=== PATIENT | female | born 1980 ===

== ENCOUNTER 2021-01-19 12:17 | Outpatient (REF) | payer OTHER, SELFPAY ==
[2021-01-19 13:55] LABS: MANUAL DIFF FLAG NO
[2021-01-19 14:02] LABS: Basophils Percent Auto 0.5 % (0-2); Eosinophils Absolute Auto 0.1 X10*3/uL (0.0-0.4); Eosinophils Percent Auto 0.9 % (0-4); Hematocrit 36.1 % (37-47); Hemoglobin 11.4 g/dl (12.0-16.0); Imm Gran Abs Auto 0.01 X10*3/uL (0.00-0.03); Imm Gran Pct Auto 0.2 % (0.0-0.4); Lymphocytes Absolute Auto 1.6 X10*3/uL (1.2-4.9); Lymphocytes Percent Auto 26.8 % (20-40); Mean Corpuscular HGB Conc 31.6 g/dl (31.0-35.0); Mean Corpuscular Hemoglobin 29.8 pg (27.0-33.0); Mean Corpuscular Volume 94.5 fL (80-98); Mean Platelet Volume 11.7 fL (9.4-12.3); Monocytes Absolute Auto 0.4 X10*3/uL (0.1-1.2); Monocytes Percent Auto 7.3 % (2-11); Neutrophils Absolute Auto 3.7 X10*3/uL (2.0-8.3); Neutrophils Percent Auto 64.3 % (45-73); Platelet Count 259 X10*3/uL (160-400); Red Blood Count 3.82 X10*6/uL (4.20-5.50); Red Cell Distribution Width 13.2 % (11.0-16.0); White Blood Count 5.8 X10*3/uL (4.8-10.8)
[2021-01-19 14:28] LABS: Alanine Aminotransferase 17 U/L (0-31); Albumin Level 4.2 g/dL (3.5-5.0); Alkaline Phosphatase 65 U/L (39-117); Anion Gap 12 (12-20); Aspartate Amino Transferase 14 U/L (5-31); Bilirubin Total 0.4 mg/dL (0.0-1.0); Blood Urea Nitrogen 11 mg/dL (9-16); Calcium 9.4 mg/dL (8.4-10.2); Carbon Dioxide 27 mmol/L (22-29); Chloride 104 mmol/L (96-108); Cholesterol 186 mg/dL; Estimated Glomerular Filt Rate > 60; Glucose Fasting 90 mg/dL (60-99); HDL Cholesterol 59 mg/dL; Iron 65 mcg/dL (30-160); LDL Cholesterol Calculated 96 mg/dl; Percent Iron Saturation 15 % (15-50); Potassium 4.7 mmol/L (3.3-5.1); Sodium 138 mmol/L (135-145); Total Iron Binding Capacity 422 mcg/dL (228-428); Total Protein 7.5 g/dL (6.5-8.0); Triglycerides 157 mg/dL; Unsaturated Iron Binding 357 ug/dL
[2021-01-19 14:45] LABS: Creatinine Urine 185.36 mg/dL
[2021-01-19 14:50] LABS: TSH reflex Free T4 1.98 uIU/mL (0.32-4.0); Vitamin D 25-OH Total 30.8 ng/mL (>30)
[2021-01-19 15:00] LABS: Folate > 20.0 ng/mL (> or = 4.0); Vitamin B12 615 pg/mL (200-900)
== END 2021-01-19 12:18 | disposition home or self-care (01) ==
LOC: HO.WFDLDS 12:17
PROVIDERS: Visit Provider Family Medicine
DX: Z00.00 Encounter for general adult medical examination without abnormal findings (principal); Z13.9 Encounter for screening, unspecified
CPT/HCPCS: 36415; 80053; 80061; 82043; 82306; 82607; 82746; 83540; 84443; 85025

== ENCOUNTER 2021-02-06 10:04 | Outpatient (REF) | payer OTHER, SELFPAY ==
[2021-02-08 18:11] LABS: HPV mRNA E6/E7 rflx Not Detected (Not Detected)
== END 2021-02-06 10:05 | disposition home or self-care (01) ==
LOC: HO.LAB 10:04
PROVIDERS: Visit Provider Obstetrics & Gynecology
DX: Z12.4 Encounter for screening for malignant neoplasm of cervix (principal)
CPT/HCPCS: 36415; 87624; 88142

== ENCOUNTER 2021-02-16 14:49 | Outpatient (REF) | payer OTHER, SELFPAY ==
--- NOTE | ~2021-02-16 | US_ITS ---
EXAMINATION: US PELVIS ULTRASOUND CLINICAL INFORMATION: Enlarged uterus. Age 40. LMP 01/21/2021. COMPARISON: None TECHNIQUE: Ultrasound of the pelvis is performed using both transabdominal and transvaginal transducers along with Doppler. Transvaginal imaging is performed due to inadequate visualization transabdominally. FINDINGS: Uterus: The uterus is anteverted and enlarged, measuring 20.0 x 8.0 x 14.4 cm. Volume 1,198 mL. The uterine surface is smooth. The myometrium is heterogeneous and the endometrial stripe is not clearly visualized. There is no visible fluid in the uterine cavity. There are several fibroids suggested, largest is central body fundus measuring 9.0 x 7.3 x 8.8 cm. There are 4 other fibroids are measured although the margins are ill-defined. They range in size from 5.1 cm to 2.3 cm. Possibility of superimposed adenomyosis cannot be excluded. Adnexa: The right ovary measures 3.7 x 2.2 x 2.5 cm. Volume 10.6 mL. There is no right adnexal mass. The left ovary is not visualized. There is no visible left adnexal mass and no pelvic ascites. US/US pelvic complete IMPRESSION: 1. Uterus: Enlarged uterus with probable multiple fibroids, largest visualized 9.0 cm. Possibility of superimposed adenomyosis cannot be excluded. If clinically indicated, further evaluation of the uterus could be performed with MRI without and with gadolinium contrast. 2. Adnexa: Unremarkable right ovary. Left ovary not visualized. No adnexal mass or pelvic ascites.
--- NOTE | ~2021-02-16 | US_ITS ---
EXAMINATION: US PELVIS ULTRASOUND CLINICAL INFORMATION: Enlarged uterus. Age 40. LMP 01/21/2021. COMPARISON: None TECHNIQUE: Ultrasound of the pelvis is performed using both transabdominal and transvaginal transducers along with Doppler. Transvaginal imaging is performed due to inadequate visualization transabdominally. FINDINGS: Uterus: The uterus is anteverted and enlarged, measuring 20.0 x 8.0 x 14.4 cm. Volume 1,198 mL. The uterine surface is smooth. The myometrium is heterogeneous and the endometrial stripe is not clearly visualized. There is no visible fluid in the uterine cavity. There are several fibroids suggested, largest is central body fundus measuring 9.0 x 7.3 x 8.8 cm. There are 4 other fibroids are measured although the margins are ill-defined. They range in size from 5.1 cm to 2.3 cm. Possibility of superimposed adenomyosis cannot be excluded. Adnexa: The right ovary measures 3.7 x 2.2 x 2.5 cm. Volume 10.6 mL. There is no right adnexal mass. The left ovary is not visualized. There is no visible left adnexal mass and no pelvic ascites. US/US transvaginal IMPRESSION: 1. Uterus: Enlarged uterus with probable multiple fibroids, largest visualized 9.0 cm. Possibility of superimposed adenomyosis cannot be excluded. If clinically indicated, further evaluation of the uterus could be performed with MRI without and with gadolinium contrast. 2. Adnexa: Unremarkable right ovary. Left ovary not visualized. No adnexal mass or pelvic ascites.
== END 2021-02-16 14:50 | disposition home or self-care (01) ==
LOC: HO.US 14:49
PROVIDERS: Visit Provider Obstetrics & Gynecology
DX: N85.2 Hypertrophy of uterus (principal)
CPT/HCPCS: 76830; 76856

== ENCOUNTER → 2021-02-22 11:41 | Outpatient (BNVA) | payer OTHER, SELFPAY | PROVIDERS: PCP Family Medicine; Visit Provider Obstetrics & Gynecology ==

== ENCOUNTER 2021-03-30 12:17 | Outpatient (REF) | payer OTHER, SELFPAY ==
--- NOTE | ~2021-03-30 | MM_ITS ---
EXAMINATION: MM SCREENING DIGITAL BREAST TOMOSYNTHESIS, BILATERAL CLINICAL INFORMATION: Screening. Asymptomatic. No prior breast imaging. Age 40. Family history breast cancer, maternal aunt. The lifetime risk of breast cancer based on the Tyrer-Cuzick Model is 11%. COMPARISON: None (current study represents initial baseline exam). TECHNIQUE: Digital breast tomosynthesis is performed in both the craniocaudal and mediolateral oblique views along with computer-aided detection (CAD). Synthesized 2D images are generated from the tomosynthesis. FINDINGS: There are scattered areas of fibroglandular density (ACR BI-RADS breast composition Category b). There is some minor scarring present consistent with prior history reduction mammoplasty. The left breast shows no mass or architectural abnormality. Neither breast shows abnormal calcifications. The axilla are unremarkable. Right breast has subtle parenchymal asymmetry mid 5:00 right breast on tomography, likely combination of reduction mammoplasty scarring and incompletely compressed glandular tissue. Patient will be recalled to fully characterize baseline appearance. MM/MM tomosynthesis screening BI IMPRESSION: 1. Right: Subtle parenchymal asymmetry mid 5:00 position on tomography, likely combination of scarring and incompletely compressed glandular tissue. 2. Left: No mammographic evidence of malignancy. ASSESSMENT: BI-RADS 0: Incomplete - Need Additional Imaging Evaluation RECOMMENDATION: 1. Additional views of the right breast (3-D spot CC, 3-D spot ML). 2. Targeted ultrasound if warranted after review of the additional views. 3. Radiology department staff will contact the patient for additional imaging. This patient's information was entered into a reminder system with a target due date for their next mammogram.
== END 2021-03-30 12:18 | disposition home or self-care (01) ==
LOC: HO.MAMMO 12:17
PROVIDERS: Visit Provider Family Medicine
DX: Z12.31 Encounter for screening mammogram for malignant neoplasm of breast (principal)
CPT/HCPCS: 77063; 77067

== ENCOUNTER 2021-04-13 14:37 | Outpatient (REF) | payer OTHER, SELFPAY ==
--- NOTE | ~2021-04-13 | MM_ITS ---
EXAMINATION: MM DIAGNOSTIC DIGITAL BREAST TOMOSYNTHESIS, RIGHT CLINICAL INFORMATION: Recall from baseline screening for parenchymal asymmetry mid lower right breast. Prior history reduction mammoplasty 2007. Family history breast cancer, maternal aunt. TC score 11%. COMPARISON: Mammography: 03/30/2021 (baseline). TECHNIQUE: Digital breast tomosynthesis is performed. 2D images are generated from the tomosynthesis. The following views are obtained: Spot CC x3, spot ML. FINDINGS: There are scattered areas of fibroglandular density (ACR BI-RADS breast composition Category b). The additional views show parenchymal asymmetry mid 6:00 right breast with admixture of fibroglandular and fatty tissue composition. There is no mass or three-dimensional architectural abnormality. Finding is likely benign. Management plan is for short interval follow-up right mammography in 6 months to confirm stability. Results are discussed with the patient at time of visit. MM/MM tomosynthesis added views R IMPRESSION: Additional views show probable benign parenchymal asymmetry mid 6:00 right breast. ASSESSMENT: BI-RADS 3: Probably Benign RECOMMENDATION: Diagnostic right mammography in 6 months. This patient's information was entered into a reminder system with a target due date for their next mammogram.
== END 2021-04-13 14:38 | disposition home or self-care (01) ==
LOC: HO.MAMMO 14:37
PROVIDERS: Visit Provider Family Medicine
DX: N64.89 Other specified disorders of breast (principal)
CPT/HCPCS: 77061; 77065

== ENCOUNTER 2021-08-04 10:03 | Outpatient (REF) | payer OTHER, SELFPAY ==
[2021-08-04 14:01] LABS: Basophils Percent Auto 0.6 % (0-2); Hematocrit 34.3 % (37-47); Hemoglobin 10.7 g/dl (12.0-16.0); Lymphocytes Absolute Auto 1.3 X10*3/uL (1.2-4.9); Lymphocytes Percent Auto 41.6 % (20-40); Mean Corpuscular HGB Conc 31.2 g/dl (31.0-35.0); Mean Corpuscular Hemoglobin 28.3 pg (27.0-33.0); Mean Corpuscular Volume 90.7 fL (80-98); Mean Platelet Volume 11.8 fL (9.4-12.3); Monocytes Absolute Auto 0.2 X10*3/uL (0.1-1.2); Monocytes Percent Auto 7.1 % (2-11); Neutrophils Absolute Auto 1.5 X10*3/uL (2.0-8.3); Neutrophils Percent Auto 49.7 % (45-73); Platelet Count 281 X10*3/uL (160-400); Red Blood Count 3.78 X10*6/uL (4.20-5.50); Red Cell Distribution Width 13.9 % (11.0-16.0); White Blood Count 3.1 X10*3/uL (4.8-10.8)
[2021-08-04 14:02] LABS: MANUAL DIFF FLAG NO
[2021-08-04 14:23] LABS: Alanine Aminotransferase 10 U/L (0-31); Albumin Level 4.3 g/dL (3.5-5.0); Alkaline Phosphatase 66 U/L (39-117); Anion Gap 10 (12-20); Aspartate Amino Transferase 13 U/L (5-31); Bilirubin Total 0.3 mg/dL (0.0-1.0); Blood Urea Nitrogen 11 mg/dL (9-16); Carbon Dioxide 28 mmol/L (22-29); Chloride 107 mmol/L (96-108); Estimated Glomerular Filt Rate > 60; Glucose Fasting 90 mg/dL (60-99); Iron 40 mcg/dL (30-160); Percent Iron Saturation 9 % (15-50); Potassium 4.7 mmol/L (3.3-5.1); Sodium 140 mmol/L (135-145); Total Iron Binding Capacity 439 mcg/dL (228-428); Total Protein 7.6 g/dL (6.5-8.0); Unsaturated Iron Binding 399 ug/dL
== END 2021-08-04 10:04 | disposition home or self-care (01) ==
LOC: HO.WFDLDS 10:03
PROVIDERS: Visit Provider Family Medicine
DX: Z00.00 Encounter for general adult medical examination without abnormal findings (principal); D64.9 Anemia, unspecified; R73.01 Impaired fasting glucose
CPT/HCPCS: 36415; 80053; 83540; 85025

== ENCOUNTER → 2021-08-23 14:10 | Outpatient (BNVA) | payer OTHER, SELFPAY | PROVIDERS: PCP Family Medicine; Visit Provider Obstetrics & Gynecology ==

== ENCOUNTER 2021-10-19 13:57 | Outpatient (REF) | payer OTHER, SELFPAY ==
--- NOTE | ~2021-10-19 | MM_ITS ---
EXAMINATION: MM DIAGNOSTIC DIGITAL BREAST TOMOSYNTHESIS, RIGHT CLINICAL INFORMATION: Short interval follow-up probable benign parenchymal asymmetry mid 6:00 right breast. Prior history reduction mammoplasty, 2007. The lifetime risk of breast cancer based on the Tyrer-Cuzick Model is 13%. COMPARISON: Mammography: 04/13/2021, 03/30/2021 (baseline). TECHNIQUE: Digital breast tomosynthesis is performed in both the craniocaudal and mediolateral oblique views along with computer-aided detection (CAD). Synthesized 2D images are generated from the tomosynthesis. FINDINGS: There are scattered areas of fibroglandular density (ACR BI-RADS breast composition Category b). Parenchymal pattern is unremarkable. There is no mass or developing density or architectural abnormality. Parenchymal asymmetry lower right breast on MLO view noted at screening is less conspicuous. Unremarkable parenchymal pattern. Return to screening. Results are provided to the patient at time of visit by the technologist. MM/MM tomosynthesis diagnostic RT IMPRESSION: No mammographic evidence of malignancy. ASSESSMENT: BI-RADS 2: Benign RECOMMENDATION: Routine annual mammography screening. This patient's information was entered into a reminder system with a target due date for their next mammogram.
== END 2021-10-19 13:58 | disposition home or self-care (01) ==
LOC: HO.MAMMO 13:57
PROVIDERS: Visit Provider Family Medicine
DX: N64.89 Other specified disorders of breast (principal)
CPT/HCPCS: 77061; 77065

== ENCOUNTER 2021-11-03 09:53 | Outpatient (REF) | payer OTHER, SELFPAY ==
[2021-11-03 11:54] LABS: MANUAL DIFF FLAG NO
[2021-11-03 12:04] LABS: Basophils Percent Auto 0.3 % (0-2); Eosinophils Absolute Auto 0.1 X10*3/uL (0.0-0.4); Eosinophils Percent Auto 1.8 % (0-4); Hematocrit 32.3 % (37.0-47.0); Hemoglobin 9.8 g/dl (12.0-16.0); Imm Gran Abs Auto 0.01 X10*3/uL (0.00-0.03); Imm Gran Pct Auto 0.3 % (0.0-0.4); Lymphocytes Absolute Auto 1.1 X10*3/uL (1.2-4.9); Lymphocytes Percent Auto 34.6 % (20-40); Mean Corpuscular HGB Conc 30.3 g/dl (31.0-35.0); Mean Corpuscular Hemoglobin 27.3 pg (27.0-33.0); Mean Platelet Volume 11.7 fL (9.4-12.3); Monocytes Absolute Auto 0.3 X10*3/uL (0.1-1.2); Neutrophils Absolute Auto 1.8 x10*3/uL (2.0-8.3); Platelet Count 293 X10*3/uL (160-400); Red Blood Count 3.59 X10*6/uL (4.20-5.50); Red Cell Distribution Width 14.5 % (11.0-16.0); White Blood Count 3.3 X10*3/uL (4.8-10.8)
[2021-11-03 12:05] LABS: Estimated Average Glucose 114 mg/dL; Hemoglobin A1c % 5.6 %
[2021-11-03 12:27] LABS: Iron 35 mcg/dL (30-160); Percent Iron Saturation 8 % (15-50); Total Iron Binding Capacity 431 mcg/dL (228-428); Unsaturated Iron Binding 396 ug/dL
== END 2021-11-03 09:54 | disposition home or self-care (01) ==
LOC: HO.WFDLDS 09:53
PROVIDERS: Visit Provider Family Medicine
DX: Z00.00 Encounter for general adult medical examination without abnormal findings (principal); D50.9 Iron deficiency anemia, unspecified; R73.01 Impaired fasting glucose
CPT/HCPCS: 36415; 83036; 83540; 85025

== ENCOUNTER 2021-12-18 15:04 | Outpatient (REF) | payer OTHER, SELFPAY ==
--- NOTE | ~2021-12-18 | US_ITS ---
EXAMINATION: US PELVIS CLINICAL INFORMATION: Excessive menstrual bleeding. COMPARISON: None TECHNIQUE: Ultrasound of the pelvis is performed using both transabdominal and transvaginal transducers along with Doppler. Transvaginal imaging is performed due to inadequate visualization transabdominally. Comparison with January 2021 exam is difficult. FINDINGS: The uterus is enlarged and measures 17.8 x 10.6 x 12.8 cm in dimension. There are multiple uterine lesions probably representing fibroids. There is a 6.2 x 5 x 6.2 cm fibroid in the anterior lower uterine segment that may be increased from 3.6 x 3.3 x 4.3 cm. There is a 7.2 x 6.1 x 5.8 cm central upper uterine body fibroid adjacent to the endometrium slightly decreased in size from 8.8 x 7.3 x 9 cm. There is a 3.5 x 3.9 x 3.6 cm posterior uterine body fibroid that is not appreciably changed. There is a 3.9 x 4.6 x 4.4 cm upper posterior uterine body fibroid that is not appreciably changed. The previously identified subserosal left fundal 2 cm uterine fibroid on January 2021 exam not appreciated on the current exam. The endometrium is not seen. The right ovary is seen transabdominally only and normal-appearing and measures 2 x 2.7 x 5.8 cm. The left ovary is not seen. There is no fluid in the pelvis. US/US pelvic and transvaginal IMPRESSION: Enlarged fibroid uterus. Comparison of fibroids with January 2021 exam is difficult. There may be interval increase in the anterior lower uterine body fibroid now measuring 6.2 x 5 x 6.2 cm. Endometrium and left ovary not seen.
== END 2021-12-18 15:05 | disposition home or self-care (01) ==
LOC: HO.US 15:04
PROVIDERS: PCP Family Medicine; Visit Provider Advanced Practice Midwife
DX: N92.0 Excessive and frequent menstruation with regular cycle (principal)
CPT/HCPCS: 76830; 76856

== ENCOUNTER 2021-12-28 09:43 | Outpatient (REF) | payer OTHER, SELFPAY ==
--- NOTE | ~2021-12-28 | MR_ITS ---
EXAMINATION: MR PELVIS WITHOUT AND WITH CONTRAST CLINICAL INFORMATION: Fibroids. COMPARISON: Previous pelvic ultrasounds December 2021 and January 2021. TECHNIQUE: Sagittal axial and coronal sequences through the pelvis with and without contrast. The patient received 10 mL Gadavist contrast. FINDINGS: The uterus is enlarged and measures 18.5 x 15.0 x 11.0 cm in sagittal, transverse and AP dimension. By MRI, there is a suggestion of a large central left uterine mass displacing the endometrium posteriorly and to the right. This measures 13.0 x 7.8 x 11.3 cm in sagittal, AP, and transverse dimensions. This is low signal on T1-weighted sequences, heterogeneous on T2-weighted sequences and demonstrates homogeneous enhancement. There is a left adnexal mass that measures 7.0 x 4.0 x 6.0 cm in sagittal, AP, and transverse dimensions. This is low signal on T1-weighted sequences, heterogeneous signal on T2 weighted sequences and demonstrates enhancement. This is continuous with the uterus and likely represents a pedunculated fibroid. The left ovary is not identified. There is an adjacent more anterior 5.0 x 3.0 x 3.5 cm simple-appearing cyst. The right ovary is normal-appearing and measures 3.6 x 2.0 x 2.0 cm in sagittal, AP, and transverse dimensions. This contains small simple cysts or follicles. The endometrium appears displaced posteriorly and to the right. The endometrium does not appear thickened measuring 3 mm. The junctional zone does not appear thickened. The cervix is normal-appearing. The bladder is displaced by the enlarged uterus. There is a small amount of fluid in the pelvis. There are no enlarged lymph nodes. Bony structures are unremarkable. MR/MR pelvis wo/w con IMPRESSION: Enlarged uterus. Large left central uterine mass probably representing a fibroid measuring 13.0 x 8.0 x 11.0 cm and 7.0 x 4.0 x 6.0 cm left adnexal mass suggestive of a pedunculated fibroid. The endometrium is displaced posteriorly and to the right by the fibroid. The endometrium does not appear thickened. The left ovary is not seen. 5.0 x 3.5 x 3.0 cm simple left adnexal cyst. Normal-appearing right ovary. Small amount of fluid in the pelvis.
== END 2021-12-28 09:44 | disposition home or self-care (01) ==
LOC: HO.MRI 09:43
PROVIDERS: Visit Provider Radiology Vascular & Interventional Radiology
DX: D25.9 Leiomyoma of uterus, unspecified (principal)
CPT/HCPCS: 72197; A9585

== ENCOUNTER 2022-01-05 08:16 | Outpatient (REF) | payer OTHER, SELFPAY ==
[2022-01-05 10:38] LABS: MANUAL DIFF FLAG NO
[2022-01-05 10:39] LABS: Basophils Percent Auto 0.6 % (0-2); Eosinophils Absolute Auto 0.1 X10*3/uL (0.0-0.4); Eosinophils Percent Auto 1.4 % (0-4); Hemoglobin 9.5 g/dl (12.0-16.0); Imm Gran Abs Auto 0.01 X10*3/uL (0.00-0.03); Imm Gran Pct Auto 0.2 % (0.0-0.4); Lymphocytes Absolute Auto 1.3 X10*3/uL (1.2-4.9); Lymphocytes Percent Auto 27.1 % (20-40); Mean Corpuscular HGB Conc 29.7 g/dl (31.0-35.0); Mean Corpuscular Hemoglobin 25.6 pg (27.0-33.0); Mean Corpuscular Volume 86.3 fL (80.0-98.0); Mean Platelet Volume 12.3 fL (9.4-12.3); Monocytes Absolute Auto 0.4 X10*3/uL (0.1-1.2); Monocytes Percent Auto 7.9 % (2-11); Neutrophils Percent Auto 62.8 % (45-73); Platelet Count 311 X10*3/uL (160-400); Red Blood Count 3.71 X10*6/uL (4.20-5.50); Red Cell Distribution Width 15.2 % (11.0-16.0); White Blood Count 4.8 X10*3/uL (4.8-10.8)
[2022-01-05 11:18] LABS: Blood Urea Nitrogen 11 mg/dL (9-16); Estimated Glomerular Filt Rate > 60
[2022-01-06 08:47] LABS: Follicle Stimulating Hormone 9.8 mIU/mL; Lutenizing Hormone 8.5 mIU/mL
[2022-01-10 23:36] LABS: Estradiol Ultra Sensitive 63 pg/mL
== END 2022-01-05 08:17 | disposition home or self-care (01) ==
LOC: HO.WFDLDS 08:16
PROVIDERS: Absent Provider Radiology Vascular & Interventional Radiology; PCP Family Medicine; Visit Provider Obstetrics & Gynecology
DX: D25.9 Leiomyoma of uterus, unspecified (principal); R94.4 Abnormal results of kidney function studies; R79.89 Other specified abnormal findings of blood chemistry; Z31.49 Encounter for other procreative investigation and testing
CPT/HCPCS: 36415; 82397; 82565; 82670; 83001; 83002; 84520; 85025

== ENCOUNTER 2022-01-19 11:21 | Outpatient (REF) | payer OTHER, SELFPAY ==
[2022-01-19 13:43] LABS: Iron 34 mcg/dL (30-160); Percent Iron Saturation 7 % (15-50); Total Iron Binding Capacity 484 mcg/dL (228-428); Unsaturated Iron Binding 450 ug/dL
[2022-01-19 14:22] LABS: Folate 13.3 ng/mL (> or = 4.0); Vitamin B12 461 pg/mL (200-900)
== END 2022-01-19 11:22 | disposition home or self-care (01) ==
LOC: HO.WFDLDS 11:21
PROVIDERS: Visit Provider Hospitalist
DX: D50.9 Iron deficiency anemia, unspecified (principal)
CPT/HCPCS: 36415; 82607; 82746; 83540

== ENCOUNTER → 2022-01-24 08:13 | Outpatient (BNV) | payer OTHER, SELFPAY | PROVIDERS: PCP Family Medicine; Referring Provider Hospitalist; Visit Provider Internal Medicine | DX: D50.9 Iron deficiency anemia, unspecified (principal); Z98.84 Bariatric surgery status; Z90.710 Acquired absence of both cervix and uterus | CPT/HCPCS: 99203; 99213; 99214 ==

== ENCOUNTER 2022-02-08 07:58 | Outpatient (REF) | payer OTHER, SELFPAY | END 2022-02-08 07:59 | disposition home or self-care (01) | LOC: HO.MDS 07:58 | PROVIDERS: Visit Provider Internal Medicine | DX: D50.9 Iron deficiency anemia, unspecified (principal) | CPT/HCPCS: 96365; J1200; J1750; Q0163 ==

== ENCOUNTER 2022-02-09 08:07 | Outpatient (REF) | payer OTHER, SELFPAY ==
[2022-02-09 11:35] LABS: Hematocrit 29.8 % (37.0-47.0); Hemoglobin 8.7 g/dl (12.0-16.0); Mean Corpuscular HGB Conc 29.2 g/dl (31.0-35.0); Mean Corpuscular Hemoglobin 24.6 pg (27.0-33.0); Mean Corpuscular Volume 84.4 fL (80.0-98.0); Mean Platelet Volume 12.1 fL (9.4-12.3); Platelet Count 210 X10*3/uL (160-400); Red Blood Count 3.53 X10*6/uL (4.20-5.50); White Blood Count 4.4 X10*3/uL (4.8-10.8)
[2022-02-09 12:33] LABS: Ferritin 9 ng/mL (10-250)
[2022-02-09 12:58] LABS: Vitamin D 25-OH Total 25.1 ng/mL (>30)
[2022-02-10 13:06] LABS: BV Int Neg Control Negative (Negative); BV Int Pos Control Positive (Positive)
[2022-02-14 01:06] LABS: Zinc 70 mcg/dL (60-130)
[2022-02-15 12:31] LABS: Vitamin A 40 mcg/dL (38-98)
[2022-02-15 14:05] LABS: Vitamin B1 9 nmol/L (8-30)
== END 2022-02-09 08:08 | disposition home or self-care (01) ==
LOC: HO.LAB 08:07
PROVIDERS: Advanced Practice Midwife; Internal Medicine; PCP Family Medicine; Visit Provider Physician Assistant Surgical
DX: Z01.411 Encounter for gynecological examination (general) (routine) with abnormal findings (principal); D25.9 Leiomyoma of uterus, unspecified; N89.8 Other specified noninflammatory disorders of vagina; E66.9 Obesity, unspecified; D50.9 Iron deficiency anemia, unspecified; Z68.39 Body mass index [BMI] 39.0-39.9, adult
CPT/HCPCS: 36415; 82306; 82728; 84425; 84443; 84590; 84630; 85027; 87480; 87510; 87660

== ENCOUNTER → 2022-02-22 12:08 | Outpatient (BNVA) | payer OTHER, SELFPAY | PROVIDERS: Visit Provider Obstetrics & Gynecology | DX: D21.9 Benign neoplasm of connective and other soft tissue, unspecified (principal) | CPT/HCPCS: Q3014 ==

== ENCOUNTER 2022-03-05 20:11 | Emergency (ER) | payer OTHER, SELFPAY ==
[2022-03-05 23:30] VITALS: BP 155/94; PULSE 91; RESP 16; TEMP 37.1; O2SAT 100; BMI 40.7
[2022-03-06 04:15] VITALS: BP 151/83; PULSE 83; RESP 12; TEMP 37.3; O2SAT 97
[2022-03-06 05:24] LABS: Appearance Urine HAZY; Color Urine YELLOW; Glucose Urine UA NEG (NEG); Leukocyte Esterase Urine NEG (NEG); Nitrite Urine NEG (NEG); Specific Gravity - Urine >= 1.030 (1.005-1.025); Urine Blood NEG (NEG); Urine Ketones NEG (NEG); Urine Protein NEG (NEG-TRACE)
[2022-03-06 05:30] LABS: Bacteria Urine 1+ /LPF; Hyaline Casts Urine 0-2 /LPF; Mucus Urine 2+ /LPF; RBC Urine 0 /HPF (0); Squamous Epithelial Cell Urine 2+ /LPF; WBC Urine 0-2 /HPF (0-4)
--- NOTE | 2022-03-06 05:44 | PC.NURSE ---
pt a&o, no sob or chest pain. pt awaiting provider.
[2022-03-06 05:59] VITALS: BP 123/51; PULSE 74; RESP 16; TEMP 37.2; O2SAT 99
[2022-03-06 06:57] LABS: UPreg QC Valid YES; Urine Pregnancy NEGATIVE (NEGATIVE)
--- NOTE | 2022-03-06 07:13 | ED_ITS ---
HPI - General Adult General Chief complaint: General Medical Stated complaint: swollen ear, chest & throat pain Time Seen by Provider: 03/06/22 00:44 Source: patient Mode of arrival: ambulatory Limitations: no limitations History of Present Illness HPI narrative: 41 years old female came in with complaint of right ear problem evaluation. Patient denied having right ear ringing and pain for about 2 years now been evaluated by PCP and ENT doctor with a negative workup as reported by the patient, came in complaining of pain behind the right ear with some swelling, no fever chills. Patient also noticed that she is sometimes choking on her saliva causing her to cough. Patient due a this [employer] work been complaining of bilateral hand numbness and tingling for many months. Related Data Home Medications Medication Instructions Recorded Confirmed ciclopirox 1 % shampoo 1 ea TOPICAL DAILY 02/09/22 02/22/22 norethindrone acetate 5 mg tablet 5 mg PO DAILY 02/09/22 02/22/22 tretinoin 0.025 % topical gel 1 appl TOPICAL DAILY 02/09/22 02/22/22 Previous Rx's Medication Instructions Recorded fluticasone propionate 50 1 spray INTRANASAL Q12H 30 Days 11/16/21 mcg/actuation nasal #16 g spray,suspension (Flonase Allergy Relief) ferrous sulfate 325 mg (65 mg 325 mg PO BID #60 tab 02/09/22 iron) tablet cholecalciferol (vitamin D3) 125 125 mcg PO DAILY #30 cap 02/11/22 mcg (5,000 unit) capsule Allergies Allergy/AdvReac Type Severity Reaction Status Date / Time Penicillins [PENICILLINS] Allergy Unknown THROAT Verified 02/22/22 11:44 SWELLING, urticaria, angiodema, difficult breathing pramipexole [From MIRAPEX] Allergy Unknown NAUSEA & Verified 02/22/22 11:44 VOMITING, DIARRHEA ropinirole [ROPINIROLE] Allergy Unknown NAUSEA & Verified 02/22/22 11:44 VOMITING, dizziness, weakness, anxiety Dust Mite Mixed Allergen Ext Allergy Unknown Unknown Uncoded 02/09/22 10:04 Pineapple Concentrate Allergy Unknown Unknown Uncoded 02/09/22 10:04 Review of Systems Review of Systems: All other systems are reviewed and are negative Constitutional: Reports as per HPI and Reports no additional constitutional complaints Eyes: Reports as per HPI and Reports no additional eye complaints Reports system reviewed and no additional complaints, except as documented Cardiovascular: Reports as per HPI and Reports no additional cardiovascular complaints Respiratory: Reports as per HPI and Reports no additional respiratory complaints Gastrointestinal: Reports as per HPI and Reports no additional gastrointestinal complaints Genitourinary: Reports no additional female genitourinary complaints Musculoskeletal: Reports no additional musculoskeletal complaints Skin/Breast: Reports system reviewed and no additional complaints, except as docu Psychiatric: Reports no additional psychiatric complaints Endocrine: Reports no additional endocrine complaints Hematologic/Lymphatic: Reports no additional hematologic/lymphatic complaints Allergic/Immunologic: Reports no additional allergic/immunologic complaints Reports system reviewed and no additional complaints, except as documented and Reports Abnormal speech present [facility] Past Medical History Medical History Acanthosis nigricans Anemia Asthma Hepatic steatosis Hepatomegaly Low back pain Routine adult health maintenance Seborrheic dermatitis Uterine fibroid Vitamin D deficiency Surgical History H/O bilateral breast reduction surgery History of myomectomy History of sleeve gastrectomy History of tonsillectomy Family History Family History Father HTN (hypertension) Diabetes DIVYA (obstructive sleep apnea) Mother HTN (hypertension) Hypoglycemia Cataract Osteoporosis Maternal Aunt Breast cancer Maternal Grandmother Stroke Social History Social History Household Members: None Housing: Apartment Are you a primary child day care teacher to a significant other at home: No Do you presently have visiting nurse or other home services: No Alcohol intake: never Patient Tobacco Use Status: Never used Tobacco Use of substances other than those prescribed or required for medical reasons: No Advance Directives: No Advance Directives Information Provided: Yes service: No Current occupational status: employed 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 Blood pressure normal. Heart rate normal. Respiration rate normal. Temperature normal. Oxygen saturation normal. Appearance: Alert. Oriented X3. No acute distress. Head: Normal external exam. Normocephalic. Atraumatic. No Sung signs noted. No raccoon eyes noted Eyes: PERRLA. EOMI. Conjunctiva and sclera normal. Eyelids normal. ENT: TM's Normal. Pharynx normal. Uvula midline. Moist mucous membranes. No trismus noted. No drooling noted. No muffled voice noted. Neck: Normal inspection. Neck supple. FROM. No adenopathy. Thyroid Normal. No meningeal signs. No neck mass noted. CVS: Normal heart rate and rhythm. Heart sound normal. No murmurs noted. Pulses normal throughout. Respiratory: No respiratory distress. Painless inspiration. Breath sounds normal. No wheezes/rales/rhonchi noted. Chest nontender. No accessory muscle usage noted or decreased air movement noted. Abdomen: Soft and nontender. Bowel sounds normal in all 4 quadrants. No distention noted. No organomegaly noted. No visible injury noted. Back: No CVA tenderness. Full range of motion noted. Skin: Skin warm and dry. Normal skin color. Normal skin turgor. No rashes/lesions/lacerations noted. Extremities: No lower extremity edema. Extremities exhibit normal range of motion. Extremities nontender. Neuro: Oriented X 3. Cranial nerve exam: II-XII are grossly intact No motor deficit. No sensory deficit. Reflexes normal. Course Course Course Narrative: Assessment and plan. 41 years old female came in for evaluation of her right ear external pain with swelling behind the right ear, physical exam reflected normal ENT exam with no concern of infection, no swelling redness or hotness were appreciated behind the right ear. Patient was instructed to follow up with PCP/ENT doctor for further evaluation. Medical Decision Making Lab Data Lab results reviewed: Yes I reviewed the patient's lab results. Labs: Lab Results 03/06/22 03/06/22 Range/Units 05:18 05:18 Urine Color YELLOW Urine Appearance HAZY Urine pH 5.0 (5.0-8.0) Ur Specific [place] >= 1.030 H (1.005-1.025) Urine Protein NEG (NEG-TRACE) MG/DL Urine Glucose (UA) NEG (NEG) MG/DL Urine Ketones NEG (NEG) MG/DL Urine Blood NEG (NEG) Urine Nitrite NEG (NEG) Ur Leukocyte Esterase NEG (NEG) Urine RBC 0 (0) /HPF Urine WBC 0-2 (0-4) /HPF Ur Squamous Epith Cells 2+ /LPF Urine Bacteria 1+ /LPF Hyaline Casts 0-2 /LPF Urine Mucus 2+ /LPF Urine Test NEGATIVE (NEGATIVE) Discharge Plan Discharge Clinical Impression: Ear pain, right Patient Disposition: Home, Self-Care Instructions: Earache (ED) Prescriptions: No Action cholecalciferol (vitamin D3) 125 mcg (5,000 unit) capsule 125 mcg PO DAILY Qty: 30 3RF ferrous sulfate 325 mg (65 mg iron) Tablet 325 mg PO BID Qty: 60 0RF fluticasone propionate [Flonase Allergy Relief] 50 mcg/actuation spray,suspension 1 spray intranasal Q12H 30 Days Qty: 16 3RF Rx Instructions: administer into each nostril ciclopirox 1 % shampoo 1 ea topical DAILY 0RF norethindrone acetate 5 mg tablet 5 mg PO DAILY 0RF tretinoin 0.025 % gel 1 appl topical DAILY 0RF Referrals: Chuck Ocampo [Physician] - 2 days Stand Alone Forms: Work/School Release
--- NOTE | 2022-03-06 07:30 | PC.NURSE ---
pt medically cleared for discharge. discharge instructions reviewed with pt. pt refused vs to be done
== END 2022-03-06 07:30 | disposition home or self-care (01) ==
PROVIDERS: Emergency Provider Emergency Medicine
DX: H92.01 Otalgia, right ear (principal)
CPT/HCPCS: 81001; 81025; 99282; 99284

== ENCOUNTER 2022-03-16 08:13 | Outpatient (REF) | payer OTHER, SELFPAY ==
[2022-03-16 10:30] LABS: MANUAL DIFF FLAG NO
[2022-03-16 10:35] LABS: Basophils Percent Auto 0.5 % (0-2); Eosinophils Absolute Auto 0.1 X10*3/uL (0.0-0.4); Eosinophils Percent Auto 2.4 % (0-4); Hematocrit 34.9 % (37.0-47.0); Hemoglobin 10.2 g/dl (12.0-16.0); Lymphocytes Absolute Auto 1.6 X10*3/uL (1.2-4.9); Lymphocytes Percent Auto 42.2 % (20-40); Mean Corpuscular HGB Conc 29.2 g/dl (31.0-35.0); Mean Corpuscular Hemoglobin 25.8 pg (27.0-33.0); Mean Corpuscular Volume 88.4 fL (80.0-98.0); Monocytes Absolute Auto 0.3 X10*3/uL (0.1-1.2); Monocytes Percent Auto 6.6 % (2-11); Neutrophils Absolute Auto 1.8 x10*3/uL (2.0-8.3); Neutrophils Percent Auto 48.3 % (45-73); Platelet Count 268 X10*3/uL (160-400); Red Blood Count 3.95 X10*6/uL (4.20-5.50); Red Cell Distribution Width 19.5 % (11.0-16.0); White Blood Count 3.8 X10*3/uL (4.8-10.8)
[2022-03-16 10:42] LABS: Appearance Urine CLOUDY; Color Urine YELLOW; Glucose Urine UA NEG (NEG); Leukocyte Esterase Urine NEG (NEG); Nitrite Urine NEG (NEG); PH 5.5 (5.0-8.0); Specific Gravity - Urine >= 1.030 (1.005-1.025); Urine Blood NEG (NEG); Urine Ketones NEG (NEG); Urine Protein NEG (NEG-TRACE)
[2022-03-16 10:52] LABS: Alanine Aminotransferase 22 U/L (0-31); Albumin Level 4.2 g/dL (3.5-5.0); Alkaline Phosphatase 51 U/L (39-117); Anion Gap 11 (12-20); Aspartate Amino Transferase 20 U/L (5-31); Bilirubin Total 0.4 mg/dL (0.0-1.0); Blood Urea Nitrogen 9 mg/dL (9-16); Calcium 9.5 mg/dL (8.4-10.2); Carbon Dioxide 22 mmol/L (22-29); Chloride 109 mmol/L (96-108); Cholesterol 164 mg/dL; Estimated Glomerular Filt Rate > 60; Glucose Fasting 84 mg/dL (60-99); HDL Cholesterol 36 mg/dL; LDL Cholesterol Calculated 106 mg/dl; Potassium 4.3 mmol/L (3.3-5.1); Sodium 138 mmol/L (135-145); Total Protein 7.3 g/dL (6.5-8.0); Triglycerides 112 mg/dL
[2022-03-16 11:07] LABS: TSH reflex Free T4 1.59 uIU/mL (0.32-4.0)
[2022-03-16 11:15] LABS: Microalbum/Creatinine Ratio Ur 6.5 ug/mg cr
== END 2022-03-16 08:14 | disposition home or self-care (01) ==
LOC: HO.WFDLDS 08:13
PROVIDERS: Visit Provider Family Medicine
DX: Z00.00 Encounter for general adult medical examination without abnormal findings (principal); I10 Essential (primary) hypertension
CPT/HCPCS: 36415; 80053; 80061; 81003; 82043; 84443; 85025

== ENCOUNTER 2022-03-30 08:10 | Outpatient (REF) | payer OTHER, SELFPAY ==
[2022-03-30 11:34] LABS: MANUAL DIFF FLAG NO
[2022-03-30 11:40] LABS: Basophils Percent Auto 0.6 % (0-2); Eosinophils Absolute Auto 0.1 X10*3/uL (0.0-0.4); Hematocrit 34.2 % (37.0-47.0); Hemoglobin 10.4 g/dl (12.0-16.0); Imm Gran Abs Auto 0.01 X10*3/uL (0.00-0.03); Imm Gran Pct Auto 0.2 % (0.0-0.4); Lymphocytes Absolute Auto 1.9 X10*3/uL (1.2-4.9); Mean Corpuscular HGB Conc 30.4 g/dl (31.0-35.0); Mean Corpuscular Hemoglobin 25.9 pg (27.0-33.0); Mean Corpuscular Volume 85.3 fL (80.0-98.0); Monocytes Absolute Auto 0.3 X10*3/uL (0.1-1.2); Neutrophils Absolute Auto 2.7 x10*3/uL (2.0-8.3); Neutrophils Percent Auto 54.2 % (45-73); Platelet Count 285 X10*3/uL (160-400); Red Blood Count 4.01 X10*6/uL (4.20-5.50); Red Cell Distribution Width 18.8 % (11.0-16.0)
[2022-03-30 12:06] LABS: Alanine Aminotransferase 13 U/L (0-31); Albumin Level 4.1 g/dL (3.5-5.0); Alkaline Phosphatase 50 U/L (39-117); Anion Gap 9 (12-20); Aspartate Amino Transferase 12 U/L (5-31); Bilirubin Total 0.3 mg/dL (0.0-1.0); Blood Urea Nitrogen 10 mg/dL (9-16); Calcium 9.6 mg/dL (8.4-10.2); Carbon Dioxide 24 mmol/L (22-29); Chloride 109 mmol/L (96-108); Estimated Glomerular Filt Rate > 60; Glucose Fasting 88 mg/dL (60-99); Potassium 4.3 mmol/L (3.3-5.1); Sodium 138 mmol/L (135-145); Total Protein 7.2 g/dL (6.5-8.0)
[2022-03-30 13:10] LABS: Erythrocyte Sedimentation Rate 20 MM/HR (0-20)
[2022-04-02 19:46] LABS: CRP High Sensitivity 9.4 mg/L
== END 2022-03-30 08:11 | disposition home or self-care (01) ==
LOC: HO.WFDLDS 08:10
PROVIDERS: Visit Provider Family Medicine
DX: Z00.00 Encounter for general adult medical examination without abnormal findings (principal); D50.9 Iron deficiency anemia, unspecified; R53.83 Other fatigue
CPT/HCPCS: 36415; 80053; 85025; 85652; 86141

== ENCOUNTER 2022-04-12 11:58 | Outpatient (REF) | payer OTHER, SELFPAY ==
--- NOTE | ~2022-04-12 | MM_ITS ---
EXAMINATION: MM SCREENING DIGITAL BREAST TOMOSYNTHESIS, BILATERAL CLINICAL INFORMATION: Screening. Asymptomatic. Status post breast reduction surgery. The lifetime risk of breast cancer based on the Tyrer-Cuzick Model is 12.6%. COMPARISON: Mammography: October 19, 2021 and studies dating back to March 30, 2021 TECHNIQUE: Digital breast tomosynthesis is performed in both the craniocaudal and mediolateral oblique views along with computer-aided detection (CAD). Synthesized 2D images are generated from the tomosynthesis. Left exaggerated craniocaudal view also performed. FINDINGS: There are scattered areas of fibroglandular density (ACR BI-RADS breast composition Category b). There are no significant masses, abnormal calcifications, or other abnormalities. MM/MM tomosynthesis screening BI IMPRESSION: There are no significant changes from prior study. ASSESSMENT: BI-RADS 1: Negative RECOMMENDATION: Routine annual mammography screening. This patient's information was entered into a reminder system with a target due date for their next mammogram.
== END 2022-04-12 11:59 | disposition home or self-care (01) ==
LOC: HO.MAMMO 11:58
PROVIDERS: Visit Provider Family Medicine
DX: Z12.31 Encounter for screening mammogram for malignant neoplasm of breast (principal)
CPT/HCPCS: 77063; 77067

== ENCOUNTER 2022-04-26 14:34 | Outpatient (REF) | payer OTHER, SELFPAY ==
[2022-04-26 15:49] LABS: Erythrocyte Sedimentation Rate 25 MM/HR (0-20)
[2022-04-28 14:22] LABS: CRP High Sensitivity >10.0 mg/L
== END 2022-04-26 14:35 | disposition home or self-care (01) ==
LOC: HO.LAB 14:34
PROVIDERS: Absent Provider Otolaryngology; PCP Family Medicine; Visit Provider Hospitalist
DX: J30.89 Other allergic rhinitis (principal); M25.50 Pain in unspecified joint
CPT/HCPCS: 36415; 82785; 85652; 86003; 86141

== ENCOUNTER 2022-07-05 10:09 | Outpatient (REF) | payer OTHER, SELFPAY ==
[2022-07-05 12:05] LABS: Iron 62 mcg/dL (30-160); Percent Iron Saturation 13 % (15-50); Total Iron Binding Capacity 496 mcg/dL (228-428); Unsaturated Iron Binding 434 ug/dL
[2022-07-05 12:33] LABS: Folate 14.2 ng/mL (> or = 4.0); Vitamin B12 307 pg/mL (200-900)
== END 2022-07-05 10:10 | disposition home or self-care (01) ==
LOC: HO.WFDLDS 10:09
PROVIDERS: Visit Provider Hospitalist
DX: D64.9 Anemia, unspecified (principal)
CPT/HCPCS: 36415; 82607; 82746; 83540

== ENCOUNTER 2022-08-16 09:29 | Outpatient (REF) | payer OTHER, SELFPAY ==
[2022-08-16 11:30] LABS: Erythrocyte Sedimentation Rate 30 MM/HR (0-20)
[2022-08-16 13:46] LABS: C Reactive Protein 1.62 mg/dL (< or = 0.50); Rheumatoid Factor < 15.0 IU/mL (<15.0)
[2022-08-21 15:21] LABS: Anti Nuclear Antibody Screen NEGATIVE (NEGATIVE)
== END 2022-08-16 09:30 | disposition home or self-care (01) ==
LOC: HO.LAB 09:29
PROVIDERS: PCP Family Medicine; Visit Provider Internal Medicine Rheumatology
DX: M79.641 Pain in right hand (principal); M79.642 Pain in left hand; M79.7 Fibromyalgia; M25.50 Pain in unspecified joint
CPT/HCPCS: 36415; 85652; 86038; 86039; 86140; 86431

== ENCOUNTER 2022-09-13 08:02 | Outpatient (REF) | payer OTHER, SELFPAY ==
--- NOTE | ~2022-09-13 | CT_ITS ---
EXAMINATION: CT ABDOMEN AND PELVIS WITH CONTRAST CLINICAL INFORMATION: Leiomyoma of uterus. COMPARISON: None TECHNIQUE: Multidetector volumetric images were obtained from the superior aspect of the liver through the pubic symphysis following administration 85 mL of Omnipaque 350 intravenous contrast. Sagittal and coronal reformatted images were obtained on the technologist's workstation. Oral contrast: No This CT examination was performed using dose optimization techniques as appropriate, variously including the following: *Automated exposure control *Adjustment of mA and/or kV according to patient size (this includes techniques or standardized protocols for targeted exams where dose is matched to indication/reason for exam; i.e. extremities or head) *Use of iterative reconstruction technique DLP: 594 mGy-cm FINDINGS: LUNG BASES: The lung bases are clear. The heart size is normal. LIVER, GALLBLADDER, AND BILIARY TREE: The liver is normal in size, shape, and attenuation. No focal hepatic lesion or biliary ductal dilatation is present. The gallbladder is unremarkable with no evidence of radiopaque gallstones, gallbladder wall thickening, or obvious pericholecystic inflammatory changes. PANCREAS: Unremarkable. SPLEEN: Unremarkable. ADRENAL GLANDS: Unremarkable. KIDNEYS AND URETERS: The kidneys are normal in size, shape, and attenuation. No hydronephrosis, hydroureter, or calculi seen. No perinephric stranding. BLADDER: The bladder is compressed by pelvic mass. GASTROINTESTINAL TRACT: There is oral contrast opacifying the entire colon and small bowel loops which are normal caliber. Appendix is normal caliber. There is gastric sleeve surgery from previous intervention. ABDOMINAL WALL: No significant hernia is appreciated. LYMPH NODES: Normal. VASCULAR: Unremarkable. PELVIC VISCERA: The uterus is enlarged with a large heterogeneous mass extending to the level of umbilicus. It measures 15.11 x 9.2 cm x 15.0 cm wide. There is an additional smaller mass extending into the left adnexa. No free fluid seen. OSSEOUS STRUCTURES: No aggressive lytic or sclerotic process seen. There is moderate posterior spondylosis at T12/L1 disc level resulting in mild AP canal stenosis. CT/CT abdomen pelvis w IV con IMPRESSION: Enlarged uterus from a heterogeneous mass extending to the level of umbilicus. There is an additional smaller mass in the left adnexa, extension of left uterus. Mild constipation without obstruction. Evidence of previous gastric sleeve surgery. Fleischner guidelines were followed.
[2022-09-13] MEDS: iohexoL 350 MG/ML 100 ML INFUS..BTL IV (11:15)
[2022-09-13] MEDS: Barium Sulfate Oral (Vanilla) 450 ML ORAL.SUSP 900 ML PO (11:16)
[2022-09-14 08:40] LABS: Creatinine POC 0.4 mg/dL (0.5-1.4); GFR POC > 60
== END 2022-09-13 08:03 | disposition home or self-care (01) ==
LOC: HO.CT 08:02
PROVIDERS: PCP Family Medicine; Visit Provider Obstetrics & Gynecology
DX: D25.9 Leiomyoma of uterus, unspecified (principal)
CPT/HCPCS: 74177; 82565; Q9967

== ENCOUNTER → 2022-09-19 10:13 | Outpatient (BNVA) | payer OTHER, SELFPAY | PROVIDERS: PCP Family Medicine; Referring Provider Obstetrics & Gynecology; Visit Provider Internal Medicine | DX: Z01.810 Encounter for preprocedural cardiovascular examination (principal); R03.0 Elevated blood-pressure reading, without diagnosis of hypertension; E66.9 Obesity, unspecified; Z68.41 Body mass index [BMI] 40.0-44.9, adult | CPT/HCPCS: 93005 ==

== ENCOUNTER → 2022-10-05 08:20 | Outpatient (REF) | payer OTHER, SELFPAY ==
--- NOTE | 2022-10-05 08:22 | CA_ITS ---
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 The calculated ejection fraction is 59% by biplane method. - No obvious valvular pathology seen on this study. Findings Left Ventricle Normal left ventricular cavity size. The left ventricular systolic function is normal. The calculated ejection fraction is 59% by biplane method. There is no evidence of regional wall motion abnormalities. Diastolic function is normal for age. There is mild septal asymmetric hypertrophy. Right Ventricle Normal right ventricular cavity size and systolic function. Atria Both atria are normal in size. Aortic Valve There is a normal trileaflet aortic valve. There is no aortic valve stenosis. There is no aortic valve regurgitation. Mitral Valve The mitral valve appears normal. There is no mitral valve regurgitation. There is no mitral valve stenosis. Pulmonic Valve The pulmonic valve is likely normal. Tricuspid Valve Normal tricuspid valve structure. There is trace tricuspid valve regurgitation. There is no evidence of pulmonary hypertension. Great Vessels The asc aorta is normal in size. Venous The inferior vena cava is normal in size and collapses greater than 50% with inspiration. Pericardium/Pleural There is a trivial pericardial effusion. Prior Study Comparison No significant change compared to prior study dated: 04/30/2018. Recommendations, Care & Conclusions No obvious valvular pathology seen on this study. Measurements 2D Linear Measurements IVSd: 1.09 0.6-0.9/0.6-1.0 cm LVIDd: 4.10 3.9-5.3/4.2-5.9 cm LVIDd Index: 2.04 2.4-3.2/2.2-3.1 cm/m2 LVIDs: 2.49 2.0-3.6 cm LVPWd: 0.86 0.7-1.1 cm LA Diam: 3.40 2.7-3.8/3.0-4.0 cm LAIDs Index: 1.69 1.5-2.3 cm/m2 LV Mass: 158.85 67-162/88-224 g LV Mass Index: 79.03 43-95/49-115 g/m2 LVOT Diam: 2.00 3.0+(-)1.3 cm 2D Systolic Function EF 4C: 64.90 >55% EF 2C: 55.80 >55% EF BiP: 59.40 >55% Mitral Valve MV Pk E: 0.73 MV PK A: 0.36 MV Decel Time: 146.00 E/A: 2.00 E'Lateral: 15.30 E'Medial: 9.57 E/E' Med: 7.70 E/E' Lat: 4.80 PHT: 43.00 MVA PHT: 5.12 Decel Bucks: 5.02 Aortic Valve AoV Pk Tian: 1.64 AoV Mn Tian: 1.11 AoV VTI: 0.33 AoV Pk Grad: 11.00 Aov Mn Grad: 5.00 EVELIN Cont.VTI: 1.86 LVOT LVOT Pk Tian: 1.02 LVOT Mn Tian: 0.60 LVOT VTI: 0.19 LVOT Pk Grad: 4.00 LVOT Mn Grad: 2.00 LVOT Diam: 2.00 LVOT Area: 3.14 Diastolic Function MV Pk E: 0.73 MV Pk A: 0.36 E/A: 2.00 E'Medial: 9.57 E/E' Med: 7.70 E' Laterial: 15.30 E/E' Lat: 4.80 Right Ventricle TAPSE (mm): 21.70 TVS' Tian: 10.80 Tricuspid Valve TR Pk Tian: 2.25 TR Pk Grad: 20.00 RA Press: 3.00 RVSP: 23.00 Great Vessels Aorta Sinus of Valsalva: 3.08 2.0-3.5 cm Ao Asc: 2.80 2.1-3.4 cm Updated in Other Vendor System with Status of Final Roberto Jules MD electronically signed on 10/06/2022 1:19:42 PM with status of Final
== END ==
LOC: HO.CARD 08:20
PROVIDERS: Visit Provider Internal Medicine
DX: Z01.810 Encounter for preprocedural cardiovascular examination (principal)
CPT/HCPCS: 93306; Q9957

== ENCOUNTER → 2023-02-14 09:08 | Outpatient (BNVA) | payer OTHER, SELFPAY | PROVIDERS: PCP Family Medicine; Visit Provider Internal Medicine Rheumatology | DX: Z13.89 Encounter for screening for other disorder (principal) ==

== ENCOUNTER 2023-02-15 09:58 | Outpatient (REF) | payer OTHER, SELFPAY ==
--- NOTE | ~2023-02-15 | XR_ITS ---
EXAMINATION: XR SHOULDER, RIGHT CLINICAL INFORMATION: Reason for Exam M75.81 - Other shoulder lesions, right shoulder COMPARISON: None TECHNIQUE: Three views of the shoulder. FINDINGS: No acute fracture or dislocation. Moderate degenerative changes of the shoulder with loss of the acromioclavicular joint space and degenerative spurring. Soft tissues are unremarkable. XR/XR shoulder RT min 2V IMPRESSION: Moderate degenerative changes of the shoulder.
== END 2023-02-15 09:59 | disposition home or self-care (01) ==
LOC: HO.XRAY 09:58
PROVIDERS: PCP Family Medicine; Visit Provider Internal Medicine Rheumatology
DX: M75.81 Other shoulder lesions, right shoulder (principal)
CPT/HCPCS: 73030

== ENCOUNTER 2023-03-21 07:00 | Outpatient (RCR) | payer OTHER, SELFPAY ==
[2023-02-28 07:02] VITALS: BP 120/80; PULSE 74; O2SAT 100
== END 2023-12-31 12:10 | disposition home or self-care (01) ==
LOC: HO.PTWFD 07:00
PROVIDERS: PCP Family Medicine; Visit Provider Internal Medicine Rheumatology
DX: M75.81 Other shoulder lesions, right shoulder (principal)
CPT/HCPCS: 97110; 97140; 97162; 97535

== ENCOUNTER 2023-07-05 08:19 | Outpatient (REF) | payer OTHER, SELFPAY ==
--- NOTE | ~2023-07-05 | MM_ITS ---
EXAMINATION: MM SCREENING DIGITAL BREAST TOMOSYNTHESIS, BILATERAL CLINICAL INFORMATION: Screening. Asymptomatic. The patient has had a prior, bilateral breast reduction. The lifetime risk of breast cancer based on the Tyrer-Cuzick Model is 12.8%. COMPARISON: Mammography: This study is compared with prior exams dating back to 2020. TECHNIQUE: Digital breast tomosynthesis is performed in both the craniocaudal and mediolateral oblique views along with computer-aided detection (CAD). Synthesized 2D images are generated from the tomosynthesis. FINDINGS: The breasts are almost entirely fatty (ACR BI-RADS breast composition Category a). There are no significant masses, abnormal calcifications, or other abnormalities. MM/MM tomosynthesis screening BI IMPRESSION: No mammographic evidence of malignancy. ASSESSMENT: BI-RADS BI-RADS 2 - Benign Findings RECOMMENDATION: Routine annual mammography screening. 1 year F/U This examination should not preclude the clinical evaluation of a suspicious palpable abnormality. This patient's information was entered into a reminder system with a target due date for their next mammogram.
== END 2023-07-05 08:20 | disposition home or self-care (01) ==
LOC: HO.MAMMO 08:19
PROVIDERS: PCP Family Medicine; Visit Provider Family Medicine
DX: Z12.31 Encounter for screening mammogram for malignant neoplasm of breast (principal)
CPT/HCPCS: 77063; 77067

== ENCOUNTER → 2023-07-05 08:45 | Outpatient (BNV) | payer OTHER, SELFPAY | PROVIDERS: PCP Family Medicine; Visit Provider Radiology Diagnostic Radiology | DX: Z12.31 Encounter for screening mammogram for malignant neoplasm of breast (principal) | CPT/HCPCS: 77063; 77067 ==

== ENCOUNTER 2023-08-15 08:40 | Outpatient (AMB) | payer OTHER, SELFPAY ==
--- NOTE | 2023-08-15 08:52 | A.OFFVIS_ITS ---
Intake Vital Signs 08/15/23 09:02 Height 5 ft 3 in Weight 226 lb 6.636 oz BMI 40.1 BP 140/90 H Blood Pressure Location Lt brachial Position Sitting Pulse 88 Pulse Source Pulse Oximeter Temp 98.1 F Temp Source Skin Pulse Oximetry (%) 98 Oxygen Delivery Method Room Air Intake Visit Reasons: fm Intake Note: Patient here to follow up on fibromyalgia. c/o worsening morning stiffness, left knee weakness, marilin hand numbness R>L. Shank Boner Required: No Accompanied by: Self / Same As Patient Allergies Penicillins [PENICILLINS] Allergy (Unknown, Verified 08/15/23 08:52) THROAT SWELLING, urticaria, angiodema, difficult breathing pramipexole [From MIRAPEX] Allergy (Unknown, Verified 08/15/23 08:52) NAUSEA & VOMITING, DIARRHEA ropinirole [ROPINIROLE] Allergy (Unknown, Verified 08/15/23 08:52) NAUSEA & VOMITING, dizziness, weakness, anxiety Dust Mite Mixed Allergen Ext Allergy (Unknown, Uncoded 08/15/23 08:52) Unknown Pineapple Concentrate Allergy (Unknown, Uncoded 08/15/23 08:52) Unknown HPI HPI Comments History of Present Illness Details The patient returns for evaluation of her fibromyalgia. She remains on gabapentin taking 300 mg at night. She this does seem to help with her sleep. At her last visit she had some painful motion in the right shoulder that looked like rotator cuff tendinitis. She was sent for some physical therapy. She says that was helpful. She continues to do the exercises at home. Over the past month or two she has noted some right hand paresthesias. These occur almost exclusively at night and rarely during the day. 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 There has been no injury to the area. She has not seen any redness or swelling. [facility] Medical History Acanthosis nigricans Anemia Asthma Hepatic steatosis Hepatomegaly Low back pain Routine adult health maintenance Seborrheic dermatitis Uterine fibroid Vitamin D deficiency Surgical History History of hysterectomy (~10/2022) History of sleeve gastrectomy History of myomectomy History of tonsillectomy H/O bilateral breast reduction surgery Family History Father DIVYA (obstructive sleep apnea) Diabetes HTN (hypertension) Mother Osteoporosis Hypoglycemia Cataract HTN (hypertension) Thyroid disease Maternal Aunt Breast cancer Maternal Grandmother Stroke Family/Other Lupus Social History Household Members: None Housing: Apartment Are you a primary multi care technician to a significant other at home: No Do you presently have visiting nurse or other home services: No Alcohol intake: never Patient Tobacco Use Status: Never used Tobacco e-Cigarette/Vaping Use: Never Used Second Hand Smoke Exposure: No service: No Current occupational status: employed Current occupation: [employer] Current occupational exposures/hazards: No Gender identity: Female Cognitive needs: No Hearing needs: No Vision needs: No Female Reproductive History Menstrual Age of Menarche: 12 Review of Systems Const Details: Negative for appetite change, weight change, fever, chills, malaise and fatigue GI Details: Negative indigestion/heartburn, nausea, abdominal pain, bowel changes, diarrhea, constipation and bloody stool. Neuro Details: Almost nightly right hand numbness. Negative for epilepsy, palsy, stroke, changes in speech and weakness Michael/Lymph Details: Negative for excessive bruising or bleeding. Physical Exam Vital Signs: Last Vital Signs Temp 98.1 F 08/15/23 09:02 Pulse 88 08/15/23 09:02 BP 140/90 H 08/15/23 09:02 Pulse Ox 98 08/15/23 09:02 Oxygen Delivery Method Room Air 08/15/23 09:02 BMI result Body Mass Index 40.1 APPEARANCE: Patient in no acute distress EYES no redness, pupils equal and reactive to light, eyelids normal NEURO: Oriented and alert x3. No focal weakness. Reflexes symmetric. Gait normal. SKIN: No inflammatory or neoplastic lesions. Normal color and turgor JOINT EXAM: .Cervical Spine:? Mild discomfort with extremes of normal range of motion without pain; no tenderness. Thoracic Spine:? No scoliosis.? No tenderness on palpation. Lumbar Spine:.? Alignment normal.? Mild lumbar pain with flexion at 60 degrees.? Mild paraspinal muscle tenderness. Chest Wall:.? No tenderness, swelling, increased warmth or erythema. Hands:.? Right:? Slight tenderness at the 3rd and 4th PIP joints but no swelling is appreciated.? There is some slight tenderness along the 2nd flexor tendon.? No thenar atrophy or sensory loss.? Left:? Mild tenderness along the 2nd and 5th flexor tendons but no triggering.? Slight tenderness in the 2nd and 3rd PIP joints without swelling.? No thenar atrophy or sensory loss. Wrists:.? Right: Normal pain-free range of motion with some slight volar tenderness but no swelling. Negative Tinel's and Phalen signs. Left: Normal pain-free range of motion with possible slight dorsal tenderness but no swelling, increased warmth or erythema. Elbows:. Normal pain-free range of motion without tenderness, swelling, increased warmth or erythema. Shoulders:.? Right: Mild discomfort with extremes of normal range of motion. There is some minimal anterior tenderness without abductor weakness, swelling or adenopathy. There is tenderness over the shoulder area anteriorly, posteriorly and over the trapezius muscle. Left:? Full range of motion with no pain. There is no tenderness, adenopathy, weakness, swelling, increased warmth or erythema. Hips:.? Full range of motion without pain. Hip bursa:.? No tenderness. Knees:.??Right:? Slight pain with extremes of flexion extension and some minimal medial tenderness without redness or effusion.? Left:? Normal pain-free range of motion without tenderness, swelling, increased warmth or erythema.? There is no effusion or crepitation Ankles:.? Left:? Slight discomfort with extremes of motion of some mild medial and lateral tenderness but no swelling.? Right:? Normal pain-free range of motion without tenderness, swelling, increased warmth or erythema. Feet:? Normal pain-free range of motion with mild hallux valgus deformity bilaterally but no areas of tenderness, swelling, increased warmth or erythema.? Questionable sensory loss in the soles of the feet. Tender points:? Mild tenderness to digital palpation at the occiput, trapezius, second rib, lateral epicondyle, knees, greater trochanter and gluteal area bilaterally. ? ? Results Reviewed Results Reviewed: [address] [address] XRay Report Signed Patient: Marichuy Don MR#: [id number] : 1980 Acct:[id number] Age/Sex: 42 / F ADM Date: 02/15/[address]: Vikram Agosto MD Ordering Physician: Vikram Agosto MD Date of Service: 02/15/23 Procedure(s): XR shoulder RT min 2V Accession Number(s): [id number] cc: Vikram Agosto MD~ EXAMINATION: XR SHOULDER, RIGHT CLINICAL INFORMATION: Reason for Exam M75.81 - Other shoulder lesions, right shoulder COMPARISON: None TECHNIQUE: Three views of the shoulder. FINDINGS: No acute fracture or dislocation. Moderate degenerative changes of the shoulder with loss of the acromioclavicular joint space and degenerative spurring. Soft tissues are unremarkable. XR/XR shoulder RT min 2V IMPRESSION: Moderate degenerative changes of the shoulder. Dictated By: Shira Ray MD Assessment & Plan Assessment & Plan (1) Tendinitis of right rotator cuff: Code(s): M75.81 - Other shoulder lesions, right shoulder (2) Fibromyalgia: Code(s): M79.7 - Fibromyalgia (3) Numbness and tingling in right hand: Code(s): R20.0 - Anesthesia of skin; R20.2 - Paresthesia of skin Plan She has a few areas still of widespread pain and tender points consistent with fibromyalgia. There is still no sign of an active inflammatory process. The right shoulder symptoms have improved with some physical therapy. The radiograph of the shoulder was read as moderate OA but I think that is an over statement. I think she may have some rotator cuff impingement. She will continue with the home exercises. She seems to be tolerating the gabapentin at night and that helps her so it can be continued. The nocturnal paresthesias suggest carpal tunnel syndrome. Symptoms have only been there a month or two so I do not think nerve testing right now would be fruitful. I did issue her a prescription for a right wrist splint to wear nightly. If that does not improve symptoms in 6-8 weeks of regular use she could call back and we would arrange for nerve conduction studies. Otherwise a return at 6 months seems reasonable. Medications: New arm brace (Wrist Brace) use every night 1 ea 0RF R20.0 - Anesthesia of skin, R20.2 - Paresthesia of skin Refilled gabapentin (Neurontin) 300 - 600 mg (1 - 2 x 300 mg) PO BEDTIME 60 caps 5RF M79.7 - Fibromyalgia Coding Level of Care Code Est Pt Level 3 (91872) Diagnoses Tendinitis of right rotator cuff M75.81 Fibromyalgia M79.7 Numbness and tingling in right hand R20.0; R20.2
[2023-08-15 09:02] VITALS: BP 140/90; PULSE 88; TEMP 36.7; O2SAT 98; BMI 40.1
== END 2023-08-15 09:35 | disposition home or self-care (01) ==
PROVIDERS: PCP Family Medicine; Visit Provider Internal Medicine Rheumatology
DX: M75.81 Other shoulder lesions, right shoulder (principal); M79.7 Fibromyalgia; R20.0 Anesthesia of skin; R20.2 Paresthesia of skin
CPT/HCPCS: 99213

== ENCOUNTER → 2023-08-15 08:40 | Outpatient (BNVA) | payer OTHER, SELFPAY | PROVIDERS: PCP Family Medicine; Visit Provider Internal Medicine Rheumatology ==

== ENCOUNTER 2023-09-12 15:33 | Outpatient (AMB) | payer OTHER, SELFPAY ==
--- NOTE | 2023-09-12 15:46 | A.OFFPC_ITS ---
Vital Signs 09/12/23 15:47 Height 5 ft 3 in Weight 229 lb BMI 40.6 BP 122/74 Blood Pressure Location Lt brachial Position Sitting Pulse 95 Pulse Source Pulse Oximeter Pulse Oximetry (%) 96 Oxygen Delivery Method Room Air Intake Visit Reasons: Annual PE Intake Note: Patient is here for her physical today. Patient would like to talk about getting titers done. Patient would like refills on Omeprazole, HCTZ, and Flonase. Allergies Penicillins [PENICILLINS] Allergy (Unknown, Verified 09/12/23 15:52) THROAT SWELLING, urticaria, angiodema, difficult breathing pramipexole [From MIRAPEX] Allergy (Unknown, Verified 09/12/23 15:52) NAUSEA & VOMITING, DIARRHEA ropinirole [ROPINIROLE] Allergy (Unknown, Verified 09/12/23 15:52) NAUSEA & VOMITING, dizziness, weakness, anxiety Dust Mite Mixed Allergen Ext Allergy (Unknown, Uncoded 09/12/23 15:52) Unknown Pineapple Concentrate Allergy (Unknown, Uncoded 09/12/23 15:52) Unknown Medication List - Last Reconciled 09/12/23 by Delfin Fuchs MD albuterol sulfate 90 mcg/actuation 1 inh inhalation NEEDED PRN arm brace (Wrist Brace) use every night betamethasone, augmented 0.05 % 1 appl topical BID cholecalciferol (vitamin D3) (D3-5000) 125 mcg PO DAILY ciclopirox 1% 1 ea topical DAILY ferrous gluconate 324 mg PO TID fluticasone propionate 50 mcg/actuation 1 spray intranasal Q12H gabapentin (Neurontin) 300 - 600 mg (1 - 2 x 300 mg) PO BEDTIME hydrochlorothiazide 12.5 mg PO QAM 30 days omeprazole 20 mg PO DAILY tretinoin 0.025% (Retin-A) 1 appl topical DAILY Tobacco use date assessed: 09/12/23 HPI Annual PE HPI Details 43 y/o female presents for a CPE with f/ u labs and health maintenance. No recent labs to review. PFS Medical History Acanthosis nigricans Anemia Asthma Hepatic steatosis Hepatomegaly Low back pain Routine adult health maintenance Seborrheic dermatitis Uterine fibroid Vitamin D deficiency Surgical History History of hysterectomy (~10/2022) History of sleeve gastrectomy History of myomectomy History of tonsillectomy H/O bilateral breast reduction surgery Family History Father DIVYA (obstructive sleep apnea) Diabetes HTN (hypertension) Mother Osteoporosis Hypoglycemia Cataract HTN (hypertension) Thyroid disease Maternal Aunt Breast cancer Maternal Grandmother Stroke Family/Other Lupus Social History Household Members: None Housing: Apartment Are you a primary home health aide caregiver to a significant other at home: No Do you presently have visiting nurse or other home services: No Alcohol intake: never Patient Tobacco Use Status: Never used Tobacco e-Cigarette/Vaping Use: Never Used Second Hand Smoke Exposure: No service: No Current occupational status: employed 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 1. Little interest or pleasure in doing things: not at all 2. Feeling down, depressed, or hopeless: not at all 3. Trouble falling or staying asleep, or sleeping too much: not at all 4. Feeling tired or having little energy: several days 5. Poor appetite or overeating: not at all 6. Feeling bad about yourself - or that you are a failure or have let yourself or your family down: not at all 7. Trouble concentrating on things, such as reading the newspaper or watching television: not at all 8. Moving or speaking so slowly that other people could have noticed. Or the opposite - being so fidgety or restless that you have been moving around a lot more than usual: not at all 9. Thoughts that you would be better off or of hurting yourself in some way: not at all Total score: 1 Source: Developed by Drs. Dhaval Ely, Melanie Mckeon, Donny Macedo and colleagues, with an educational jose l from [employer]. Thrive Questionnaire Date Thrive assessed: 06/07/22 BEL-7 AMB Questionnaire BEL-7 Date BEL - 7 assessed: 09/12/23 Feeling nervous, anxious, or on edge: 0 = Not at all Not being able to stop or control worryin = Not at all Worrying too much about different things: 0 = Not at all Trouble relaxin = Not at all Being so restless that it is hard to sit still: 0 = Not at all Becoming easily annoyed or irritable: 0 = Not at all Feeling afraid as if something awful might happen: 0 = Not at all Total BEL-7 score (0-4 normal; 5-9 mild; 10-14 moderate; 15-21 severe): 0 Source: Developed by Drs. Dhaval Ely, Melanie Mckeon, Donny Macedo and colleagues, with an educational jose l from [employer]. Review of Systems Const Denies chills, Denies fatigue, Denies fever(s), Denies headache(s) and Denies weakness Eyes Denies change in vision ENT Denies dizziness, Denies headache(s), Denies hearing loss, Denies nasal congestion, Denies sinus pain, Denies sinus pressure and Denies sore throat Card Denies chest pain, Denies lightheadedness, Denies dyspnea and Denies other (palpitations) Resp Denies cough, Denies dyspnea and Denies wheezing GI Denies abdominal pain, Denies melena, Denies hematochezia, Denies change in bowel habits, Denies dyspepsia and Denies nausea Denies hematuria and Denies dysuria Musc Denies abnormal gait, Denies myalgias, Denies arthralgias, Denies numbness and Denies tingling Skin/Breast Denies rash, Denies unusual bruising and Denies wounds Neuro Denies abnormal gait, Denies dizziness, Denies headache(s), Denies memory loss, Denies numbness, Denies Sensory deficit (Neuro), Denies tingling and Denies weakness Psych Denies anxiety, Denies depression and Denies memory loss Endo Denies cold intolerance, Denies fatigue, Denies heat intolerance, Denies polydipsia and Denies polyuria Michael/Lymph Denies easy bleeding and Denies easy bruising Aller/Immun Denies wheezing Physical exam (Primary Care) Vital Signs: Last Vital Signs Pulse 95 09/12/23 15:47 BP 122/74 09/12/23 15:47 Pulse Ox 96 09/12/23 15:47 Oxygen Delivery Method Room Air 09/12/23 15:47 BMI result Body Mass Index 40.6 Tobacco/Smoking Status: Tobacco use Status Tobacco use date assessed 09/12/23 09/12/23 16:03 Patient Tobacco Use Status Never used Tobacco 09/12/23 15:52 e-Cigarette/Vaping Use Never Used 09/12/23 15:52 PHQ-9: PHQ-9 Score PHQ-9: Total score 1 09/12/23 16:20 Thrive Assessment: Date of Thrive Assessment Date Thrive assessed 06/07/22 09/12/23 15:52 Const General: no acute distress, well developed, alert and awake Nutritional Appearance: well nourished Orientation/consciousness: patient oriented x3 HENMT Head: Yes normocephalic and Yes atraumatic Ears: hearing grossly normal bilaterally and TM's normal bilaterally General nose exam: Normal external nose present and Normal nares present Mouth: Normal oral and palatal mucosa present and moist mucous membranes Teeth and gingiva: dentition normal Throat: Yes posterior oropharynx normal Eyes General: appearance normal, both eyes and all related structures Pupils: Equal, round and reactive pupils present and Pupil accommodation reflex normal EOM: EOMs intact bilaterally Neck Neck: Yes normal visual inspection, Yes no lymphadenopathy and Yes trachea midline Thyroid: Thyroid normal Carotids: no bruits Lymphatic: no lymphadenopathy noted Chest Chest palpation & inspection: normal inspection of the chest Resp Effort & Inspection: normal respiratory effort Auscultation: clear to auscultation bilaterally Cardio Rate: regular rate Rhythm: regular rhythm Heart sounds: S1 normal heart sound present, S2 normal heart sound present, no gallops, no murmurs and no rubs Bruits: no abdominal aortic bruits and no carotid bruits GI Palpation (GI): No Abdominal aortic bruit present, Soft to palpation, nontender, No hepatosplenomegaly present and No Rebound tenderness present Auscultation: normal bowel sounds General: Yes no CVA tenderness Back/Spine/Pelvis Back: no CVA tenderness Cervical Spine: cervical ROM normal and No Cervical spine tenderness Thoracic/Lumbar Spine: thoraco-lumbar ROM normal, No pain with thoraco-lumbar ROM, No thoracic spinal tenderness and No lumbar spinal tenderness Skin Lesions: no lesions Rashes: no rashes Trauma: no lacerations or abrasions Wounds: no wounds Nails: normal Neuro General: patient oriented x3 Cranial nerves: Yes Equal, round and reactive pupils present Cognition (Neuro): normal cognition Gait exam (Neuro): Normal gait present Motor exam (neuro): 5/5 motor strength present throughout Sensory Exam: No Sensory deficit (Neuro) Deep tendon reflexes (DTR's): Right patellar reflex intensity grade: 2+ and Left patellar reflex intensity grade: 2+ Extrem General: Yes normal to inspection and No edema Psych Appearance: grossly normal Affect: normal affect Attitude: cooperative Thought process: Normal thought process present Assessment and Plan Assessment & Plan (1) Adult general medical exam: Code(s): Z00.00 - Encounter for general adult medical examination without abnormal findings Plan: 43-year-old?female?presents?for?complete?physical?exam (2) Breast cancer screening by mammogram: Code(s): Z12.31 - Encounter for screening mammogram for malignant neoplasm of breast Plan: Mammogram?showed?no?evidence?of?malignancy?at?most?recent?tej ck?and?she?is?up-to-date Continue?annual?screening (3) Immunization counseling: Code(s): Z71.85 - Encounter for immunization safety counseling Plan: Patient?requests?titers?for?measles?mumps?rubella?and?varicella?as?well?as?tuber culosis?for?employment?testing (4) Numbness and tingling in right hand: Code(s): R20.0 - Anesthesia of skin; R20.2 - Paresthesia of skin Plan: Possible ?carpal?tunnel?and?script?was?given?to?her?by?Rheumatology?for?a?wrist?brace.??S he?has?not?picked?this?up?yet?but?plans?to?do?so. Can?wear?at?work?and?loosely?at?bedtime (5) GERD (gastroesophageal reflux disease): Code(s): K21.9 - Gastro-esophageal reflux disease without esophagitis Plan: Significant?infrequent?GERD. Refilled?her?omeprazole If?this?does?not?control?her?symptoms?she?will?let?me?know.??Would?temporarily?i ncrease?omeprazole?and?refer?her?to?GI Orders: Orders Comprehensive [place]. Panel Fast Today Z00.00 - Encounter for general adult medical examination without abnormal findings Microalbumin, Random (w Creat) Today I10 - Essential (primary) hypertension TSH reflex Free T4 Today Z00.00 - Encounter for general adult medical examination without abnormal findings UA and rflx microscopic Today Z00.00 - Encounter for general adult medical examination without abnormal findings T Spot TB Today Z71.85 - Encounter for immunization safety counseling Lipid Panel Today Z00.00 - Encounter for general adult medical examination without abnormal findings Varicella IgG Antibody Today Z71. - Encounter for immunization safety counseling MMR IgG Measles Mumps Rubella Today Z71. - Encounter for immunization safety counseling Medications: Refilled omeprazole 20 mg PO DAILY 30 caps 3RF fluticasone propionate 50 mcg/actuation 1 spray intranasal Q12H 16 grams 5RF hydrochlorothiazide 12.5 mg PO QAM 30 tabs 2RF 30 days Coding Level of Care Code Est Pt Level 3 (16867) Est Pt Prev Care 40-64y(95483) Diagnoses Adult general medical exam Z00.00 Breast cancer screening by mammogram Z12.31 Immunization counseling Z71. Numbness and tingling in right hand R20.0; R20.2 GERD (gastroesophageal reflux disease) K21.9
[2023-09-12 15:47] VITALS: BP 122/74; PULSE 95; O2SAT 96; BMI 40.6
== END 2023-09-12 16:39 | disposition home or self-care (01) ==
PROVIDERS: PCP Family Medicine; Visit Provider Family Medicine
DX: Z00.00 Encounter for general adult medical examination without abnormal findings (principal); Z12.31 Encounter for screening mammogram for malignant neoplasm of breast; Z71.85 Encounter for immunization safety counseling; R20.0 Anesthesia of skin; R20.2 Paresthesia of skin; K21.9 Gastro-esophageal reflux disease without esophagitis
CPT/HCPCS: 99396

== ENCOUNTER 2023-09-13 07:17 | Outpatient (REF) | payer OTHER, SELFPAY ==
[2023-09-13 11:38] LABS: MANUAL DIFF FLAG NO
[2023-09-13 11:50] LABS: Appearance Urine Turbid; Color Urine Yellow; Glucose Urine UA Negative (Negative); Leukocyte Esterase Urine Negative (Negative); Nitrite Urine Negative (Negative); PH 5.5 (5.0-9.0); Specific Gravity - Urine >= 1.030 (1.005-1.025); Urine Blood Negative (Negative); Urine Ketones Negative (Negative); Urine Protein Negative (Neg-Trace)
[2023-09-13 12:06] LABS: Basophils Absolute Auto 0.1 X10*3/uL (0.0-0.2); Eosinophils Absolute Auto 0.1 X10*3/uL (0.0-0.4); Eosinophils Percent Auto 1.4 % (0-4); Hematocrit 36.6 % (37.0-47.0); Hemoglobin 11.6 g/dl (12.0-16.0); Imm Gran Abs Auto 0.01 X10*3/uL (0.00-0.03); Imm Gran Pct Auto 0.2 % (0.0-0.4); Lymphocytes Absolute Auto 1.9 X10*3/uL (1.2-4.9); Lymphocytes Percent Auto 37.9 % (20-40); Mean Corpuscular HGB Conc 31.7 g/dl (31.0-35.0); Mean Corpuscular Hemoglobin 28.9 pg (27.0-33.0); Mean Platelet Volume 11.4 fL (9.4-12.3); Monocytes Absolute Auto 0.3 X10*3/uL (0.1-1.2); Neutrophils Absolute Auto 2.6 x10*3/uL (2.0-8.3); Neutrophils Percent Auto 52.5 % (45-73); Platelet Count 260 X10*3/uL (160-400); Red Blood Count 4.02 X10*6/uL (4.20-5.50); Red Cell Distribution Width 14.1 % (11.0-16.0); White Blood Count 4.9 X10*3/uL (4.8-10.8)
[2023-09-13 13:09] LABS: Alanine Aminotransferase 13 U/L (0-31); Albumin Level 4.2 g/dL (3.5-5.0); Alkaline Phosphatase 101 U/L (39-117); Anion Gap 15 (12-20); Aspartate Amino Transferase 14 U/L (5-31); Bilirubin Total 0.4 mg/dL (0.0-1.0); Blood Urea Nitrogen 12 mg/dL (9-16); Calcium 9.8 mg/dL (8.4-10.2); Carbon Dioxide 23 mmol/L (22-29); Chloride 106 mmol/L (96-108); Cholesterol 176 mg/dL (<200); Estimated Glomerular Filt Rate > 60; Glucose Fasting 90 mg/dL (60-99); HDL Cholesterol 56 mg/dL (>40); Iron 75 mcg/dL (30-160); LDL Cholesterol Calculated 97 mg/dL (<100); Percent Iron Saturation 21 % (15-50); Potassium 3.9 mmol/L (3.3-5.1); Sodium 140 mmol/L (135-145); TSH reflex Free T4 2.99 uIU/mL (0.32-4.0); Total Iron Binding Capacity 365 mcg/dL (228-428); Total Protein 7.6 g/dL (6.5-8.0); Triglycerides 118 mg/dL (<150); Unsaturated Iron Binding 290 ug/dL
[2023-09-13 13:13] LABS: Creatinine Urine 218.32 mg/dL; Microalbum/Creatinine Ratio Ur 6.4 ug/mg cr (<30)
[2023-09-16 01:14] LABS: TS Negative Control Passed; TS Panel A 0; TS Panel B 0; TS Positive Control Passed; TSpotTB Negative (Negative)
[2023-09-16 19:18] LABS: Mumps Virus IgG Antibody <9.00 AU/mL; Rubella IgG Antibody 5.47 Index
== END 2023-09-13 07:18 | disposition home or self-care (01) ==
LOC: HO.WFDLDS 07:17
PROVIDERS: Visit Provider Family Medicine
DX: Z00.00 Encounter for general adult medical examination without abnormal findings (principal); I10 Essential (primary) hypertension; Z71.85 Encounter for immunization safety counseling; D50.9 Iron deficiency anemia, unspecified
CPT/HCPCS: 36415; 80053; 80061; 81003; 82043; 82570; 83540; 84443; 85025; 86481; 86735; 86762; 86765; 86787

== ENCOUNTER 2023-10-10 13:45 | Outpatient (AMB) | payer OTHER, SELFPAY ==
--- NOTE | 2023-10-10 13:39 | MHC.PC.OV ---
Intake Visit Reasons: f/u CPE-labs Intake Note: Patient calling to follow up on labs. to follow up on her labs. Allergies Penicillins [PENICILLINS] Allergy (Unknown, Verified 09/12/23 15:52) THROAT SWELLING, urticaria, angiodema, difficult breathing pramipexole [From MIRAPEX] Allergy (Unknown, Verified 09/12/23 15:52) NAUSEA & VOMITING, DIARRHEA ropinirole [ROPINIROLE] Allergy (Unknown, Verified 09/12/23 15:52) NAUSEA & VOMITING, dizziness, weakness, anxiety Dust Mite Mixed Allergen Ext Allergy (Unknown, Uncoded 09/12/23 15:52) Unknown Pineapple Concentrate Allergy (Unknown, Uncoded 09/12/23 15:52) Unknown Medication List - Last Reconciled 10/10/23 by Delfin Fuchs MD albuterol sulfate 90 mcg/actuation 1 inh inhalation NEEDED PRN arm brace (Wrist Brace) use every night betamethasone, augmented 0.05 % 1 appl topical BID cholecalciferol (vitamin D3) (D3-5000) 125 mcg PO DAILY ciclopirox 1% 1 ea topical DAILY ferrous gluconate 324 mg PO TID fluticasone propionate 50 mcg/actuation 1 spray intranasal Q12H gabapentin (Neurontin) 300 - 600 mg (1 - 2 x 300 mg) PO BEDTIME hydrochlorothiazide 12.5 mg PO QAM 30 days omeprazole 20 mg PO DAILY tretinoin 0.025% (Retin-A) 1 appl topical DAILY [wrist splint wear nightly and as much as possible throughout the day NS] Tobacco use date assessed: 10/10/23 HPI f/u CPE-labs HPI Details 43 y/o female presents to f/u CPE-labs via telemedicine. Labs were drawn 09/13/23. Reviewed labs with pt. Mild anemia and has had anemia before. Triglycerides 118. TC 176. LDL 97. HDL 56. Hx of hysterectomy. PFS Medical History Acanthosis nigricans Hepatomegaly Hepatic steatosis Low back pain Vitamin D deficiency Seborrheic dermatitis Asthma Uterine fibroid Anemia Routine adult health maintenance Surgical History History of hysterectomy (~10/2022) History of sleeve gastrectomy History of myomectomy History of tonsillectomy H/O bilateral breast reduction surgery Family History Father DIVYA (obstructive sleep apnea) Diabetes HTN (hypertension) Mother Osteoporosis Hypoglycemia Cataract HTN (hypertension) Thyroid disease Maternal Aunt Breast cancer Maternal Grandmother Stroke Family/Other Lupus Social History Household Members: None Housing: Apartment Are you a primary childcare center administrator to a significant other at home: No Do you presently have visiting nurse or other home services: No Alcohol intake: never Patient Tobacco Use Status: Never used Tobacco e-Cigarette/Vaping Use: Never Used Second Hand Smoke Exposure: No service: No Current occupational status: employed 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 Dhaval Ely, Melanie Mckeon, Donny Macedo and colleagues, with an educational jose l from [employer]. Review of Systems Const Denies chills, Denies fatigue, Denies fever(s), Denies headache(s) and Denies weakness ENT Denies dizziness and Denies headache(s) Card Denies dyspnea Resp Denies cough, Denies dyspnea, Denies wheezing and Denies other (shortness of breath) Musc Denies numbness and Denies tingling Neuro Denies dizziness, Denies headache(s), Denies numbness, Denies tingling and Denies weakness Psych Denies anxiety and Denies depression Endo Denies fatigue Aller/Immun Denies wheezing Physical exam (Primary Care) Tobacco/Smoking Status: Tobacco use Status Tobacco use date assessed 10/10/23 10/10/23 13:44 Patient Tobacco Use Status Never used Tobacco 10/10/23 13:44 e-Cigarette/Vaping Use Never Used 10/10/23 13:44 Thrive Assessment: Date of Thrive Assessment Date Thrive assessed 06/07/22 10/10/23 13:44 Telehealth Telehealth Location of provider rendering services: practice address Location of patient: address on file Patient Identification confirmed using: Name, : Yes Telehealth method: voice only Patient verbally consented to treatment: Yes Patient verbally consented to billing insurance company: Yes Patient informed of any privacy concerns related to visit: Yes Minutes spent on Phone/Video with Pt.: 7 Assessment and Plan Assessment & Plan (1) Mild anemia: Code(s): D64.9 - Anemia, unspecified Plan: Mild?anemia.??She?is?followed?by?Hematology-Oncology Continue?iron Follow-up?with?Heme-Onc?as?recommended (2) Encounter for counseling regarding immunization: Code(s): Z71.85 - Encounter for immunization safety counseling Plan: Patient?shows?immunity?to?measles?and?rubella?but?not?mumps Advise?she?gets?vaccine?repeated?at?her?pharmacy?and?we?can?check?for?immunity?in?a?couple?of?months Coding Level of Care Code Tele Est Pt Level 2 (50349) Diagnoses Mild anemia D64.9 Encounter for counseling regarding immunization Z71.85
== END 2023-10-10 14:00 ==
LOC: HO.HMGFM 13:45
PROVIDERS: PCP Family Medicine; Visit Provider Family Medicine
DX: D64.9 Anemia, unspecified (principal); Z71.85 Encounter for immunization safety counseling
CPT/HCPCS: 99212

== ENCOUNTER 2024-02-13 09:26 | Outpatient (AMB) | payer OTHER, SELFPAY ==
--- NOTE | 2024-02-13 09:32 | MHC.PC.OV ---
Vital Signs 02/13/24 09:35 Height 5 ft 3 in Weight 233 lb 4 oz BMI 41.3 BP 140/98 H Blood Pressure Location Rt brachial Position Sitting Pulse 91 Pulse Source Pulse Oximeter Pulse Oximetry (%) 97 Oxygen Delivery Method Room Air Intake Visit Reasons: f/u hypertension Intake Note: Pt presents to the office today for a follow up for hypertension. Pt states she is feeling well but states she has been having issues with asthma and fatigue but she states she thinks her asthma was caused by a person on the first floor of her apartment smoking. Allergies Penicillins [PENICILLINS] Allergy (Unknown, Verified 02/13/24 09:37) THROAT SWELLING, urticaria, angiodema, difficult breathing pramipexole [From MIRAPEX] Allergy (Unknown, Verified 02/13/24 09:37) NAUSEA & VOMITING, DIARRHEA ropinirole [ROPINIROLE] Allergy (Unknown, Verified 02/13/24 09:37) NAUSEA & VOMITING, dizziness, weakness, anxiety Dust Mite Mixed Allergen Ext Allergy (Unknown, Uncoded 02/13/24 09:37) Unknown Pineapple Concentrate Allergy (Unknown, Uncoded 02/13/24 09:37) Unknown Tobacco use date assessed: 02/13/24 Dental Screening Dental Screen Date: 02/13/24 Did you have a dental visit in the last 12 months?: Yes Did you have a dental problem in the last 6 months where you did not have access to dental care?: No Was dental information given to patient?: Patient has dentist HPI f/u hypertension HPI Details 43 y/o female presents to f/u hypertension. Blood pressure today 140/98. She is on hydrochlorothiazide 12.5mg. Pt reports RLQ abd. pain that started about a month ago. PFSH Medical History Acanthosis nigricans Hepatomegaly Hepatic steatosis Low back pain Vitamin D deficiency Seborrheic dermatitis Asthma Uterine fibroid Anemia Routine adult health maintenance Surgical History History of hysterectomy (~10/2022) History of sleeve gastrectomy History of myomectomy History of tonsillectomy H/O bilateral breast reduction surgery Family History (Updated 02/13/24 @ 09:39 by Ninoska Dewitt MA) Father DIVYA (obstructive sleep apnea) Diabetes HTN (hypertension) Mother Osteoporosis Hypoglycemia Cataract HTN (hypertension) Thyroid disease Maternal Aunt Breast cancer Maternal Grandmother Stroke Family/Other Lupus Other Mental health disorder Social History Household Members: None Housing: Apartment Are you a primary managed care analyst to a significant other at home: No Do you presently have visiting nurse or other home services: No Alcohol intake: never Patient Tobacco Use Status: Never used Tobacco e-Cigarette/Vaping Use: Never Used Second Hand Smoke Exposure: No service: No Current occupational status: employed 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 1. Little interest or pleasure in doing things: not at all 2. Feeling down, depressed, or hopeless: not at all 3. Trouble falling or staying asleep, or sleeping too much: not at all 4. Feeling tired or having little energy: several days 5. Poor appetite or overeating: not at all 6. Feeling bad about yourself - or that you are a failure or have let yourself or your family down: not at all 7. Trouble concentrating on things, such as reading the newspaper or watching television: not at all 8. Moving or speaking so slowly that other people could have noticed. Or the opposite - being so fidgety or restless that you have been moving around a lot more than usual: not at all 9. Thoughts that you would be better off or of hurting yourself in some way: not at all Total score: 1 Depression Screening Interpretation: Negative Depression Screening Done: Yes Source: Developed by Drs. Dhaval Ely, Melanie Mckeon, Donny Macedo and colleagues, with an educational jose l from [employer] Thrive Questionnaire Date Thrive assessed: 02/13/24 I am a: Patient What is your living situation today?: I have a steady place to live Within the past 12 months, did the food you bought not last and you didn't have the money to get more?: Never true Within the past 12 months, did you worry whether your food would run out before you got money to buy more?: Never true Currently or been in a relationship where the following occur: no concerns reported THRIVE Score: 0 AUDIT C Alcohol Use Questionnaire (AUDIT-C) 1. How often do you have a drink containing alcohol?: Never 3. How often do you have six or more drinks on one occasion?: Never Total Score: 0 BEL-7 AMB Questionnaire BEL-7 Date BEL - 7 assessed: 09/12/23 Feeling nervous, anxious, or on edge: 0 = Not at all Not being able to stop or control worryin = Not at all Worrying too much about different things: 0 = Not at all Trouble relaxin = Not at all Being so restless that it is hard to sit still: 0 = Not at all Becoming easily annoyed or irritable: 0 = Not at all Feeling afraid as if something awful might happen: 0 = Not at all Total BEL-7 score (0-4 normal; 5-9 mild; 10-14 moderate; 15-21 severe): 0 Source: Developed by Drs. Dhaval Ely, Melanie Mckeon, Donny Macedo and colleagues, with an educational jose l from [employer] ACT Questionnaire In the past 4 weeks, how much of the time did your asthma keep you from getting as much done at work, school or at home?: Some of the time During the past 4 weeks, how often have you had shortness of breath?: More than once a day During the past 4 weeks, how often did your asthma symptoms wake you up at night or earlier than usual in the morning?: 4 or more nights a week During the past 4 weeks, how often have you had to use your rescue inhaler or nebulizer medication?: More than 3 times per day How would you rate your asthma control during the past 4 weeks?: Poorly controlled ACT Interpretation: Positive Score: 8 Review of Systems Const Denies chills, Denies fatigue, Denies fever(s), Denies headache(s) and Denies weakness ENT Denies dizziness and Denies headache(s) Card Denies dyspnea Resp Denies cough, Denies dyspnea, Denies wheezing and Denies other (shortness of breath) Musc Denies numbness and Denies tingling Neuro Denies dizziness, Denies headache(s), Denies numbness, Denies tingling and Denies weakness Psych Denies anxiety and Denies depression Endo Denies fatigue Aller/Immun Denies wheezing Physical exam (Primary Care) Vital Signs: Last Vital Signs Pulse 91 02/13/24 09:35 BP 140/98 H 02/13/24 09:35 Pulse Ox 97 02/13/24 09:35 Oxygen Delivery Method Room Air 02/13/24 09:35 BMI result Body Mass Index 41.3 Tobacco/Smoking Status: Tobacco use Status Tobacco use date assessed 02/13/24 02/13/24 09:43 Patient Tobacco Use Status Never used Tobacco 02/13/24 09:33 e-Cigarette/Vaping Use Never Used 02/13/24 09:33 PHQ-9: PHQ-9 Score PHQ-9: Total score 1 02/13/24 10:09 Depression Screening Interpretation: Negative Thrive Assessment: Date of Thrive Assessment Date Thrive assessed 02/13/24 02/13/24 09:43 Currently or been in a relationship where the following occur: no concerns reported Const General: well developed; No acute distress Nutritional Appearance: well nourished and obese morbidly obese Orientation/consciousness: patient oriented x3 [facility] Head: Yes normocephalic and Yes atraumatic Eyes General: appearance normal, both eyes and all related structures Pupils: Equal, round and reactive pupils present EOM: EOMs intact bilaterally Resp Effort & Inspection: normal respiratory effort Neuro General: patient oriented x3 and gait normal Cranial nerves: Yes Equal, round and reactive pupils present Psych Affect: normal affect Assessment and Plan Assessment & Plan (1) Hypertension: Code(s): I10 - Essential (primary) hypertension Plan: Blood?pressure?is?high?and?has?been?high?3?out?of?the?last?4?times?she?has?been?here.??Goal?is?less?than?140/90 Will?add?lisinopril?as?combo?with?her?hydrochlorothiazide (2) Abdominal pain: Code(s): R10.9 - Unspecified abdominal pain Plan: Abdominal?pain?and?right?lower?quadrant?pain?which?has?been?intermittent?x1?month. Timing?not?consistent?with?appendicitis.??No?significant?appetite?suppression Patient?is?only?drinking?30-40?oz?of?water?per?day. Check?ultrasound Increase?hydration?to?at?least?64?oz?per?day (3) Right lower quadrant pain: Code(s): R10.31 - Right lower quadrant pain Plan: As?above (4) Encounter for counseling regarding immunization: Code(s): Z71.85 - Encounter for immunization safety counseling Plan: Titers?showed?she?is?no?longer?immune?to?mumps.??She?should?receive?MMR?and?we?can?repeat?titers?at?next?visit?if?she?has?had this?done Orders: Orders US pelvic and transvaginal Today R10.31 - Right lower quadrant pain, R10.9 - Unspecified abdominal pain Medications: New lisinopril-hydrochlorothiazide 10-12.5 mg 1 tab PO DAILY 30 tabs 3RF 30 days Discontinued hydrochlorothiazide Discontinued Reason: Doctor's Order 12.5 mg PO QAM 30 tabs 2RF 30 days Coding Level of Care Code Est Pt Level 4 (66565) Diagnoses Hypertension I10 Abdominal pain R10.9 Right lower quadrant pain R10.31 Encounter for counseling regarding immunization Z71.85
[2024-02-13 09:35] VITALS: BP 140/98; PULSE 91; O2SAT 97; BMI 41.3
== END 2024-02-13 10:21 | disposition home or self-care (01) ==
PROVIDERS: PCP Family Medicine; Visit Provider Family Medicine
DX: I10 Essential (primary) hypertension (principal); R10.9 Unspecified abdominal pain; R10.31 Right lower quadrant pain; Z71.85 Encounter for immunization safety counseling
CPT/HCPCS: 99214

== ENCOUNTER 2024-02-21 14:12 | Outpatient (AMB) | payer OTHER, SELFPAY ==
--- NOTE | 2024-02-21 14:14 | AM.OFFVISNUR ---
Intake Intake Visit Reasons: MMR Vaccine Allergies Penicillins [PENICILLINS] Allergy (Unknown, Verified 02/21/24 11:13) THROAT SWELLING, urticaria, angiodema, difficult breathing pramipexole [From MIRAPEX] Allergy (Unknown, Verified 02/21/24 11:13) NAUSEA & VOMITING, DIARRHEA ropinirole [ROPINIROLE] Allergy (Unknown, Verified 02/21/24 11:13) NAUSEA & VOMITING, dizziness, weakness, anxiety Dust Mite Mixed Allergen Ext Allergy (Unknown, Uncoded 02/21/24 11:13) Unknown Pineapple Concentrate Allergy (Unknown, Uncoded 02/21/24 11:13) Unknown Immunizations M-M-R II (PF) 1,000-12,500 TCID50/0.5 mL subcutaneous solution Performing Provider: Delfin Fuchs MD [facility] Administered by: Sylvia Pimentel CMA on 02/21/24 14:18 Dose Route Admin Location Dispensed Lot Number Expiration Date NDC Mopper 0.5 mL subcut Left Arm 0.5 mL [id number] 02/12/25 3736-1113-40 [employer] & D VIS Given Date VIS Provided VIS Publication Date 02/21/24 Single Vaccine 21 Eligibility Eligibility Date Funding Source Not [facility] Eligible 02/21/24 Private Coding Assessment & Plan Assessment & Plan Orders: Orders MMR Immunization Today Z23 - Encounter for immunization
== END 2024-02-21 14:25 | disposition home or self-care (01) ==
PROVIDERS: PCP Family Medicine; Visit Provider Family Medicine
DX: Z23 Encounter for immunization (principal)
CPT/HCPCS: 90471; 90707

== ENCOUNTER 2024-02-27 11:47 | Outpatient (REF) | payer OTHER, SELFPAY ==
[2024-02-27 14:48] LABS: MANUAL DIFF FLAG NO
[2024-02-27 15:13] LABS: Basophils Percent Auto 0.5 % (0-2); Eosinophils Percent Auto 0.5 % (0-4); Hematocrit 38.7 % (37.0-47.0); Hemoglobin 12.4 g/dl (12.0-16.0); Imm Gran Abs Auto 0.01 X10*3/uL (0.00-0.03); Imm Gran Pct Auto 0.2 % (0.0-0.4); Lymphocytes Absolute Auto 1.9 X10*3/uL (1.2-4.9); Lymphocytes Percent Auto 32.4 % (20-40); Mean Corpuscular Hemoglobin 29.2 pg (27.0-33.0); Mean Corpuscular Volume 91.1 fL (80.0-98.0); Mean Platelet Volume 11.4 fL (9.4-12.3); Monocytes Absolute Auto 0.4 X10*3/uL (0.1-1.2); Monocytes Percent Auto 6.6 % (2-11); Neutrophils Absolute Auto 3.5 x10*3/uL (2.0-8.3); Neutrophils Percent Auto 59.8 % (45-73); Platelet Count 293 X10*3/uL (160-400); Red Blood Count 4.25 X10*6/uL (4.20-5.50); Red Cell Distribution Width 13.5 % (11.0-16.0); White Blood Count 5.8 X10*3/uL (4.8-10.8)
[2024-02-27 15:54] LABS: Erythrocyte Sedimentation Rate 25 MM/HR (0-20)
[2024-02-27 15:57] LABS: Alanine Aminotransferase 14 U/L (0-31); Albumin Level 4.4 g/dL (3.5-5.0); Alkaline Phosphatase 111 U/L (39-117); Anion Gap 11 (12-20); Aspartate Amino Transferase 12 U/L (5-31); Bilirubin Total 0.2 mg/dL (0.0-1.0); Blood Urea Nitrogen 16 mg/dL (9-16); C Reactive Protein 1.25 mg/dL (< or = 0.50); Calcium 10.4 mg/dL (8.4-10.2); Carbon Dioxide 29 mmol/L (22-29); Chloride 104 mmol/L (96-108); Estimated Glomerular Filt Rate > 60; Glucose Random 97 mg/dL (60-115); Potassium 4.1 mmol/L (3.3-5.1); Sodium 140 mmol/L (135-145); Total Protein 8.1 g/dL (6.5-8.0); Uric Acid 6.6 mg/dL (2.4-5.7)
[2024-02-28 15:38] LABS: Cyclic Citrullinated Peptide <16 UNITS
[2024-02-28 20:44] LABS: IgA 247 mg/dL (47-310); IgG 1385 mg/dL (600-1640); IgM 115 mg/dL (50-300)
[2024-02-28 22:23] LABS: Prot Elec - Albumin 4.4 g/dL (3.8-4.8); Prot Elec - Alpha1 0.3 g/dL (0.2-0.3); Prot Elec - Alpha2 0.8 g/dL (0.5-0.9); Prot Elec - Beta 1 0.6 g/dL (0.4-0.6); Prot Elec - Beta 2 0.5 g/dL (0.2-0.5); Prot Elec - Gamma 1.3 g/dL (0.8-1.7)
== END 2024-02-27 11:48 | disposition home or self-care (01) ==
LOC: HO.LAB 11:47
PROVIDERS: PCP Family Medicine; Visit Provider Nurse Practitioner Family
DX: M75.81 Other shoulder lesions, right shoulder (principal); M25.50 Pain in unspecified joint; M79.7 Fibromyalgia; R20.0 Anesthesia of skin; R20.2 Paresthesia of skin
CPT/HCPCS: 36415; 80053; 82550; 82784; 84165; 84550; 85025; 85652; 86140; 86200

== ENCOUNTER 2024-02-27 11:47 | Outpatient (AMB) | payer OTHER, SELFPAY ==
--- NOTE | 2024-02-27 13:41 | A.OFFVIS_ITS ---
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 Agosto, presents today for follow up. 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 Benedict 43-year-old female returns for follow-up of her fibromyalgia. She report she has been stable since last visit, nothing has changed and her total body pain continues. She remains on gabapentin taking 300 mg at night. The gabapentin does help her to sleep at night and she does not like to take it during the day. At her last visit she had some painful motion in the right shoulder that looked like rotator cuff tendinitis. She was sent for some physical therapy. She says that was helpful. She continues to do the exercises at home. Over the past month or two she has noted some right hand paresthesias. These occur almost exclusively at night and rarely during the day. 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 There has been no injury to the area. She has not seen any redness or swelling. [facility] Medical History (Updated 02/27/24 @ 14:13 by Vy Tristan, AIRAM-SCOTTY) Pain in joint involving multiple sites Acanthosis nigricans Hepatomegaly Hepatic steatosis Low back pain Vitamin D deficiency Seborrheic dermatitis Asthma Uterine fibroid Anemia Routine adult health maintenance Surgical History History of hysterectomy (~10/2022) History of sleeve gastrectomy History of myomectomy History of tonsillectomy H/O bilateral breast reduction surgery Family History Father DIVYA (obstructive sleep apnea) Diabetes HTN (hypertension) Mother Osteoporosis Hypoglycemia Cataract HTN (hypertension) Thyroid disease Maternal Aunt Breast cancer Maternal Grandmother Stroke Family/Other Lupus Other Mental health disorder Social History Household Members: None Housing: Apartment Are you a primary hearing healthcare practitioner to a significant other at home: No Do you presently have visiting nurse or other home services: No Alcohol intake: never Patient Tobacco Use Status: Never used Tobacco e-Cigarette/Vaping Use: Never Used Second Hand Smoke Exposure: No service: No Current occupational status: employed Current occupation: [employer] Current occupational exposures/hazards: No Gender identity: Female Cognitive needs: No Hearing needs: No Vision needs: No Female Reproductive History Menstrual Age of Menarche: 12 Review of Systems Const All systems reviewed & are unremarkable except as noted in HPI and below Physical Exam Vital Signs: Last Vital Signs Temp 97.9 F 02/27/24 13:42 Pulse 82 02/27/24 13:42 BP 116/80 02/27/24 13:42 Pulse Ox 98 02/27/24 13:42 Oxygen Delivery Method Room Air 02/27/24 13:42 BMI result Body Mass Index 41.5 APPEARANCE: Patient in no acute distress EYES no redness, pupils equal and reactive to light, eyelids normal HEART:? Regular rhythm, S1-S2 heard, no murmurs, rubs or gallops. LUNG:? Clear to percussion and auscultation NEURO: Oriented and alert x3. No focal weakness. Reflexes symmetric. Gait normal. SKIN: No inflammatory or neoplastic lesions. Normal color and turgor JOINT EXAM: .Cervical Spine:? Mild discomfort with extremes of normal range of motion without pain; no tenderness. Thoracic Spine:? No scoliosis.? No tenderness on palpation. Lumbar Spine:.? Alignment normal.? Mild lumbar pain with flexion at 60 degrees.? Mild paraspinal muscle tenderness. Chest Wall:.? No tenderness, swelling, increased warmth or erythema. Hands:.? Right:? Slight tenderness at the 3rd and 4th PIP joints but no swelling is appreciated.? There is some slight tenderness along the 2nd flexor tendon.? No thenar atrophy or sensory loss.? Left:? Mild tenderness along the 2nd and 5th flexor tendons but no triggering.? Slight tenderness in the 2nd and 3rd PIP joints without swelling.? No thenar atrophy or sensory loss. Wrists:.? Right: Normal pain-free range of motion with some slight volar tenderness but no swelling. Negative Tinel's and Phalen signs. Left: Normal pain-free range of motion with possible slight dorsal tenderness but no swelling, increased warmth or erythema. Elbows:. Normal pain-free range of motion without tenderness, swelling, increased warmth or erythema. Shoulders:.? Right: Mild discomfort with extremes of normal range of motion. There is some minimal anterior tenderness without abductor weakness, swelling or adenopathy. There is tenderness over the shoulder area anteriorly, posteriorly and over the trapezius muscle. Left:? Full range of motion with no pain. There is no tenderness, adenopathy, weakness, swelling, increased warmth or erythema. Hips:.? Full range of motion without pain. Hip bursa:.? No tenderness. Knees:.??Right:? Mild pain with extremes of flexion extension and some minimal medial tenderness without redness or effusion.? Left:? Normal pain-free range of motion without tenderness, swelling, increased warmth or erythema.? There is no effusion or crepitation Ankles:.? Left:? Mild discomfort with extremes of motion of some mild medial and lateral tenderness but no swelling.? Right:? Normal pain-free range of motion without tenderness, swelling, increased warmth or erythema. Feet:? Normal pain-free range of motion with mild hallux valgus deformity bilaterally but no areas of tenderness, swelling, increased warmth or erythema.? Some sensory loss in the soles of the feet. Tender points:? Mild tenderness to digital palpation at the occiput, trapezius, second rib, lateral epicondyle, knees, greater trochanter and gluteal area bilaterally. ? ? Results Reviewed Results Reviewed: [address] [address] XRay Report Signed Patient: Marichuy Don MR#: [id number] : 1980 Acct:[id number] Age/Sex: 42 / F ADM Date: 02/15/[address]: Vikram Agosto MD Ordering Physician: Vikram Agosto MD Date of Service: 02/15/23 Procedure(s): XR shoulder RT min 2V Accession Number(s): [id number] cc: Vikram Agosto MD~ EXAMINATION: XR SHOULDER, RIGHT CLINICAL INFORMATION: Reason for Exam M75.81 - Other shoulder lesions, right shoulder COMPARISON: None TECHNIQUE: Three views of the shoulder. FINDINGS: No acute fracture or dislocation. Moderate degenerative changes of the shoulder with loss of the acromioclavicular joint space and degenerative spurring. Soft tissues are unremarkable. XR/XR shoulder RT min 2V IMPRESSION: Moderate degenerative changes of the shoulder. Dictated By: Shira Ray MD Assessment & Plan Assessment & Plan (1) Tendinitis of right rotator cuff: Code(s): M75.81 - Other shoulder lesions, right shoulder (2) Fibromyalgia: Code(s): M79.7 - Fibromyalgia (3) Numbness and tingling in right hand: Code(s): R20.0 - Anesthesia of skin; R20.2 - Paresthesia of skin Plan #Fibromyalgia:Vivi has widespread pain and tender points consistent with fibromyalgia. Continue with gabapentin 300 mg at night. There is no sign of an active inflammatory process. #Right shoulder Pain:The right shoulder symptoms have improved with physical therapy. The radiograph of the shoulder was read as moderate OA. I think she may have some rotator cuff impingement. She will continue with the home exercises. #Hand Pain: The patient has some tenderness and mild swelling to hands. I will obtain some updated labs to further evaluate - such as ESR/CRP and Immunoglobulins. #Hand Paraesthesia: The nocturnal paresthesias suggest carpal tunnel syndrome. She continues to wear the right wrist splint nightly. I spent 35 minutes reviewing history, evaluating patient and documenting F/U 6 months Orders: Orders Erythrocyte Sedimentation Rate 02/27/24 M75.81 - Other shoulder lesions, right shoulder, M25.50 - Pain in unspecified joint Complete Blood Count Auto Diff 02/27/24.81 - Other shoulder lesions, right shoulder, M25.50 - Pain in unspecified joint C Reactive Protein 02/27/2475.81 - Other shoulder lesions, right shoulder, M25.50 - Pain in unspecified joint Creatine Kinase Total 02/27/24.81 - Other shoulder lesions, right shoulder, M25.50 - Pain in unspecified joint Uric Acid 02/27/24.81 - Other shoulder lesions, right shoulder, M25.50 - Pain in unspecified joint Immunoglobulins,IgG IgA IgM 02/27/24.81 - Other shoulder lesions, right shoulder, M25.50 - Pain in unspecified joint Cyclic Citrullinated Peptide 02/27/2475.81 - Other shoulder lesions, right shoulder, M25.50 - Pain in unspecified joint Comprehensive Met. Panel 02/27/24.81 - Other shoulder lesions, right shoulder, M25.50 - Pain in unspecified joint Protein Electrophoresis, Serum 02/27/24.81 - Other shoulder lesions, right shoulder, M25.50 - Pain in unspecified joint Coding Level of Care Code Est Pt Level 4 (61664) Diagnoses Tendinitis of right rotator cuff M75.81 Fibromyalgia M79.7 Numbness and tingling in right hand R20.0; R20.2
[2024-02-27 13:42] VITALS: BP 116/80; PULSE 82; TEMP 36.6; O2SAT 98; BMI 41.5
== END 2024-02-27 14:16 | disposition home or self-care (01) ==
PROVIDERS: PCP Family Medicine; Visit Provider Nurse Practitioner Family
DX: M75.81 Other shoulder lesions, right shoulder (principal); M79.7 Fibromyalgia; R20.0 Anesthesia of skin; R20.2 Paresthesia of skin
CPT/HCPCS: 99214

== ENCOUNTER 2024-02-28 12:30 | Outpatient (REF) | payer OTHER, SELFPAY ==
--- NOTE | ~2024-02-28 | US_ITS ---
EXAMINATION: US PELVIS CLINICAL INFORMATION: Right lower quadrant pain. Status post hysterectomy and left oophorectomy in 2021. COMPARISON: None available. TECHNIQUE: Transabdominal ultrasound images were obtained of the pelvis. Limited visualization due to bowel gas. FINDINGS: The uterus and left ovary are surgically absent. Limited visualization due to bowel gas. No significant free fluid. Right ovary measures 2.8 x 1.9 x 1.7 cm, volume 4.7 mL and is unremarkable. Limited visualization of the right ovary due to bowel gas. US/US pelvic and transvaginal IMPRESSION: 1. Uterus and left ovary are surgically absent. 2. Right ovary is unremarkable. Limited visualization due to bowel gas. 3. No significant free fluid.
== END 2024-02-28 12:31 | disposition home or self-care (01) ==
LOC: HO.US 12:30
PROVIDERS: PCP Family Medicine; Visit Provider Family Medicine
DX: R10.31 Right lower quadrant pain (principal)
CPT/HCPCS: 76830; 76856

== ENCOUNTER 2024-04-09 08:26 | Outpatient (AMB) | payer OTHER, SELFPAY ==
--- NOTE | 2024-04-09 08:31 | MHC.PC.OV ---
Vital Signs 04/09/24 08:38 Height 5 ft 3 in Weight 233 lb 6 oz BMI 41.3 BP 119/77 Blood Pressure Location Lt brachial Position Sitting Respiration 16 Pulse 80 Temp 98.5 F Temp Source Oral Pulse Oximetry (%) 99 Oxygen Delivery Method Room Air Intake Visit Reasons: f/u hypertension, immunization counseling Intake Note: Follow up HTN. Vomiting and diarrhea last Saturday and Saturday. Having ongoing pain today in lower right side. Had ultrasound 02/28/24, would like to discuss results. Requesting refill on betamethasone lotion and ciclopirox shampoo until she is seen by Dermatology appt end of May. Radiopharmacist Required: No Allergies Penicillins [PENICILLINS] Allergy (Unknown, Verified 04/09/24 08:34) THROAT SWELLING, urticaria, angiodema, difficult breathing pramipexole [From MIRAPEX] Allergy (Unknown, Verified 04/09/24 08:34) NAUSEA & VOMITING, DIARRHEA ropinirole [ROPINIROLE] Allergy (Unknown, Verified 04/09/24 08:34) NAUSEA & VOMITING, dizziness, weakness, anxiety Dust Mite Mixed Allergen Ext Allergy (Unknown, Uncoded 04/09/24 08:34) Unknown Pineapple Concentrate Allergy (Unknown, Uncoded 04/09/24 08:34) Unknown Medication List - Last Reconciled 04/09/24 by Delfin Fuchs MD albuterol sulfate 90 mcg/actuation 1 inh inhalation NEEDED PRN 30 days arm brace (Wrist Brace) use every night betamethasone, augmented 0.05 % 1 appl topical BID 15 days ciclopirox 1% 1 ea topical DAILY 30 days fluticasone propionate 50 mcg/actuation 1 spray intranasal Q12H gabapentin (Neurontin) 300 - 600 mg (1 - 2 x 300 mg) PO BEDTIME lisinopril-hydrochlorothiazide 10-12.5 mg 1 tab PO DAILY 30 days omeprazole 20 mg PO DAILY tretinoin 0.025% (Retin-A) 1 appl topical DAILY [wrist splint wear nightly and as much as possible throughout the day NS] Tobacco use date assessed: 02/13/24 Dental Screening Dental Screen Date: 02/13/24 HPI f/u hypertension, immunization counseling HPI Details Patient?presents?to?follow-up?hypertension.??Also?would?like?to?follow-up?on?ultrasound?for?abdominal?pain?and?constipation/diarrhea Ultrasound?of?abdomen?was?unremarkable Lab?work?did?not?show?any?evidence?of?infection. Blood?pressure?is?controlled. [facility] Medical History (Updated 04/09/24 @ 09:00 by Delfin Fuchs MD) Pain in joint involving multiple sites Acanthosis nigricans Hepatomegaly Hepatic steatosis Low back pain Vitamin D deficiency Seborrheic dermatitis Asthma Uterine fibroid Anemia Routine adult health maintenance Surgical History History of hysterectomy (~10/2022) History of sleeve gastrectomy History of myomectomy History of tonsillectomy H/O bilateral breast reduction surgery Family History Father DIVYA (obstructive sleep apnea) Diabetes HTN (hypertension) Mother Osteoporosis Hypoglycemia Cataract HTN (hypertension) Thyroid disease Maternal Aunt Breast cancer Maternal Grandmother Stroke Family/Other Lupus Other Mental health disorder Social History Household Members: None Housing: Apartment Are you a primary managed care provider to a significant other at home: No Do you presently have visiting nurse or other home services: No Alcohol intake: never Patient Tobacco Use Status: Never used Tobacco e-Cigarette/Vaping Use: Never Used Second Hand Smoke Exposure: No service: No Current occupational status: employed 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 Dhaval Ely, Melanie Mckeon, Donny Macedo and colleagues, with an educational jose l from [employer]. Review of Systems Const Details: CONSTITUTIONAL no fever. no fatigue. no chills. CARDIOVASCULAR no chest pain. no palpitations. RESPIRATORY no cough. no shortness of breath. no trouble breathing. no wheezing. GI: ?Still?has?abdominal?discomfort PSYCHIATRIC no anxiety. no depression. NEUROLOGIC no incoordination. no headache. no weakness. no dizziness. no gait abnormality. Physical exam (Primary Care) Tobacco/Smoking Status: Tobacco use Status Tobacco use date assessed 02/13/24 04/09/24 08:33 Patient Tobacco Use Status Never used Tobacco 04/09/24 08:33 e-Cigarette/Vaping Use Never Used 04/09/24 08:33 Thrive Assessment: Date of Thrive Assessment Date Thrive assessed 02/13/24 04/09/24 08:33 Const Other: General Appearance: no apparent distress, pleasant. Heart: RRR, no murmurs, clicks or rubs, no gallops. Lungs: clear to auscultation. Extremities: no edema. Neurologic Exam: alert and oriented x3, gait normal, Psych: Normal affect Assessment and Plan Assessment & Plan (1) Abdominal pain: Code(s): R10.9 - Unspecified abdominal pain Plan: Ongoing?abdominal?pain Ultrasound?was?unremarkable.??Labs?unremarkable?as?well She?is?also?having?constipation?and?diarrhea. Increase?liquids Will?give?her?some?MiraLax Check?plain?film?abdomen Stool?studies (2) Alternating constipation and diarrhea: Code(s): R19.8 - Other specified symptoms and signs involving the digestive system and abdomen Plan: As?above (3) Hypertension: Code(s): I10 - Essential (primary) hypertension Plan: Blood?pressure?is?well?controlled.??Goal?is?less?than?140/90 Continue?current?medication?regimen Orders: Orders GI Panel Today R19.7 - Diarrhea, unspecified XR KUB Today R10.9 - Unspecified abdominal pain Medications: New polyethylene glycol 3350 (Miralax) 17 grams PO DAILY 14 days 14 ea 0RF Changed From betamethasone, augmented 0.05 % 1 appl topical BID To betamethasone, augmented 0.05 % 1 appl topical BID 15 days 60 mL 0RF From ciclopirox 1% 1 ea topical DAILY To ciclopirox 1% 1 ea topical DAILY 30 days 120 mL 1RF Coding Level of Care Code Est Pt Level 4 (75844) Diagnoses Abdominal pain R10.9 Alternating constipation and diarrhea R19.8 Hypertension I10
[2024-04-09 08:38] VITALS: BP 119/77; PULSE 80; RESP 16; TEMP 36.9; O2SAT 99; BMI 41.3
== END 2024-04-09 09:08 | disposition home or self-care (01) ==
PROVIDERS: PCP Family Medicine; Visit Provider Family Medicine
DX: R10.9 Unspecified abdominal pain (principal); R19.8 Other specified symptoms and signs involving the digestive system and abdomen; I10 Essential (primary) hypertension
CPT/HCPCS: 99214

== ENCOUNTER 2024-04-30 11:50 | Outpatient (AMB) | payer OTHER, SELFPAY ==
[2024-04-30 11:56] VITALS: BP 120/70; PULSE 70; O2SAT 100; BMI 41.6
--- NOTE | 2024-04-30 11:56 | A.OFFPC_ITS ---
Vital Signs 04/30/24 11:56 Height 5 ft 3 in Weight 235 lb BMI 41.6 BP 120/70 Blood Pressure Location Lt brachial Position Sitting Pulse 70 Pulse Source Pulse Oximeter Pulse Oximetry (%) 100 Oxygen Delivery Method Room Air Intake Visit Reasons: F/U HTN Intake Note: Patient is here to follow up on hypertension, diarrhea, and pain in the lower abdomen. Allergies Penicillins [PENICILLINS] Allergy (Unknown, Verified 04/09/24 08:34) THROAT SWELLING, urticaria, angiodema, difficult breathing pramipexole [From MIRAPEX] Allergy (Unknown, Verified 04/09/24 08:34) NAUSEA & VOMITING, DIARRHEA ropinirole [ROPINIROLE] Allergy (Unknown, Verified 04/09/24 08:34) NAUSEA & VOMITING, dizziness, weakness, anxiety Dust Mite Mixed Allergen Ext Allergy (Unknown, Uncoded 04/09/24 08:34) Unknown Pineapple Concentrate Allergy (Unknown, Uncoded 04/09/24 08:34) Unknown Tobacco use date assessed: 04/30/24 Dental Screening Dental Screen Date: 02/13/24 HPI F/U HTN HPI Details 43 y/o female presents to f/u abd. pain with diarrhea/constipation. Had given her MiraLax. Checking plain film and also stool studies. Blood pressure today 120/70. She is on lisinopril-HCTZ 10-12.5mg daily. She reports diarrhea improved and states bowel movements have been fine but is still reporting ongoing RLQ abd. pain. HPI Comments History of Present Illness Details Documentation assistance for Delfin Fuchs MD, was provided by Gerson Kathleen,? Outpatient Surgery Rn on 04/30/2024 at 1:09 PM EST. I, Dr. Fuchs, have read, observed, and verified documentation. [facility] Medical History (Updated 04/09/24 @ 09:00 by Delfin Fuchs MD) Pain in joint involving multiple sites Acanthosis nigricans Hepatomegaly Hepatic steatosis Low back pain Vitamin D deficiency Seborrheic dermatitis Asthma Uterine fibroid Anemia Routine adult health maintenance Surgical History History of hysterectomy (~10/2022) History of sleeve gastrectomy History of myomectomy History of tonsillectomy H/O bilateral breast reduction surgery Family History Father DIVYA (obstructive sleep apnea) Diabetes HTN (hypertension) Mother Osteoporosis Hypoglycemia Cataract HTN (hypertension) Thyroid disease Maternal Aunt Breast cancer Maternal Grandmother Stroke Family/Other Lupus Other Mental health disorder Social History Household Members: None Housing: Apartment Are you a primary care trainer to a significant other at home: No Do you presently have visiting nurse or other home services: No Alcohol intake: never Patient Tobacco Use Status: Never used Tobacco e-Cigarette/Vaping Use: Never Used Second Hand Smoke Exposure: No service: No Current occupational status: employed Current occupation: [employer] Current occupational exposures/hazards: No Gender identity: Female Cognitive needs: No Hearing needs: No Vision needs: No Female Reproductive History Menstrual Age of Menarche: 12 Questionnaire Thrive Questionnaire Date Thrive assessed: 02/13/24 BEL-7 AMB Questionnaire BEL-7 Date BEL - 7 assessed: 09/12/23 Source: Developed by Drs. Dhaval Ely, Melanie Mckeon, Donny Mcaedo and colleagues, with an educational jose l from [employer]. Review of Systems Const Denies chills, Denies fatigue, Denies fever(s), Denies headache(s) and Denies weakness ENT Denies dizziness and Denies headache(s) Card Denies dyspnea Resp Denies cough, Denies dyspnea, Denies wheezing and Denies other (shortness of breath) GI Reports abdominal pain Musc Denies numbness and Denies tingling Neuro Denies dizziness, Denies headache(s), Denies numbness, Denies tingling and Denies weakness Psych Denies anxiety and Denies depression Endo Denies fatigue Aller/Immun Denies wheezing Physical exam (Primary Care) Vital Signs: Last Vital Signs Pulse 70 04/30/24 11:56 BP 120/70 04/30/24 11:56 Pulse Ox 100 04/30/24 11:56 Oxygen Delivery Method Room Air 04/30/24 11:56 BMI result Body Mass Index 41.6 Tobacco/Smoking Status: Tobacco use Status Tobacco use date assessed 04/30/24 04/30/24 12:03 Patient Tobacco Use Status Never used Tobacco 04/30/24 11:58 e-Cigarette/Vaping Use Never Used 04/30/24 11:58 Thrive Assessment: Date of Thrive Assessment Date Thrive assessed 02/13/24 04/30/24 11:58 Const General: well developed; No acute distress Nutritional Appearance: well nourished Orientation/consciousness: patient oriented x3 HENMT Head: Yes normocephalic and Yes atraumatic Eyes General: appearance normal, both eyes and all related structures Pupils: Equal, round and reactive pupils present EOM: EOMs intact bilaterally Resp Effort & Inspection: normal respiratory effort Neuro General: patient oriented x3 and gait normal Cranial nerves: Yes Equal, round and reactive pupils present Psych Affect: normal affect Assessment and Plan Assessment & Plan (1) Hypertension: Code(s): I10 - Essential (primary) hypertension Plan: Blood?pressure?appears?well?controlled.??Goal?is?less?than?140/90 Continue?current?medication?regimen (2) Abdominal pain: Code(s): R10.9 - Unspecified abdominal pain Plan: Pain?and?mild?tenderness?at?right?lower?quadrant?w hich?was?worse?when?she?had?constipation?and?diarrhea?and?still?changes?with?bow el?movements. Check?KUB Referred?to?GI (3) Alternating constipation and diarrhea: Code(s): R19.8 - Other specified symptoms and signs involving the digestive system and abdomen Plan: This?seems?improved?with?increase?in?hydration?and?use?of?MiraLax?as?needed Continue?good?hydration?and?continue?MiraLax?as?needed Referring?to?gastroenterology Call?or?return?to?office?if?worsening?or?not?improving?or?for?a ny?new,?concerning?symptoms. Orders: Referrals Gastroenterology Referral R10.9 - Unspecified abdominal pain Coding Level of Care Code Est Pt Level 4 (42745) Diagnoses Hypertension I10 Abdominal pain R10.9 Alternating constipation and diarrhea R19.8
== END 2024-04-30 13:11 | disposition home or self-care (01) ==
PROVIDERS: PCP Family Medicine; Visit Provider Family Medicine
DX: I10 Essential (primary) hypertension (principal); R10.9 Unspecified abdominal pain; R19.8 Other specified symptoms and signs involving the digestive system and abdomen
CPT/HCPCS: 99214

== ENCOUNTER 2024-05-01 12:03 | Outpatient (REF) | payer OTHER, SELFPAY ==
--- NOTE | ~2024-05-01 | XR_ITS ---
EXAMINATION: XR ABDOMEN KUB CLINICAL INDICATION: Unspecified abdominal pain. COMPARISON: None available. TECHNIQUE: AP view of the abdomen. FINDINGS: The bowel gas pattern is normal with no evidence of ileus or obstruction. No unusual soft tissue calcifications are noted. The bones are unremarkable. Surgical clips are seen in the left upper quadrant. XR/XR KUB IMPRESSION: No obstruction.
== END 2024-05-01 12:04 | disposition home or self-care (01) ==
LOC: HO.XRAY 12:03
PROVIDERS: PCP Family Medicine; Visit Provider Family Medicine
DX: R10.9 Unspecified abdominal pain (principal)
CPT/HCPCS: 74018

== ENCOUNTER 2024-07-10 08:29 | Outpatient (REF) | payer OTHER, SELFPAY ==
--- NOTE | ~2024-07-10 | MM_ITS ---
EXAMINATION: MM SCREENING DIGITAL BREAST TOMOSYNTHESIS, BILATERAL CLINICAL INFORMATION: Screening. Asymptomatic. COMPARISON: Mammography: This study is compared with prior exams dating back to 2020. TECHNIQUE: Digital breast tomosynthesis is performed in both the craniocaudal and mediolateral oblique views along with computer-aided detection (CAD). Direct 2-D images of each breast in the standard screening projections are also obtained. FINDINGS: The breasts are almost entirely fatty (ACR BI-RADS breast composition Category a). There are no significant masses, abnormal calcifications, or other abnormalities. MM/MM tomosynthesis screening BI IMPRESSION: No mammographic evidence of malignancy. ASSESSMENT: BI-RADS BI-RADS 1 - Negative RECOMMENDATION: Routine annual mammography screening. 1 year F/U This examination should not preclude the clinical evaluation of a suspicious palpable abnormality. This patient's information was entered into a reminder system with a target due date for their next mammogram. Electronically signed by: Josefina Celis MD 08/06/2024 12:14 PM EDT
== END 2024-07-10 08:30 | disposition home or self-care (01) ==
LOC: HO.MAMMO 08:29
PROVIDERS: PCP Family Medicine; Visit Provider Family Medicine
DX: Z12.31 Encounter for screening mammogram for malignant neoplasm of breast (principal)
CPT/HCPCS: 77063; 77067

== ENCOUNTER → 2024-07-10 08:30 | Outpatient (BNV) | payer OTHER, SELFPAY | PROVIDERS: PCP Family Medicine; Visit Provider Radiology Diagnostic Radiology | DX: Z12.31 Encounter for screening mammogram for malignant neoplasm of breast (principal) | CPT/HCPCS: 77063; 77067 ==

== ENCOUNTER 2024-08-06 08:34 | Outpatient (AMB) | payer OTHER, SELFPAY ==
--- NOTE | 2024-08-06 08:41 | A.OFFPC_ITS ---
Vital Signs 08/06/24 08:43 Height 5 ft 3 in Weight 241 lb 6 oz BMI 42.8 BP 127/76 Blood Pressure Location Rt radial Position Sitting Respiration 18 Pulse 73 Pulse Source Pulse Oximeter Temp 97.7 F Temp Source Temporal Artery Scan Pulse Oximetry (%) 100 Oxygen Delivery Method Room Air Intake Visit Reasons: f/u hypertension Intake Note: follow up HTN Allergies Penicillins [PENICILLINS] Allergy (Unknown, Verified 08/06/24 08:42) THROAT SWELLING, urticaria, angiodema, difficult breathing pramipexole [From MIRAPEX] Allergy (Unknown, Verified 08/06/24 08:42) NAUSEA & VOMITING, DIARRHEA ropinirole [ROPINIROLE] Allergy (Unknown, Verified 08/06/24 08:42) NAUSEA & VOMITING, dizziness, weakness, anxiety Dust Mite Mixed Allergen Ext Allergy (Unknown, Uncoded 04/09/24 08:34) Unknown Pineapple Concentrate Allergy (Unknown, Uncoded 04/09/24 08:34) Unknown Medication List - Last Reconciled 08/06/24 by Delfin Fuhcs MD albuterol sulfate 90 mcg/actuation 1 inh inhalation NEEDED PRN 30 days arm brace (Wrist Brace) use every night betamethasone, augmented 0.05 % 1 appl topical BID 15 days ciclopirox 1% 1 ea topical DAILY 30 days fluticasone propionate 50 mcg/actuation 1 spray intranasal Q12H gabapentin (Neurontin) 300 - 600 mg (1 - 2 x 300 mg) PO BEDTIME lisinopril-hydrochlorothiazide 10-12.5 mg 1 tab PO DAILY 30 days omeprazole 20 mg PO DAILY polyethylene glycol 3350 (Miralax) 17 grams PO DAILY 14 days tretinoin 0.025% (Retin-A) 1 appl topical DAILY [wrist splint wear nightly and as much as possible throughout the day NS] Tobacco use date assessed: 04/30/24 Dental Screening Dental Screen Date: 02/13/24 HPI f/u hypertension HPI Details 44 y/o female presents to f/u hypertensi on. Continues to watch salt/sodium in diet and has been getting some exercise. Blood pressure today 127/76. She is on lisinopril-hydrochlorothiazide 10-12.5mg daily. HPI Comments History of Present Illness Details Documentation assistance for Delfin Fuchs MD, was provided by Gerson Kathleen,? Butt Trimmer on 08/06/2024 at 8:55 AM EST. I, Dr. Fuchs, have read, observed, and verified documentation. [facility] Medical History (Updated 04/09/24 @ 09:00 by Delfin Fuchs MD) Pain in joint involving multiple sites Acanthosis nigricans Hepatomegaly Hepatic steatosis Low back pain Vitamin D deficiency Seborrheic dermatitis Asthma Uterine fibroid Anemia Routine adult health maintenance Surgical History History of hysterectomy (~10/2022) History of sleeve gastrectomy History of myomectomy History of tonsillectomy H/O bilateral breast reduction surgery Family History Father DIVYA (obstructive sleep apnea) Diabetes HTN (hypertension) Mother Osteoporosis Hypoglycemia Cataract HTN (hypertension) Thyroid disease Maternal Aunt Breast cancer Maternal Grandmother Stroke Family/Other Lupus Other Mental health disorder Social History Household Members: None Housing: Apartment Are you a primary critical care physician assistant to a significant other at home: No Do you presently have visiting nurse or other home services: No Alcohol intake: never Patient Tobacco Use Status: Never used Tobacco e-Cigarette/Vaping Use: Never Used Second Hand Smoke Exposure: No service: No Current occupational status: employed 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 Dhaval Ely, Melanie Mckeon, Donny Macedo and colleagues, with an educational jose l from [email or web address]. Review of Systems Const Denies chills, Denies fatigue, Denies fever(s), Denies headache(s) and Denies weakness ENT Denies dizziness and Denies headache(s) Card Denies chest pain, Denies lightheadedness, Denies dyspnea and Denies other (Palpitations) Resp Denies cough, Denies dyspnea, Denies wheezing and Denies other ( shortness of breath) Musc Denies numbness and Denies tingling Neuro Denies dizziness, Denies headache(s), Denies numbness, Denies tingling, Denies paresthesias and Denies weakness Psych Denies anxiety and Denies depression Endo Denies fatigue Aller/Immun Denies wheezing Physical exam (Primary Care) Vital Signs: Last Vital Signs Temp 97.7 F 08/06/24 08:43 Pulse 73 08/06/24 08:43 Resp 18 08/06/24 08:43 BP 127/76 08/06/24 08:43 Pulse Ox 100 08/06/24 08:43 Oxygen Delivery Method Room Air 08/06/24 08:43 BMI result Body Mass Index 42.8 Tobacco/Smoking Status: Tobacco use Status Tobacco use date assessed 04/30/24 08/06/24 08:45 Patient Tobacco Use Status Never used Tobacco 08/06/24 08:45 e-Cigarette/Vaping Use Never Used 08/06/24 08:45 Thrive Assessment: Date of Thrive Assessment Date Thrive assessed 02/13/24 08/06/24 08:45 Const General: no acute distress and well developed Nutritional Appearance: well nourished and obese morbidly obese Orientation/consciousness: patient oriented x3 HENMT Head: Yes normocephalic and Yes atraumatic Eyes General: appearance normal, both eyes and all related structures Pupils: Equal, round and reactive pupils present EOM: EOMs intact bilaterally Resp Effort & Inspection: normal respiratory effort Auscultation: clear to auscultation bilaterally Cardio Rate: regular rate Rhythm: regular rhythm Heart sounds: S1 normal heart sound present, S2 normal heart sound present, no gallops, no murmurs and no rubs Neuro General: patient oriented x3 and gait normal Cranial nerves: Yes Equal, round and reactive pupils present Psych Affect: normal affect Assessment and Plan Assessment & Plan (1) Hypertension: Code(s): I10 - Essential (primary) hypertension Plan: Blood?pressure?is?well?controlled.??Goal?is?less?than?140/90 Continue?current?medication Coding Level of Care Code Est Pt Level 3 (02381) Diagnoses Hypertension I10
[2024-08-06 08:43] VITALS: BP 127/76; PULSE 73; RESP 18; TEMP 36.5; O2SAT 100; BMI 42.8
== END 2024-08-06 08:59 | disposition home or self-care (01) ==
PROVIDERS: PCP Family Medicine; Visit Provider Family Medicine
DX: I10 Essential (primary) hypertension (principal)
CPT/HCPCS: 99213

== ENCOUNTER 2024-09-25 07:30 | Outpatient (AMB) | payer OTHER, SELFPAY ==
--- NOTE | 2024-09-25 07:33 | A.OFFVIS_ITS ---
Vital Signs 09/25/24 07:41 Height 5 ft 3 in Weight 247 lb 5.738 oz BMI 43.8 BP 112/72 Blood Pressure Location Lt brachial Position Sitting Pulse 90 Pulse Source Pulse Oximeter Pulse Oximetry (%) 98 Oxygen Delivery Method Room Air Intake Visit Reasons: FMS/cm Intake Note: Patient presents for FMS. Right shoulder, both hands and wrist pain. I feel pain on both hips and rt knee and both ankles. I been in pain for four years. I take Gabapentin for pain. Allergies Penicillins [PENICILLINS] Allergy (Unknown, Verified 09/25/24 07:39) THROAT SWELLING, urticaria, angiodema, difficult breathing pramipexole [From MIRAPEX] Allergy (Unknown, Verified 09/25/24 07:39) NAUSEA & VOMITING, DIARRHEA ropinirole [ROPINIROLE] Allergy (Unknown, Verified 09/25/24 07:39) NAUSEA & VOMITING, dizziness, weakness, anxiety Dust Mite Mixed Allergen Ext Allergy (Unknown, Uncoded 04/09/24 08:34) Unknown Pineapple Concentrate Allergy (Unknown, Uncoded 04/09/24 08:34) Unknown Medication List - Last Reconciled 09/25/24 by Anyi Castro MD albuterol sulfate 90 mcg/actuation 1 inh inhalation NEEDED PRN 30 days arm brace (Wrist Brace) use every night betamethasone, augmented 0.05 % 1 appl topical BID 15 days ciclopirox 1% 1 ea topical DAILY 30 days fluticasone propionate 50 mcg/actuation 1 spray intranasal Q12H gabapentin (Neurontin) 300 - 600 mg (1 - 2 x 300 mg) PO BEDTIME lisinopril-hydrochlorothiazide 10-12.5 mg 1 tab PO DAILY 30 days omeprazole 20 mg PO DAILY polyethylene glycol 3350 (Miralax) 17 grams PO DAILY 14 days tretinoin 0.025% (Retin-A) 1 appl topical DAILY [wrist splint wear nightly and as much as possible throughout the day NS] HPI Comments Details: Patient is a 44-year-old female morbidly obese with hypertension, asthma, restless legs syndrome, history of abnormal uterine bleeding status post hysterectomy and bilateral oophorectomy 2 years ago, and fibromyalgia who is here today for follow-up. Interval History: Patient last seen 02/27/2024 with Vy Tristan. At that time she continued to complain of her fibromyalgia type pains. She was recommended to go to physical therapy for shoulder pain. Today, She says that the shoulder pains have improved with physical therapy. Previously she was not able to lift her hand over her head but now she is able to do so bit. She continues to have pain involving her low back. Denies prolonged morning stiffness or isolated swelling to the joints. States that sometimes her sleep is poor because of her restless leg syndrome which she takes gabapentin for. Rheumatologic History: Patient established care 08/13/2022. At that time she was complain of multiple areas of pain involving her fingers, hands, wrists, knees, legs, toes and lateral hips. This pain has been going on for several years as well as fatigue. Exam at that time did not show any evidence of inflammatory arthritis and she was diagnosed with fibromyalgia. Serologies were checked including C-reactive protein, rheumatoid factor, ESR, JAKY as well as CCP which were all negative. Current Rheumatology Medication(s): Gabapentin 300 - 600mg at night [facility] Medical History (Updated 04/09/24 @ 09:00 by Delfin Fuchs MD) Pain in joint involving multiple sites Acanthosis nigricans Hepatomegaly Hepatic steatosis Low back pain Vitamin D deficiency Seborrheic dermatitis Asthma Uterine fibroid Anemia Routine adult health maintenance Surgical History History of hysterectomy (~10/2022) History of sleeve gastrectomy History of myomectomy History of tonsillectomy H/O bilateral breast reduction surgery Family History Father DIVYA (obstructive sleep apnea) Diabetes HTN (hypertension) Mother Osteoporosis Hypoglycemia Cataract HTN (hypertension) Thyroid disease Maternal Aunt Breast cancer Maternal Grandmother Stroke Family/Other Lupus Other Mental health disorder Social History Household Members: None Housing: Apartment Are you a primary medicare specialist to a significant other at home: No Do you presently have visiting nurse or other home services: No Alcohol intake: never Patient Tobacco Use Status: Never used Tobacco e-Cigarette/Vaping Use: Never Used Second Hand Smoke Exposure: No service: No Current occupational status: employed 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 Current occupational exposures/hazards: No Gender identity: Female Cognitive needs: No Hearing needs: No Vision needs: No Female Reproductive History Menstrual Age of Menarche: 12 Review of Systems Const Details: Review of Systems Constitutional: Denies fever, chills, weight loss ENT: Denies vision changes, eye pain or eye redness, dental caries, dry mouth GI: Denies nausea, vomiting, diarrhea, abdominal pain, change in BM Pulm: Denies SOB, ANTHONY, hemoptysis, wheezing Cards: Denies chest pain, palpitations Skin: Denies Raynaud's, rash, nail changes, photosensitivity, 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 ?Gait normal. Constitutional Mucous membranes pink and moist patient alert and cooperative HEENT Conjunctiva and sclera clear. ?Pupils equal round and reactive to light. ?No lymphadenopathy. ?Normal dentition. Respiratory System Normal respiratory effort and able to speak in complete sentences. ?Clear to auscultation bilaterally. ?No crackles, rales, rhonchi, wheezes heard. Cardiac System Regular rate and rhythm. ?S1 and S2 heard no murmurs. ?Radial pulses intact bilaterally MSK No deformity, swelling, abnormalities noted to bilateral hands. ?No evidence of synovitis. ?Able to move all joints with full range of motion, without limitation. Hands:.??Normal pain-free range of motion without tenderness, swelling, increased warmth or erythema. 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 Wrists: Normal pain-free range of motion without tenderness, swelling, increased warmth or erythema. Elbows: Full range of motion without pain. No tenderness, weakness, swelling, increased warmth or erythema. Shoulders: Full range of motion without pain. No tenderness, weakness, swelling, increased warmth or erythema. Though the range of motion of the right is a little bit limited there is full range of motion on active and passive movement. Hips: Full range of motion without pain. Hip bursa:.??No tenderness. Knees:.???Normal pain-free range of motion without tenderness, swelling, increased warmth or erythema.?No effusion or crepitations Ankles:.??Normal pain-free range of motion without tenderness, swelling, increased warmth or erythema. Feet:.??Normal pain-free range of motion without tenderness, swelling, increased warmth or erythema. Tender points:??Tenderness to digital palpation at the occiput, trapezius, second rib, lateral epicondyle, knees, greater trochanter bilaterally, and left gluteal. Results Reviewed Results Reviewed: Laboratory Tests 08/16/22 09/13/23 02/27/24 09:44 07:20 14:47 WBC 5.8 RBC 4.25 Hgb 12.4 Hct 38.7 Plt Count 293 ESR 30 H 25 H Sodium 140 Potassium 4.1 Chloride 104 Carbon Dioxide 29 BUN 16 Creatinine 0.86 Uric Acid 6.6 H Calcium 9.8 10.4 H D C-Reactive Protein 1.62 H 1.25 H Assessment & Plan Assessment & Plan (1) Fibromyalgia: Code(s): M79.7 - Fibromyalgia Category: Medical Plan: #Fibromyalgia History and exam confirm the diagnosis of fibromyalgia. Had a long discussion with patient about the treatment of this disease. That it is mainly lifestyle changes. Booklet printed and given to her. Continue with daily gabapentin and encouraged lifestyle modification. Plan I spent 20 minutes reviewing the record and labs, seeing the patient, discussing the treatment plan and documenting in the medical record ? Medications: Refilled gabapentin (Neurontin) 300 - 600 mg (1 - 2 x 300 mg) PO BEDTIME 60 caps 5RF M79.7 - Fibromyalgia Coding Level of Care Code Est Pt Level 3 (12926) Diagnoses Fibromyalgia M79.7
[2024-09-25 07:41] VITALS: BP 112/72; PULSE 90; O2SAT 98; BMI 43.8
== END 2024-09-25 08:05 | disposition home or self-care (01) ==
PROVIDERS: PCP Family Medicine; Visit Provider Student in an Organized Health Care Education/Training Program
DX: M79.7 Fibromyalgia (principal)
CPT/HCPCS: 99213

== ENCOUNTER → 2024-09-25 07:30 | Outpatient (BNVA) | payer OTHER, SELFPAY | PROVIDERS: PCP Family Medicine; Visit Provider Student in an Organized Health Care Education/Training Program ==

== ENCOUNTER 2024-10-01 11:22 | Outpatient (AMB) | payer OTHER, SELFPAY ==
--- NOTE | 2024-10-01 12:37 | AM.OFFVISNUR ---
Intake Visit Reasons: flu shot Allergies Penicillins [PENICILLINS] Allergy (Unknown, Verified 09/25/24 07:39) THROAT SWELLING, urticaria, angiodema, difficult breathing pramipexole [From MIRAPEX] Allergy (Unknown, Verified 09/25/24 07:39) NAUSEA & VOMITING, DIARRHEA ropinirole [ROPINIROLE] Allergy (Unknown, Verified 09/25/24 07:39) NAUSEA & VOMITING, dizziness, weakness, anxiety Dust Mite Mixed Allergen Ext Allergy (Unknown, Uncoded 04/09/24 08:34) Unknown Pineapple Concentrate Allergy (Unknown, Uncoded 04/09/24 08:34) Unknown Office Procedures Flu Questionnaire Does the patient have a severe egg allergy?: No Does the patient have severe life threatening allergies?: No Does the patient have a fever or illness today?: No Has the patient ever had Guillain-[place] Syndrome?: No Has the patient ever had any past reaction to a flu shot?: No Assessment & Plan Assessment & Plan Orders: Orders Influenza [id number] Immunization Today Z23 - Encounter for immunization Medications: New Fluarix Triv [id number] (PF) (flu vacc [id number] 6mos up(PF)) 0.5 mL IM ONCE 0.5 mL 0RF NS Z23 - Encounter for immunization
== END 2024-10-01 14:28 | disposition home or self-care (01) ==
LOC: HO.HMCFM 11:22
PROVIDERS: PCP Family Medicine; Visit Provider Family Medicine
DX: Z23 Encounter for immunization (principal)

== ENCOUNTER → 2024-10-01 11:22 | Outpatient (BNVA) | payer OTHER, SELFPAY | PROVIDERS: PCP Family Medicine; Visit Provider Family Medicine | DX: Z23 Encounter for immunization (principal) | CPT/HCPCS: 90471; 90656 ==

== ENCOUNTER 2025-01-15 08:44 | Outpatient (REF) | payer OTHER, SELFPAY ==
[2025-01-15 11:29] LABS: Lipase 8 U/L (8-78)
[2025-01-15 11:46] LABS: TSH reflex Free T4 2.85 uIU/mL (0.32-4.0)
[2025-01-15 11:58] LABS: Folate 9.4 ng/mL (> or = 4.0); Vitamin B12 547 pg/mL (200-900)
[2025-01-19 17:42] LABS: Transglutaminase IgA <1.0 U/mL
[2025-01-21 15:43] LABS: Vitamin D 25-OH, D2 <4 ng/mL; Vitamin D 25-OH, D3 24 ng/mL; Vitamin D 25-OH, Total 24 ng/mL (30-100)
== END 2025-01-15 08:45 | disposition home or self-care (01) ==
LOC: HO.LAB 08:44
PROVIDERS: PCP Family Medicine; Visit Provider Nurse Practitioner Family
DX: K59.00 Constipation, unspecified (principal); R19.7 Diarrhea, unspecified; E55.9 Vitamin D deficiency, unspecified; R10.9 Unspecified abdominal pain
CPT/HCPCS: 36415; 82306; 82607; 82746; 83690; 84443; 86364

== ENCOUNTER 2025-01-15 08:44 | Outpatient (AMB) | payer OTHER, SELFPAY ==
--- NOTE | 2025-01-15 08:50 | A.OFFVIS_ITS ---
Vital Signs 01/15/25 09:03 Height 5 ft 3 in Weight 234 lb 2.095 oz BMI 41.5 BP 126/88 Blood Pressure Location Rt brachial Position Sitting Pulse 70 Pulse Source Pulse Oximeter Pulse Oximetry (%) 98 Oxygen Delivery Method Room Air Intake Visit Reasons: Abdominal pain Intake Note: NEW PATIENT for initial assessment - abd pain. Prior hx of colo/egd? N Chief Complaint; C/O dysphagia and worsening reflux. Pt reports omeprazole has worked for her in the past but does not seem as effective anymore. Confirms that she is still taking PPI daily in the AM. Also reports bloating, and RLQ abd pain intermittently. Pt has attempted lifestyle and diet changes which has had a positive impact but has not resolved her issues. Primarily swapping out dairy products. One episode of melena in the past, none recently. Occasional painful BMs. Plaque Maker Required: No Accompanied by: Self / Same As Patient Allergies house dust mite Allergy (Mild, Verified 01/15/25 08:52) Runny Nose Penicillins [PENICILLINS] Allergy (Unknown, Verified 09/25/24 07:39) THROAT SWELLING, urticaria, angiodema, difficult breathing pineapple Allergy (Unknown, Verified 01/15/25 08:52) Unknown pramipexole [From MIRAPEX] Allergy (Unknown, Verified 09/25/24 07:39) NAUSEA & VOMITING, DIARRHEA ropinirole [ROPINIROLE] Allergy (Unknown, Verified 09/25/24 07:39) NAUSEA & VOMITING, dizziness, weakness, anxiety HPI HPI Abdominal pain: Details: 44-year-old female with past medical history of tendonitis of right rotator cuff, fibromyalgia, arthralgia GERD, anemia, status post hysterectomy, status post sleeve gastrectomy in 2018 is here today for initial consultation. Patient reports that she is not following up with bariatric services anymore. Patient does not follow any particular diet. Patient admits to be eating at bedtime. Currently is taking omeprazole 20 mg daily. Reports that her symptoms are postprandially reports epigastric pain and severe bloating. Patient reports depending on what she eats she might have diarrhea immediately after she eats and then she will be constipated for few days. Patient denies melena, hematochezia, unintentional weight loss or ribbon like stools. Couple episodes of blood when wiping after bowel movements. Patient reports occasional dyspepsia without dysphagia or odynophagia. [facility] Medical History (Updated 01/18/25 @ 20:02 by Veronica Jones [facility]) Hepatic steatosis Pain in joint involving multiple sites Acanthosis nigricans Hepatomegaly Low back pain Vitamin D deficiency Seborrheic dermatitis Asthma Uterine fibroid Anemia Routine adult health maintenance Surgical History History of hysterectomy (~10/2022) History of sleeve gastrectomy History of myomectomy History of tonsillectomy H/O bilateral breast reduction surgery Family History Father DIVYA (obstructive sleep apnea) Diabetes HTN (hypertension) Mother Osteoporosis Hypoglycemia Cataract HTN (hypertension) Thyroid disease Maternal Aunt Breast cancer Maternal Grandmother Stroke Family/Other Lupus Other Mental health disorder Social History Household Members: None Housing: Apartment Are you a primary caregivers homecare to a significant other at home: No Do you presently have visiting nurse or other home services: No Alcohol intake: never Patient Tobacco Use Status: Never used Tobacco e-Cigarette/Vaping Use: Never Used Second Hand Smoke Exposure: No service: No Current occupational status: employed Current occupation: [employer] Current occupational exposures/hazards: No Gender identity: Female Cognitive needs: No Hearing needs: No Vision needs: No Female Reproductive History Menstrual Age of Menarche: 12 Review of Systems Const Denies weight gain and Denies weight loss ENT Reports no additional complaints, Reports dysphagia and Denies odynophagia Card Reports no additional complaints Resp Reports no additional complaints GI Reports abdominal pain (Epigastric), Denies belching, Denies melena, Reports bloating (Postprandially), Denies change in bowel habits, Reports constipation, Reports dysphagia, Denies excessive flatus, Denies dyspepsia, Reports heartburn, Denies diarrhea, Reports loose stools, Denies nausea, Denies odynophagia and Denies vomiting Reports no additional complaints Musc Reports no additional complaints Neuro Reports no additional complaints Psych Reports no additional complaints Endo Reports no additional complaints Physical Exam Vital Signs: Last Vital Signs Pulse 70 01/15/25 09:03 BP 126/88 01/15/25 09:03 Pulse Ox 98 01/15/25 09:03 Oxygen Delivery Method Room Air 01/15/25 09:03 BMI result Body Mass Index 41.5 Const General: healthy appearing and no acute distress Nutritional Appearance: obese Orientation/consciousness: patient oriented x3 Resp Effort & Inspection: normal respiratory effort, able to speak in complete sentences, no tracheal deviation and symmetric chest movement Auscultation: clear to auscultation bilaterally Cardio Rate: regular rate GI Inspection: Yes normal to inspection, No distended and Yes obesity Palpation (GI): Soft to palpation, not firm, nontender and No hepatosplenomegaly present Auscultation: normal bowel sounds General: Yes no CVA tenderness Back/Spine/Pelvis Back: no CVA tenderness Skin General skin exam: elasticity normal, turgor normal and dry skin Neuro General: patient oriented x3 Psych Appearance: grossly normal Mental Status: mental status grossly normal Assessment & Plan Assessment & Plan (1) Alternating constipation and diarrhea: Code(s): R19.8 - Other specified symptoms and signs involving the digestive system and abdomen Category: Medical (2) Abdominal pain: Code(s): R10.9 - Unspecified abdominal pain Category: Medical Qualifiers: Abdominal location: epigastric Qualified Code(s): R10.13 - Epigastric pain (3) Right lower quadrant pain: Code(s): R10.31 - Right lower quadrant pain Category: Medical (4) Screening for colon cancer: Code(s): Z12.11 - Encounter for screening for malignant neoplasm of colon Category: Medical (5) GERD (gastroesophageal reflux disease): Code(s): K21.9 - Gastro-esophageal reflux disease without esophagitis Category: Medical Qualifiers: Esophagitis presence: esophagitis presence not specified Qualified Code(s): K21.9 - Gastro-esophageal reflux disease without esophagitis Plan Patient will continue omeprazole. She will purchased [id number] fiber supplements with pre and probiotics. Patient will start taking senna in the evening to help her evacuate her bowels better. Will send her for upper GI with barium swallow. Will check thyroid study, vitamin B12, folate, vitamin-D and check for celiac. Discussed with patient avoiding dietary triggers and late night snacking. Staying upright for minimum 3 hours after meals discussed with patient. We discussed also low FODMAP diet. List of food recommended as well as list of food to avoid given to patient. Patient is due to go for colonoscopy we will send her for that. She will also go for upper endoscopy. Patient will follow-up in our office in 2 months. She will call us if she will have worsening symptoms. Recommended to patient to go and follow-up with bariatric services regarding diet. We discussed that some of the shakes are containing lactose, she should stay away from lactose all together. She is agreeable to this plan and verbalizes understanding of instructions. She was given the opportunity to ask questions and all questions answered. Thank you for allowing me to participate in her care Orders: Orders TSH reflex Free T4 01/15/25 K59.00 - Constipation, unspecified Vitamin B12 and Folate 01/15/25 R19.7 - Diarrhea, unspecified Lipase 01/15/25 R10.9 - Unspecified abdominal pain Vitamin D 25-OH (D2 and D3) 01/15/25 E55.9 - Vitamin D deficiency, unspecified [place] upper GI w Ba Swallow 01/15/25 K21.9 - Gastro-esophageal reflux disease without esophagitis Transglutaminase IgA 01/15/25 R10.9 - Unspecified abdominal pain Medications: New sennosides (Natural Senna Laxative) 17.2 mg (2 x 8.6 mg) PO BEDTIME 60 tabs 3RF constipation K59.00 - Constipation, unspecified Coding Level of Care Code New Pt Level 4 (66223) Diagnoses Alternating constipation and diarrhea R19.8 Epigastric pain R10.13 Abdominal location: epigastric Right lower quadrant pain R10.31 Screening for colon cancer Z12.11 Gastroesophageal reflux disease, unspecified whether esophagitis present K21.9 Esophagitis presence: esophagitis presence not specified Time Spent (min) 45 Comment 30 minutes spent with patient and additional 15 minutes spent reviewing her records
[2025-01-15 09:03] VITALS: BP 126/88; PULSE 70; O2SAT 98; BMI 41.5
== END 2025-01-15 09:39 | disposition home or self-care (01) ==
PROVIDERS: PCP Family Medicine; Visit Provider Nurse Practitioner Family
DX: R19.7 Diarrhea, unspecified (principal); K59.00 Constipation, unspecified; K21.9 Gastro-esophageal reflux disease without esophagitis
CPT/HCPCS: 99204

== ENCOUNTER 2025-03-04 09:57 | Outpatient (REF) | payer OTHER, SELFPAY ==
[2025-03-04 11:28] LABS: Appearance Urine Clear; Color Urine Yellow; Glucose Urine UA Negative (Negative); Leukocyte Esterase Urine Negative (Negative); Nitrite Urine Negative (Negative); PH 5.5 (5.0-9.0); Specific Gravity - Urine 1.025 (1.005-1.025); Urine Blood Negative (Negative); Urine Ketones Negative (Negative); Urine Protein Negative (Neg-Trace)
[2025-03-04 11:49] LABS: MANUAL DIFF FLAG NO
[2025-03-04 11:57] LABS: Basophils Percent Auto 0.8 % (0-2); Eosinophils Absolute Auto 0.1 X10*3/uL (0.0-0.4); Eosinophils Percent Auto 1.6 % (0-4); Hematocrit 37.6 % (37.0-47.0); Hemoglobin 12.3 g/dl (12.0-16.0); Lymphocytes Absolute Auto 1.7 X10*3/uL (1.2-4.9); Lymphocytes Percent Auto 46.2 % (20-40); Mean Corpuscular HGB Conc 32.7 g/dl (31.0-35.0); Mean Corpuscular Hemoglobin 29.6 pg (27.0-33.0); Mean Corpuscular Volume 90.6 fL (80.0-98.0); Mean Platelet Volume 12.2 fL (9.4-12.3); Monocytes Absolute Auto 0.2 X10*3/uL (0.1-1.2); Monocytes Percent Auto 5.8 % (2-11); Neutrophils Absolute Auto 1.7 x10*3/uL (2.0-8.3); Neutrophils Percent Auto 45.6 % (45-73); Platelet Count 278 X10*3/uL (160-400); Red Blood Count 4.15 X10*6/uL (4.20-5.50); Red Cell Distribution Width 13.7 % (11.0-16.0); White Blood Count 3.6 X10*3/uL (4.8-10.8)
[2025-03-04 12:22] LABS: Creatinine Urine 199.27 mg/dL; Microalbum/Creatinine Ratio Ur 9.5 ug/mg cr (<30)
[2025-03-04 12:40] LABS: Alanine Aminotransferase 14 U/L (0-31); Albumin Level 4.1 g/dL (3.5-5.0); Alkaline Phosphatase 102 U/L (39-117); Anion Gap 10 (12-20); Aspartate Amino Transferase 21 U/L (5-31); Bilirubin Total 0.3 mg/dL (0.0-1.0); Blood Urea Nitrogen 9 mg/dL (9-16); Calcium 9.5 mg/dL (8.4-10.2); Carbon Dioxide 27 mmol/L (22-29); Chloride 110 mmol/L (96-108); Cholesterol 160 mg/dL (<200); Estimated Glomerular Filt Rate > 60; Glucose Fasting 91 mg/dL (60-99); HDL Cholesterol 53 mg/dL (>40); LDL Cholesterol Calculated 80 mg/dL (<100); Potassium 3.9 mmol/L (3.3-5.1); Sodium 143 mmol/L (135-145); TSH reflex Free T4 3.32 uIU/mL (0.32-4.0); Total Protein 7.3 g/dL (6.5-8.0); Triglycerides 138 mg/dL (<150)
== END 2025-03-04 09:58 | disposition home or self-care (01) ==
LOC: HO.WFDLDS 09:57
PROVIDERS: Visit Provider Family Medicine
DX: Z00.00 Encounter for general adult medical examination without abnormal findings (principal); I10 Essential (primary) hypertension
CPT/HCPCS: 36415; 80053; 80061; 81003; 82043; 82570; 84443; 85025

== ENCOUNTER 2025-03-11 09:09 | Outpatient (AMB) | payer OTHER, SELFPAY ==
--- NOTE | 2025-03-11 09:16 | A.OFFPC_ITS ---
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 Required: No Allergies house dust mite Allergy (Mild, Verified 03/11/25 09:25) Runny Nose Penicillins [PENICILLINS] Allergy (Unknown, Verified 03/11/25 09:25) THROAT SWELLING, urticaria, angiodema, difficult breathing pineapple Allergy (Unknown, Verified 03/11/25:25) Unknown pramipexole [From MIRAPEX] Allergy (Unknown, Verified 03/11/25 09:25) NAUSEA & VOMITING, DIARRHEA ropinirole [ROPINIROLE] Allergy (Unknown, Verified 03/11/25 09:25) NAUSEA & VOMITING, dizziness, weakness, anxiety Medication List - Last Reconciled 03/11/25 by Delfin Fuchs MD albuterol sulfate 90 mcg/actuation 1 inh inhalation NEEDED PRN 30 days arm brace (Wrist Brace) use every night betamethasone, augmented 0.05 % 1 appl topical BID 15 days ciclopirox 1% 1 ea topical DAILY 30 days fluticasone propionate 50 mcg/actuation 1 spray intranasal Q12H gabapentin (Neurontin) 300 - 600 mg (1 - 2 x 300 mg) PO BEDTIME lisinopril-hydrochlorothiazide 10-12.5 mg 1 tab PO DAILY 30 days omeprazole 20 mg PO DAILY polyethylene glycol 3350 (Miralax) 17 grams PO DAILY 14 days sennosides (Natural Senna Laxative) 17.2 mg (2 x 8.6 mg) PO BEDTIME tretinoin 0.025% (Retin-A) 1 appl topical DAILY [wrist splint wear nightly and as much as possible throughout the day NS] Tobacco use date assessed: 04/30/24 Dental Screening Dental Screen Date: 03/11/25 Did you have a dental visit in the last 12 months?: Yes Did you have a dental problem in the last 6 months where you did not have access to dental care?: No Was dental information given to patient?: Yes HPI CPE with f/u labs and health maint HPI Details 44 y/o female presents for a CPE with f/ u labs and health maintenance. Labs drawn 03/04/25. Reviewed labs with pt. WBC 3.6. RBC mildly low at 4.15. Liver enzymes are fine. Triglycerides 138. TC 160. LDL 80. HDL 53. TSH 3.32. Blood pressure today 145/73, 88p. She notes she has not taken her blood pressure meds yet today. She is on lisinopril-HCTZ 10-12.5mg daily. [facility] Medical History Hepatic steatosis Pain in joint involving multiple sites Acanthosis nigricans Hepatomegaly Low back pain Vitamin D deficiency Seborrheic dermatitis Asthma Uterine fibroid Anemia Routine adult health maintenance Surgical History History of hysterectomy (~10/2022) History of sleeve gastrectomy History of myomectomy History of tonsillectomy H/O bilateral breast reduction surgery Family History Father DIVYA (obstructive sleep apnea) Diabetes HTN (hypertension) Mother Osteoporosis Hypoglycemia Cataract HTN (hypertension) Thyroid disease Maternal Aunt Breast cancer Maternal Grandmother Stroke Family/Other Lupus Other Mental health disorder Social History Household Members: None Housing: Apartment Are you a primary pediatric acute care unit nurse to a significant other at home: No Do you presently have visiting nurse or other home services: No Alcohol intake: never Patient Tobacco Use Status: Never used Tobacco e-Cigarette/Vaping Use: Never Used Second Hand Smoke Exposure: No service: No Current occupational status: employed 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 1. Little interest or pleasure in doing things: several days 2. Feeling down, depressed, or hopeless: not at all 3. Trouble falling or staying asleep, or sleeping too much: not at all 4. Feeling tired or having little energy: several days 5. Poor appetite or overeating: not at all 6. Feeling bad about yourself - or that you are a failure or have let yourself or your family down: not at all 7. Trouble concentrating on things, such as reading the newspaper or watching television: several days 8. Moving or speaking so slowly that other people could have noticed. Or the opposite - being so fidgety or restless that you have been moving around a lot more than usual: not at all 9. Thoughts that you would be better off or of hurting yourself in some way: not at all Total score: 3 Depression Screening Interpretation: Negative Depression Screening Done: Yes 69779 - PHQ-9 Billing: Yes Source: Developed by Drs. Dhaval Ely, Melanie Mckeon, Donny Macedo and colleagues, with an educational jose l from [employer]. Thrive Questionnaire Date Thrive assessed: 03/11/25 I am a: Patient What is your living situation today?: I have a steady place to live Within the past 12 months, did the food you bought not last and you didn't have the money to get more?: Never true Within the past 12 months, did you worry whether your food would run out before you got money to buy more?: Never true Do you have trouble paying for medicines?: No Do you have trouble getting transportation to medical appointments?: No Do you have trouble paying your heating and electricity bill?: No Do you have trouble taking care of your child, family member or friend?: No Do you have trouble with day-to-day activities such as bathing, preparing meals, shopping, managing finances, etc.?: No Are you currently unemployed and looking for a job?: No Are you interested in more education?: No Please select the resources that you would like help with: None Currently or been in a relationship where the following occur: No concerns reported THRIVE Score: 0 AUDIT C Alcohol Use Questionnaire (AUDIT-C) 1. How often do you have a drink containing alcohol?: Never Total Score: 0 Score Reviewed/Action Taken: Yes BEL-7 AMB Questionnaire BEL-7 Date BEL - 7 assessed: 03/11/25 Feeling nervous, anxious, or on edge: 0 = Not at all Not being able to stop or control worryin = Not at all Worrying too much about different things: 0 = Not at all Trouble relaxin = Not at all Being so restless that it is hard to sit still: 0 = Not at all Becoming easily annoyed or irritable: 0 = Not at all Feeling afraid as if something awful might happen: 0 = Not at all Total BEL-7 score (0-4 normal; 5-9 mild; 10-14 moderate; 15-21 severe): 0 Source: Developed by Drs. Dhaval Ely, Melanie Mckeon, Donny Macedo and colleagues, with an educational jose l from [employer]. BEL-7 Assessment Billing BEL-7 Assessment Tool: BEL-7 Assessment 03000 ACT Questionnaire In the past 4 weeks, how much of the time did your asthma keep you from getting as much done at work, school or at home?: Some of the time During the past 4 weeks, how often have you had shortness of breath?: 1-2 times a week During the past 4 weeks, how often did your asthma symptoms wake you up at night or earlier than usual in the morning?: Once or twice per week During the past 4 weeks, how often have you had to use your rescue inhaler or nebulizer medication?: 1-2 times a week How would you rate your asthma control during the past 4 weeks?: Somewhat controlled ACT Interpretation: Positive Score: 16 Review of Systems Const Denies chills, Denies fatigue, Denies fever(s), Denies headache(s) and Denies weakness Eyes Denies change in vision ENT Denies dizziness, Denies headache(s), Denies hearing loss, Denies nasal congestion, Denies sinus pain, Denies sinus pressure and Denies sore throat Card Denies chest pain, Denies lightheadedness, Denies dyspnea and Denies other (palpitations) Resp Denies cough, Denies dyspnea and Denies wheezing GI Denies abdominal pain, Denies melena, Denies hematochezia, Denies change in bowel habits, Denies dyspepsia and Denies nausea Denies hematuria and Denies dysuria Musc Denies abnormal gait, Denies myalgias, Denies arthralgias, Denies numbness and Denies tingling Skin/Breast Denies rash, Denies unusual bruising and Denies wounds Neuro Denies abnormal gait, Denies dizziness, Denies headache(s), Denies memory loss, Denies numbness, Denies Sensory deficit (Neuro), Denies tingling and Denies weakness Psych Denies anxiety, Denies depression and Denies memory loss Endo Denies cold intolerance, Denies fatigue, Denies heat intolerance, Denies polydipsia and Denies polyuria Michael/Lymph Denies easy bleeding and Denies easy bruising Aller/Immun Denies wheezing Physical exam (Primary Care) Vital Signs: Last Vital Signs Temp 98.0 F 03/11/25 09:26 Pulse 88 03/11/25 09:26 Resp 16 03/11/25 09:26 BP 145/73 H 03/11/25 09:26 Pulse Ox 100 03/11/25 09:26 Oxygen Delivery Method Room Air 03/11/25 09:26 BMI result Body Mass Index 41.9 Tobacco/Smoking Status: Tobacco use Status Tobacco use date assessed 04/30/24 03/11/25 09:18 Patient Tobacco Use Status Never used Tobacco 03/11/25 09:18 e-Cigarette/Vaping Use Never Used 03/11/25 09:18 PHQ-9: PHQ-9 Score PHQ-9: Total score 3 03/11/25 09:26 Depression Screening Interpretation: Negative Thrive Assessment: Date of Thrive Assessment Date Thrive assessed 03/11/25 03/11/25 09:18 Currently or been in a relationship where the following occur: No concerns reported Const General: no acute distress, well developed, alert and awake Nutritional Appearance: well nourished Orientation/consciousness: patient oriented x3 HENMT Head: Yes normocephalic and Yes atraumatic Ears: hearing grossly normal bilaterally and TM's normal bilaterally General nose exam: Normal external nose present and Normal nares present Mouth: Normal oral and palatal mucosa present and moist mucous membranes Teeth and gingiva: dentition normal Throat: Yes posterior oropharynx normal Eyes General: appearance normal, both eyes and all related structures Pupils: Equal, round and reactive pupils present and Pupil accommodation reflex normal EOM: EOMs intact bilaterally Neck Neck: Yes normal visual inspection, Yes no lymphadenopathy and Yes trachea midline Thyroid: Thyroid normal Carotids: no bruits Lymphatic: no lymphadenopathy noted Chest Chest palpation & inspection: normal inspection of the chest Resp Effort & Inspection: normal respiratory effort Auscultation: clear to auscultation bilaterally Cardio Rate: regular rate Rhythm: regular rhythm Heart sounds: S1 normal heart sound present, S2 normal heart sound present, no gallops, no murmurs and no rubs Bruits: no abdominal aortic bruits and no carotid bruits GI Palpation (GI): No Abdominal aortic bruit present, Soft to palpation, nontender, No hepatosplenomegaly present and No Rebound tenderness present Auscultation: normal bowel sounds General: Yes no CVA tenderness Back/Spine/Pelvis Back: no CVA tenderness Cervical Spine: cervical ROM normal and No Cervical spine tenderness Thoracic/Lumbar Spine: thoraco-lumbar ROM normal, No pain with thoraco-lumbar ROM, No thoracic spinal tenderness and No lumbar spinal tenderness Skin Lesions: no lesions Rashes: no rashes Trauma: no lacerations or abrasions Wounds: no wounds Nails: normal Neuro General: patient oriented x3 Cranial nerves: Yes Equal, round and reactive pupils present Cognition (Neuro): normal cognition Gait exam (Neuro): Normal gait present Motor exam (neuro): 5/5 motor strength present throughout Sensory Exam: No Sensory deficit (Neuro) Deep tendon reflexes (DTR's): Right patellar reflex intensity grade: 2+ and Left patellar reflex intensity grade: 2+ Extrem General: Yes normal to inspection and No edema Psych Appearance: grossly normal Affect: normal affect Attitude: cooperative Thought process: Normal thought process present Coding Level of Care Code Est Pt Level 3 (65668) Est Pt Prev Care 40-64y(84846) Diagnoses Adult general medical exam Z00.00 Hypertension I10 Breast cancer screening by mammogram Z12.31 Screening for cervical cancer Z12.4 Screening for colon cancer Z12.11 Additional Codes Asthma Control Questionnaire - ACT Interpretation: Positive ([id number]) BEL-7 Assessment Billing - BEL-7 Assessment Tool: BEL-7 Assessment 28948 ([id number]) PHQ-9 - 62838 - PHQ-9 Billing: Yes ([id number]) Assessment & Plan Assessment & Plan (1) Adult general medical exam: Code(s): Z00.00 - Encounter for general adult medical examination without abnormal findings Category: Medical Plan: 44-year-old?female?presents?for?complete?physical?exam Encouraged?healthy?diet?with?active?lifestyle?and?plenty?of?exercise (2) Hypertension: Code(s): I10 - Essential (primary) hypertension Category: Medical Plan: Blood?pressure?is?elevated?today.??She?has?not?taken?her?medication?yet Reminded?her?to?take?her?medication (3) Breast cancer screening by mammogram: Code(s): Z12.31 - Encounter for screening mammogram for malignant neoplasm of breast Category: Medical Plan: Last?mammogram?in?July?and?she?says?she?has?her?next?mammogram?scheduled (4) Screening for cervical cancer: Code(s): Z12.4 - Encounter for screening for malignant neoplasm of cervix Category: Medical Plan: Patient?is?s/p?hysterectomy. She?can?contact?roll forming supervisor?for?routine?roll forming supervisor?care (5) Screening for colon cancer: Code(s): Z12.11 - Encounter for screening for malignant neoplasm of colon Category: Medical Plan: Followed?by?Gastroenterology?at?[facility]?and?has?appointment Orders: Orders MM tomosynthesis screening BI Today Z12.31 - Encounter for screening mammogram for malignant neoplasm of breast
[2025-03-11 09:26] VITALS: BP 145/73; PULSE 88; RESP 16; TEMP 36.7; O2SAT 100; BMI 41.9
== END 2025-03-11 10:02 | disposition home or self-care (01) ==
LOC: HO.HMCFM 09:10
PROVIDERS: PCP Family Medicine; Visit Provider Family Medicine
DX: Z00.00 Encounter for general adult medical examination without abnormal findings (principal); I10 Essential (primary) hypertension; Z12.31 Encounter for screening mammogram for malignant neoplasm of breast; Z12.11 Encounter for screening for malignant neoplasm of colon

== ENCOUNTER → 2025-03-11 09:09 | Outpatient (BNVA) | payer OTHER, SELFPAY | PROVIDERS: PCP Family Medicine; Visit Provider Family Medicine | DX: Z00.00 Encounter for general adult medical examination without abnormal findings (principal); I10 Essential (primary) hypertension | CPT/HCPCS: 96127; 96160 ==

== ENCOUNTER 2025-03-19 13:45 | Outpatient (AMB) | payer OTHER, SELFPAY ==
--- NOTE | 2025-03-19 13:50 | A.OFFVIS_ITS ---
Vital Signs 03/19/25 13:52 Height 5 ft 3 in Weight 231 lb 7.766 oz BMI 41.0 BP 144/78 H Blood Pressure Location Lt brachial Position Sitting Pulse 67 Intake Visit Reasons: Gerd, IBS Intake Note: Marichuy presents in the office for GERD and IBS. CC: She states that she is suffering from GERD - she was given the SENNA but she is still having the issues with the constipation and bloating in the stomach. Allergies house dust mite Allergy (Mild, Verified 03/19/25 13:53) Runny Nose Penicillins [PENICILLINS] Allergy (Unknown, Verified 03/19/25 13:53) THROAT SWELLING, urticaria, angiodema, difficult breathing pineapple Allergy (Unknown, Verified 03/19/25 13:53) Unknown pramipexole [From MIRAPEX] Allergy (Unknown, Verified 03/19/25 13:53) NAUSEA & VOMITING, DIARRHEA ropinirole [ROPINIROLE] Allergy (Unknown, Verified 03/19/25 13:53) NAUSEA & VOMITING, dizziness, weakness, anxiety HPI HPI Gerd, IBS: Details: LAST VISIT: Alternating constipation and diarrhea Abdominal pain Right lower quadrant pain Screening for colon cancer GERD (gastroesophageal reflux disease) Plan Patient will continue omeprazole. She will purchased [id number] fiber supplements with pre and probiotics. Patient will start taking senna in the evening to help her evacuate her bowels better. Will send her for upper GI with barium swallow. Will check thyroid study, vitamin B12, folate, vitamin-D and check for celiac. Discussed with patient avoiding dietary triggers and late night snacking. Staying upright for minimum 3 hours after meals discussed with patient. We discussed also low FODMAP diet. List of food recommended as well as list of food to avoid given to patient. Patient is due to go for colonoscopy we will send her for that. She will also go for upper endoscopy. Patient will follow-up in our office in 2 months. She will call us if she will have worsening symptoms. Recommended to patient to go and follow-up with bariatric services regarding diet. We discussed that some of the shakes are containing lactose, she should stay away from lactose all together. She is agreeable to this plan and verbalizes understanding of instructions. She was given the opportunity to ask questions and all questions answered. ? Thank you for allowing me to participate in her care Orders Orders TSH reflex Free T4 01/15/25 K59.00 Vitamin B12 and Folate 01/15/25 R19.7 Lipase 01/15/25 R10.9 Vitamin D 25-OH (D2 and D3) 01/15/25 E55.9 FL upper GI w Ba Swallow 01/15/25 K21.9 Transglutaminase IgA 01/15/25 R10.9 Medications New sennosides (Natural Senna Laxative) 17.2 mg (2 x 8.6 mg) PO BEDTIME 60 tabs 3RF constipation K59.00 TODAY'S VISIT Patient is here today for follow-up and to discuss going for colonoscopy and upper endoscopy. Patient reports that she is taking omeprazole, however she continues to have acid reflux and epigastric pain. All her lab work was negative except for mildly low vitamin-D. Patient is taking supplement. Patient denies any nausea or vomiting. Denies dyspepsia, dysphagia or odynophagia. Patient has upper GI series scheduled for April 08. She is taking 1 Senokot occasionally, however states that she is not having success. Still having trouble with bowel movements. Denies melena, hematochezia, unintentional weight loss or ribbon like stools. Patient denies any mucus in her stools. [facility] Medical History (Updated 04/08/25 @ 20:40 by Veronica Jones [facility]) Hepatic steatosis Pain in joint involving multiple sites Acanthosis nigricans Hepatomegaly Low back pain Vitamin D deficiency Seborrheic dermatitis Asthma Uterine fibroid Anemia Routine adult health maintenance Surgical History (Updated 03/19/25 @ 13:53 by LADI Thompson) History of esophagogastroduodenoscopy (EGD) History of hysterectomy (~10/2022) History of sleeve gastrectomy History of myomectomy History of tonsillectomy H/O bilateral breast reduction surgery Family History Father DIVYA (obstructive sleep apnea) Diabetes HTN (hypertension) Mother Osteoporosis Hypoglycemia Cataract HTN (hypertension) Thyroid disease Maternal Aunt Breast cancer Maternal Grandmother Stroke Family/Other Lupus Other Mental health disorder Social History Household Members: None Housing: Apartment Are you a primary career information specialist to a significant other at home: No Do you presently have visiting nurse or other home services: No Alcohol intake: never Patient Tobacco Use Status: Never used Tobacco e-Cigarette/Vaping Use: Never Used Second Hand Smoke Exposure: No service: No Current occupational status: employed Current occupation: [employer] Current occupational exposures/hazards: No Gender identity: Female Cognitive needs: No Hearing needs: No Vision needs: No Female Reproductive History Menstrual Age of Menarche: 12 Physical Exam Vital Signs: Last Vital Signs Pulse 67 03/19/25 13:52 BP 144/78 H 03/19/25 13:52 BMI result Body Mass Index 41.0 Results Reviewed Results Reviewed: Laboratory Tests 01/15/25 10:13 Lipase 8 Vitamin B12 547 25-OH Vitamin D Total 24 L TSH 2.85 Tiss Transglutamin IgA <1.0 Assessment & Plan Assessment & Plan (1) Alternating constipation and diarrhea: Code(s): R19.8 - Other specified symptoms and signs involving the digestive system and abdomen Category: Medical (2) Abdominal pain: Code(s): R10.9 - Unspecified abdominal pain Category: Medical Qualifiers: Abdominal location: epigastric Qualified Code(s): R10.13 - Epigastric pain (3) Diarrhea: Code(s): R19.7 - Diarrhea, unspecified Category: Medical Qualifiers: Diarrhea type: functional diarrhea Qualified Code(s): K59.1 - Functional diarrhea (4) Right lower quadrant pain: Code(s): R10.31 - Right lower quadrant pain Category: Medical (5) Screening for colon cancer: Code(s): Z12.11 - Encounter for screening for malignant neoplasm of colon Category: Medical (6) GERD (gastroesophageal reflux disease): Code(s): K21.9 - Gastro-esophageal reflux disease without esophagitis Category: Medical Qualifiers: Esophagitis presence: esophagitis presence not specified Qualified Code(s): K21.9 - Gastro-esophageal reflux disease without esophagitis Plan Patient will start taking pantoprazole and stop omeprazole. Avoid dietary triggers and late night snacking. Staying upright for minimum 3 hours after meals discussed with patient. Patient will go for upper endoscopy. She is scheduled to go for upper GI series on April 08. Patient will take lpyn-gey-ihfirui fiber supplement dual action with pre and probiotic. Patient can take Senokot 2 tablets in the evening. Increase fluid intake and activity to promote better bowel motility. What to expect before during and after colonoscopy and endoscopies discussed with patient. Stressed the importance of good bowel prep and clear liquid diet day before procedure. I will see patient after the procedure, sooner on as needed basis. She is agreeable to this plan and verbalizes understanding of instructions. She was given the opportunity to ask questions and all questions answered. Thank you for allowing me to participate in her care Medications: New polyethylene glycol 3350 (Miralax) As directed by gastroenterology department at [facility] 238 grams PO ONCE 238 grams 0RF Z12.11 - Encounter for screening for malignant neoplasm of colon pantoprazole take one tablet half an hour before breakfast 40 mg PO DAILY 30 tabs 3RF K21.9 - Gastro-esophageal reflux disease without esophagitis Discontinued omeprazole Discontinued Reason: Doctor's Order 20 mg PO DAILY 30 caps 3RF sennosides Discontinued Reason: Doctor's Order 17.2 mg (2 x 8.6 mg) PO BEDTIME 60 tabs 3RF constipation K59.00 - Constipation, unspecified Coding Level of Care Code Est Pt Level 4 (94876) Complex EM visit Add On G2211 Diagnoses Alternating constipation and diarrhea R19.8 Epigastric pain R10.13 Abdominal location: epigastric Functional diarrhea K59.1 Diarrhea type: functional diarrhea Right lower quadrant pain R10.31 Screening for colon cancer Z12.11 Gastroesophageal reflux disease, unspecified whether esophagitis present K21.9 Esophagitis presence: esophagitis presence not specified Time Spent (min) 35 Comment 25 minutes spent with patient and additional 10 minutes spent reviewing her records
[2025-03-19 13:52] VITALS: BP 144/78; PULSE 67; BMI 41.0
== END 2025-03-19 14:36 | disposition home or self-care (01) ==
LOC: HO.HGI 13:46
PROVIDERS: PCP Family Medicine; Visit Provider Nurse Practitioner Family
DX: K21.9 Gastro-esophageal reflux disease without esophagitis (principal); K58.2 Mixed irritable bowel syndrome
CPT/HCPCS: 99214

== ENCOUNTER 2025-04-08 08:43 | Outpatient (REF) | payer OTHER, SELFPAY ==
--- NOTE | ~2025-04-08 | FL_ITS ---
EXAMINATION: XR GI SERIES CLINICAL INFORMATION: Gastroesophageal reflux disease without esophagitis. COMPARISON: None available. TECHNIQUE: Routine upper GI contrast study was performed in upright and lying position. FINDINGS: Following oral administration of thick barium and effervescent granules and upright view there is normal propagation of bolus from the oral cavity through the pharynx, esophagus into stomach without any evidence of obstruction, narrowing or stricture. No extrinsic compression seen. The mucosal pattern of the esophagus is normal. No barium retention seen in the valleculae or piriform sinuses. The course, caliber and peristalsis of the stomach and the duodenal bulb and sweep is normal. There is evidence of previous gastric sleeve surgery. Small patulous medial gastric fundus or gastric diverticulum is noted just at the GE junction , below the diaphragm. FLUOROSCOPY TIME: 1 minute 45 seconds DOSE AREA PRODUCT: 65.9 uGy-m2 (microgray-meter squared) FL/FL upper GI w Ba Swallow IMPRESSION: Evidence of previous gastric sleeve surgery with a patulous gastric fundus or a gastric diverticulum noted at the GE junction below the diaphragm. Correlate with clinical history. The esophagus, rest of the stomach and the duodenum is normal. Electronically signed by: Beny Amor MD 04/08/2025 10:31 AM EDT
== END 2025-04-08 08:44 | disposition home or self-care (01) ==
LOC: HO.XRAY 08:43
PROVIDERS: PCP Family Medicine; Visit Provider Nurse Practitioner Family
DX: K21.9 Gastro-esophageal reflux disease without esophagitis (principal)
CPT/HCPCS: 74240

== ENCOUNTER → 2025-04-08 08:45 | Outpatient (BNV) | payer OTHER, SELFPAY | PROVIDERS: PCP Family Medicine; Visit Provider Radiology Diagnostic Radiology | DX: K21.9 Gastro-esophageal reflux disease without esophagitis (principal) | CPT/HCPCS: 74246 ==

== ENCOUNTER 2025-07-16 07:30 | Outpatient (REF) | payer OTHER, SELFPAY | END 2025-07-16 07:31 | disposition home or self-care (01) | LOC: HO.MAMMO 07:30 | PROVIDERS: PCP Family Medicine; Visit Provider Family Medicine | DX: Z12.31 Encounter for screening mammogram for malignant neoplasm of breast (principal) | CPT/HCPCS: 77063; 77067 ==

== ENCOUNTER → 2025-07-16 08:15 | Outpatient (BNV) | payer OTHER, SELFPAY | PROVIDERS: PCP Family Medicine; Visit Provider Internal Medicine | DX: Z12.31 Encounter for screening mammogram for malignant neoplasm of breast (principal) | CPT/HCPCS: 77063; 77067 ==

== ENCOUNTER 2025-07-29 08:30 | Outpatient (AMB) | payer OTHER, SELFPAY ==
--- NOTE | 2025-07-29 08:41 | MHC.PC.OV ---
Vital Signs 07/29/25 08:47 Height 5 ft 3 in Weight 232 lb BMI 41.1 BP 124/71 Blood Pressure Location Rt brachial Position Sitting Respiration 16 Pulse 69 Pulse Source Pulse Oximeter Temp 97.8 F Temp Source Oral Pulse Oximetry (%) 100 Oxygen Delivery Method Room Air Intake Visit Reasons: f/u HTN, chronic conditions Intake Note: patient here for follow up on HTN and chronic conditions Photograph Tinter Required: No Is last menstrual period known: No Post menopausal: No Patient : No Allergies house dust mite Allergy (Mild, Verified 07/29/25 08:45) Runny Nose Penicillins (PENICILLINS) Allergy (Unknown, Verified 07/29/25 08:45) THROAT SWELLING, urticaria, angiodema, difficult breathing pineapple Allergy (Unknown, Verified 07/29/25 08:45) Unknown pramipexole (From MIRAPEX) Allergy (Unknown, Verified 07/29/25 08:45) NAUSEA & VOMITING, DIARRHEA ropinirole (ROPINIROLE) Allergy (Unknown, Verified 07/29/25 08:45) NAUSEA & VOMITING, dizziness, weakness, anxiety Medication List - Last Reconciled 07/29/25 by Delfin Fuchs MD albuterol sulfate 90 mcg/actuation 1 inh inhalation NEEDED PRN 30 days arm brace (Wrist Brace) use every night betamethasone, augmented 0.05 % 1 appl topical BID 15 days ciclopirox 1% 1 ea topical DAILY 30 days fluticasone propionate 50 mcg/actuation 1 spray intranasal Q12H gabapentin (Neurontin) 300 - 600 mg (1 - 2 x 300 mg) PO BEDTIME lisinopril-hydrochlorothiazide 10-12.5 mg 1 tab PO DAILY 30 days pantoprazole 40 mg PO DAILY polyethylene glycol 3350 (Miralax) 17 grams PO DAILY 14 days polyethylene glycol 3350 (Miralax) 238 grams PO ONCE [wrist splint wear nightly and as much as possible throughout the day NS] Tobacco use date assessed: 07/29/25 Dental Screening Dental Screen Date: 07/29/25 Did you have a dental visit in the last 12 months?: Yes Did you have a dental problem in the last 6 months where you did not have access to dental care?: No Was dental information given to patient?: Patient has dentist HPI f/u HTN, chronic conditions HPI Details Patient returns today to follow-up hypertension Blood pressure 124/71 today. Was higher at last visit but she says she had not taken her medication. BMI still over 41 She is walking daily and working on weight loss but has not lost weight since last visit Patient notes unrestful sleep, snoring, restless legs and gasping while sleeping. [facility] Medical History (Updated 07/29/25 @ 09:25 by Delfin Fuchs MD) Hepatic steatosis Pain in joint involving multiple sites Acanthosis nigricans Hepatomegaly Low back pain Vitamin D deficiency Seborrheic dermatitis Asthma Uterine fibroid Anemia Routine adult health maintenance Surgical History (Updated 03/19/25 @ 13:53 by LADI Thompson) History of esophagogastroduodenoscopy (EGD) History of hysterectomy (~10/2022) History of sleeve gastrectomy History of myomectomy History of tonsillectomy H/O bilateral breast reduction surgery Family History Father DIVYA (obstructive sleep apnea) Diabetes HTN (hypertension) Mother Osteoporosis Hypoglycemia Cataract HTN (hypertension) Thyroid disease Maternal Aunt Breast cancer Maternal Grandmother Stroke Family/Other Lupus Other Mental health disorder Social History Household Members: None Housing: Apartment Are you a primary hospice patient care secretary to a significant other at home: No Do you presently have visiting nurse or other home services: No Alcohol intake: never Patient Tobacco Use Status: Never used Tobacco e-Cigarette/Vaping Use: Never Used Second Hand Smoke Exposure: No service: No Current occupational status: employed 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 occupational exposures/hazards: No Gender identity: Female Cognitive needs: No Hearing needs: No Vision needs: No Female Reproductive History Menstrual Age of Menarche: 12 Questionnaire Thrive Questionnaire Date Thrive assessed: 03/11/25 I am a: Patient What is your living situation today?: I have a steady place to live Within the past 12 months, did the food you bought not last and you didn't have the money to get more?: Never true Within the past 12 months, did you worry whether your food would run out before you got money to buy more?: Never true Do you have trouble paying for medicines?: No Do you have trouble getting transportation to medical appointments?: No Do you have trouble paying your heating and electricity bill?: No Do you have trouble taking care of your child, family member or friend?: No Do you have trouble with day-to-day activities such as bathing, preparing meals, shopping, managing finances, etc.?: No Are you currently unemployed and looking for a job?: No Are you interested in more education?: No Please select the resources that you would like help with: None Currently or been in a relationship where the following occur: No concerns reported THRIVE Score: 0 BEL-7 AMB Questionnaire BEL-7 Date BEL - 7 assessed: 03/11/25 Source: Developed by Drs. Dhaval Ely, Melanie Mckeon, Donny Macedo and colleagues, with an educational jose l from [employer]. Review of Systems Const Details: Sleep issues-see HPI Denies chills, Denies fatigue, Denies fever(s), Denies headache(s) and Denies weakness ENT Denies dizziness and Denies headache(s) Card Denies chest pain, Denies lightheadedness, Denies dyspnea and Denies other (Palpitations) Resp Denies cough, Denies dyspnea, Denies wheezing and Denies other ( shortness of breath) Musc Denies numbness and Denies tingling Neuro Denies dizziness, Denies headache(s), Denies numbness, Denies tingling, Denies paresthesias and Denies weakness Psych Denies anxiety and Denies depression Endo Denies fatigue Aller/Immun Denies wheezing Physical exam (Primary Care) Vital Signs: Last Vital Signs Temp 97.8 F 07/29/25 08:47 Pulse 69 07/29/25 08:47 Resp 16 07/29/25 08:47 BP 124/71 07/29/25 08:47 Pulse Ox 100 07/29/25 08:47 Oxygen Delivery Method Room Air 07/29/25 08:47 BMI result Body Mass Index 41.1 Tobacco/Smoking Status: Tobacco use Status Tobacco use date assessed 07/29/25 07/29/25 08:49 Patient Tobacco Use Status Never used Tobacco 07/29/25 08:43 e-Cigarette/Vaping Use Never Used 07/29/25 08:43 Thrive Assessment: Date of Thrive Assessment Date Thrive assessed 03/11/25 07/29/25 08:43 Currently or been in a relationship where the following occur: No concerns reported Const General: no acute distress and well developed Nutritional Appearance: well nourished Orientation/consciousness: patient oriented x3 HENMT Head: Yes normocephalic and Yes atraumatic Eyes General: appearance normal, both eyes and all related structures Pupils: Equal, round and reactive pupils present EOM: EOMs intact bilaterally Resp Effort & Inspection: normal respiratory effort Auscultation: clear to auscultation bilaterally Cardio Rate: regular rate Rhythm: regular rhythm Heart sounds: S1 normal heart sound present, S2 normal heart sound present, no gallops, no murmurs and no rubs Neuro General: patient oriented x3 and gait normal Cranial nerves: Yes Equal, round and reactive pupils present Psych Affect: normal affect Coding Level of Care Code Est Pt Level 4 (77611) Diagnoses Hypertension I10 Obesity E66.9 Restless leg syndrome G25.81 Sleep apnea G47.30 Assessment & Plan Assessment & Plan (1) Hypertension: Code(s): I10 - Essential (primary) hypertension Category: Medical Plan: Blood pressure is controlled. Goal is less than 140/90 Continue current medication regimen Continue working at exercise and weight loss (2) Obesity: Comment: history of sleeve gastrectomy 2017 Code(s): E66.9 - Obesity, unspecified Category: Medical Plan: Continue working at exercise and weight loss Walking about twice per week and she will try to increase this Patient also has sleep issues below and is referred to Sleep Medicine. If she is diagnosed with sleep apnea, will discuss GLP 1 medications for weight loss (3) Restless leg syndrome: Code(s): G25.81 - Restless legs syndrome Category: Medical Plan: Continue gabapentin (4) Sleep apnea: Code(s): G47.30 - Sleep apnea, unspecified Category: Medical Plan: On restful sleep with restless legs and also notes gasping while sleeping. Referred to Sleep Medicine Orders: Referrals Sleep Medicine Referral G47.30 - Sleep apnea, unspecified Medications: Refilled gabapentin (Neurontin) 300 - 600 mg (1 - 2 x 300 mg) PO BEDTIME 60 caps 5RF M79.7 - Fibromyalgia
[2025-07-29 08:47] VITALS: BP 124/71; PULSE 69; RESP 16; TEMP 36.6; O2SAT 100; BMI 41.1
== END 2025-07-29 09:24 | disposition home or self-care (01) ==
LOC: HO.HMCFM 08:30
PROVIDERS: PCP Family Medicine; Visit Provider Family Medicine
DX: I10 Essential (primary) hypertension (principal); E66.9 Obesity, unspecified; Z68.41 Body mass index [BMI] 40.0-44.9, adult; G25.81 Restless legs syndrome; G47.30 Sleep apnea, unspecified

== ENCOUNTER 2025-08-12 13:26 | Outpatient (AMB) | payer OTHER, SELFPAY ==
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
[2025-08-12 13:53] VITALS: BP 118/74; PULSE 77; O2SAT 99; BMI 40.8
== END 2025-08-12 14:44 | disposition home or self-care (01) ==
LOC: HO.HSMS 13:27
PROVIDERS: PCP Family Medicine; Visit Provider Physician Assistant Medical
DX: G47.19 Other hypersomnia (principal); M54.50 Low back pain, unspecified; M79.606 Pain in leg, unspecified
CPT/HCPCS: 99204

== ENCOUNTER 2025-08-13 08:35 | Outpatient (REF) | payer OTHER, SELFPAY | END 2025-08-13 08:36 | disposition home or self-care (01) | LOC: HO.WFDLDS 08:35 | PROVIDERS: Visit Provider Physician Assistant Medical | DX: Z13.89 Encounter for screening for other disorder (principal) ==

== ENCOUNTER 2025-08-13 09:07 | Outpatient (REF) | payer OTHER, SELFPAY ==
[2025-08-13 10:21] LABS: Hemoglobin A1C 178.1877 umol/L; Total Hemoglobin (HGBA1C) 4309.6865 umol/L
[2025-08-13 10:31] LABS: Ferritin 13 ng/mL (10-250)
[2025-08-13 10:44] LABS: Folate 6.7 ng/mL (> or = 4.0); Vitamin B12 543 pg/mL (200-900)
== END 2025-08-13 09:08 | disposition home or self-care (01) ==
LOC: HO.LAB 09:07
PROVIDERS: PCP Family Medicine; Visit Provider Physician Assistant Medical
DX: D75.1 Secondary polycythemia (principal); G47.9 Sleep disorder, unspecified; R53.83 Other fatigue; Z13.1 Encounter for screening for diabetes mellitus; Z13.6 Encounter for screening for cardiovascular disorders
CPT/HCPCS: 36415; 82306; 82607; 82728; 82746; 83036; 83090; 83921; 84207; 84425; 84443

== ENCOUNTER 2025-08-25 08:11 | Outpatient (AMB) | payer OTHER, SELFPAY ==
[2025-08-25 08:26] VITALS: BP 122/66; PULSE 84; TEMP 36.6; O2SAT 98; BMI 40.9
--- NOTE | 2025-08-25 08:26 | MHC.PC.OV ---
Vital Signs 08/25/25 08:26 Height 5 ft 3 in Weight 231 lb BMI 40.9 BP 122/66 Blood Pressure Location Rt brachial Position Sitting Pulse 84 Pulse Source Pulse Oximeter Temp 97.9 F Temp Source Oral Pulse Oximetry (%) 98 Oxygen Delivery Method Room Air Intake Visit Reasons: Sick visit Allergies house dust mite Allergy (Mild, Verified 08/25/25 08:28) Runny Nose Penicillins (PENICILLINS) Allergy (Unknown, Verified 08/25/25 08:28) THROAT SWELLING, urticaria, angiodema, difficult breathing pineapple Allergy (Unknown, Verified 08/25/25 08:28) Unknown pramipexole (From MIRAPEX) Allergy (Unknown, Verified 08/25/25 08:28) NAUSEA & VOMITING, DIARRHEA ropinirole (ROPINIROLE) Allergy (Unknown, Verified 08/25/25 08:28) NAUSEA & VOMITING, dizziness, weakness, anxiety Medication List - Last Reconciled 08/25/25 by Pretty Sousa, AUTOMATION MACHINE OPERATOR- albuterol sulfate 90 mcg/actuation 1 inh inhalation NEEDED PRN 30 days arm brace (Wrist Brace) use every night betamethasone, augmented 0.05 % 1 appl topical BID 15 days ciclopirox 1% 1 ea topical DAILY 30 days fluticasone propionate 50 mcg/actuation 1 spray intranasal Q12H gabapentin (Neurontin) 300 - 600 mg (1 - 2 x 300 mg) PO BEDTIME lisinopril-hydrochlorothiazide 10-12.5 mg 1 tab PO DAILY 30 days pantoprazole 40 mg PO DAILY polyethylene glycol 3350 (Miralax) 17 grams PO DAILY 14 days polyethylene glycol 3350 (Miralax) 238 grams PO ONCE thiamine HCl (vitamin B1) 100 mg PO DAILY 3 months MDD 100mg [wrist splint wear nightly and as much as possible throughout the day NS] Tobacco use date assessed: 07/29/25 Dental Screening Dental Screen Date: 07/29/25 HPI HPI Comments History of Present Illness Details Here today with URI Sx. Saturday sinus pressure wondered if it was allergy started w/ fever, chills sneezing, coughing sore throat worse when talking bodyaches Was exposed to sick contacts Was taking APAP and inhaler with short lived relief Exam Awake alert NAD Sclera and conjunctiva clear bilat Nares patent, turbinates within normal limits, no sinus tenderness with palpation bilat TM intact and clear bilat MMM, pharynx WNL RRR LS CTAB Plan: Supportive care Viral swab obtained [facility] Ibu [facility] for fever/pain. Use inhaler RTO edu provided. Total time spent caring for the patient today was 30 minutes. This includes time spent before the visit reviewing the chart, time spent during the visit, and time spent after the visit on documentation, reviewing laboratory results, diagnostic imaging, medications, performing a medically necessary evaluation, counseling on diagnoses, care coordination, ordering appropriate tests, ordering appropriate medications, review of tests performed by other providers, reporting test results with the patient, communication with other healthcare providers. [facility] Medical History Iron deficiency anemia GERD (gastroesophageal reflux disease) HTN (hypertension) RLS (restless legs syndrome) Fibromyalgia Hepatic steatosis Pain in joint involving multiple sites Acanthosis nigricans Hepatomegaly Low back pain Vitamin D deficiency Seborrheic dermatitis Asthma Uterine fibroid Surgical History History of esophagogastroduodenoscopy (EGD) History of hysterectomy (~10/2022) History of sleeve gastrectomy History of myomectomy History of tonsillectomy H/O bilateral breast reduction surgery Family History Father DIVYA (obstructive sleep apnea) Diabetes HTN (hypertension) Mother Osteoporosis Hypoglycemia Cataract HTN (hypertension) Thyroid disease Maternal Aunt Breast cancer Maternal Grandmother Stroke Family/Other Lupus Other Mental health disorder Social History Household Members: None Housing: Apartment Are you a primary patient care secretary to a significant other at home: No Do you presently have visiting nurse or other home services: No Alcohol intake: never Patient Tobacco Use Status: Never used Tobacco e-Cigarette/Vaping Use: Never Used Second Hand Smoke Exposure: No service: No Current occupational status: employed 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 Dhaval Ely, Melanie Mckeon, Donny Macedo and colleagues, with an educational jose l from [employer]. Physical exam (Primary Care) Tobacco/Smoking Status: Tobacco use Status Tobacco use date assessed 07/29/25 07/29/25 08:49 Patient Tobacco Use Status Never used Tobacco 07/29/25 08:43 e-Cigarette/Vaping Use Never Used 07/29/25 08:43 Thrive Assessment: Date of Thrive Assessment Date Thrive assessed 03/11/25 07/29/25 08:43 Coding Level of Care Code Est Pt Level 4 (37148) Complex EM visit Add On G2211 Diagnoses Upper respiratory symptom R09.89 Assessment & Plan Assessment & Plan (1) Upper respiratory symptom: Code(s): R09.89 - Other specified symptoms and signs involving the circulatory and respiratory systems Category: Medical Plan . Orders: Orders Resp Pathogen Panel - [facility] Today R09.89 - Other specified symptoms and signs involving the circulatory and respiratory systems Medications: New benzonatate 100 mg PO TID PRN 30 caps 1RF cough 10 days ibuprofen 800 mg PO Q8H PRN 30 tabs 0RF pain or
== END 2025-08-25 08:41 | disposition home or self-care (01) ==
PROVIDERS: PCP Family Medicine; Visit Provider Nurse Practitioner Family
DX: R09.89 Other specified symptoms and signs involving the circulatory and respiratory systems (principal)

== ENCOUNTER 2025-08-25 08:11 | Outpatient (REF) | payer OTHER, SELFPAY ==
[2025-08-25 14:50] LABS: Chlamydia pneumoniae PCR Not Detected (Not Detect.); Coronavirus 229E PCR Not Detected (Not Detect.); Coronavirus HKU1 PCR Not Detected (Not Detect.); Coronavirus NL63 PCR Not Detected (Not Detect.); Coronavirus OC43 PCR Not Detected (Not Detect.); RSV PCR Not Detected (Not Detect.); Rhino/Enterovirus PCR Not Detected (Not Detect.)
[2025-08-25 14:51] LABS: Influenza A H1 PCR Not Detected (Not Detect.); Influenza A H1-2009 PCR Not Detected (Not Detect.); Influenza A H3 PCR Not Detected (Not Detect.); SARS-CoV-2 PCR Not Detected (Not Detect.)
== END 2025-08-25 08:12 | disposition home or self-care (01) ==
LOC: HO.LAB 08:11
PROVIDERS: PCP Family Medicine; Visit Provider Nurse Practitioner Family
DX: R09.89 Other specified symptoms and signs involving the circulatory and respiratory systems (principal)
CPT/HCPCS: 87633

== ENCOUNTER 2025-09-24 10:59 | Outpatient (AMB) | payer OTHER, SELFPAY ==
--- NOTE | 2025-09-24 11:39 | MHC.PC.OV ---
Vital Signs 09/24/25 11:43 Height 5 ft 3 in Weight 228 lb 2 oz BMI 40.4 BP 126/88 Blood Pressure Location Rt brachial Position Sitting Respiration 16 Pulse 75 Pulse Source Pulse Oximeter Temp 97.2 F Temp Source Temporal Artery Scan Pulse Oximetry (%) 97 Oxygen Delivery Method Room Air Intake Visit Reasons: sinus congestion, coughing and losing voice Intake Note: Marichuy presents in the office today for a sick visit. Sinus Congestion, coughing and losing voice. States she has had chills unsure of fever. Allergies house dust mite Allergy (Mild, Verified 09/24/25 11:41) Runny Nose Penicillins (PENICILLINS) Allergy (Unknown, Verified 09/24/25 11:41) THROAT SWELLING, urticaria, angiodema, difficult breathing pineapple Allergy (Unknown, Verified 09/24/25 11:41) Unknown pramipexole (From MIRAPEX) Allergy (Unknown, Verified 09/24/25 11:41) NAUSEA & VOMITING, DIARRHEA ropinirole (ROPINIROLE) Allergy (Unknown, Verified 09/24/25 11:41) NAUSEA & VOMITING, dizziness, weakness, anxiety Medication List - Last Reconciled 09/24/25 by Delfin Fuchs MD albuterol sulfate 90 mcg/actuation 1 inh inhalation NEEDED PRN 30 days arm brace (Wrist Brace) use every night benzonatate 100 mg PO TID PRN 10 days betamethasone, augmented 0.05 % 1 appl topical BID 15 days ciclopirox 1% 1 ea topical DAILY 30 days clindamycin HCl (Cleocin HCl) 300 mg PO TID 10 days fluticasone propionate 50 mcg/actuation 1 spray intranasal Q12H gabapentin (Neurontin) 300 - 600 mg (1 - 2 x 300 mg) PO BEDTIME ibuprofen 800 mg PO Q8H PRN lisinopril-hydrochlorothiazide 10-12.5 mg 1 tab PO DAILY 30 days pantoprazole 40 mg PO DAILY polyethylene glycol 3350 (Miralax) 17 grams PO DAILY 14 days polyethylene glycol 3350 (Miralax) 238 grams PO ONCE thiamine HCl (vitamin B1) 100 mg PO DAILY 3 months MDD 100mg [wrist splint wear nightly and as much as possible throughout the day NS] Tobacco use date assessed: 09/24/25 Dental Screening Dental Screen Date: 09/24/25 Did you have a dental visit in the last 12 months?: Yes Did you have a dental problem in the last 6 months where you did not have access to dental care?: No Was dental information given to patient?: Patient has dentist HPI sinus congestion, coughing and losing voice HPI Details 45 y/o female presents with complaints of sinus congestion, coughing, and loss of voice. Reports nasal discharge x2 weeks. Notes some coughing. Pt notes she loses her voice when she talks at times. HPI Comments History of Present Illness Details Documentation assistance for Delfin Fuchs MD, was provided by Gerson Kathleen,? Dress Cutter on 09/24/2025 at 12:26 PM EST. I, Dr. Fuchs, have read, observed, and verified documentation. ? [facility], [facility] Medical History Iron deficiency anemia GERD (gastroesophageal reflux disease) HTN (hypertension) RLS (restless legs syndrome) Fibromyalgia Hepatic steatosis Pain in joint involving multiple sites Acanthosis nigricans Hepatomegaly Low back pain Vitamin D deficiency Seborrheic dermatitis Asthma Uterine fibroid Surgical History History of esophagogastroduodenoscopy (EGD) History of hysterectomy (~10/2022) History of sleeve gastrectomy History of myomectomy History of tonsillectomy H/O bilateral breast reduction surgery Family History Father DIVYA (obstructive sleep apnea) Diabetes HTN (hypertension) Mother Osteoporosis Hypoglycemia Cataract HTN (hypertension) Thyroid disease Maternal Aunt Breast cancer Maternal Grandmother Stroke Family/Other Lupus Other Mental health disorder Social History (Updated 09/24/25 @ 11:43 by Isha Campbell CMA) Household Members: None Housing: Apartment Are you a primary rn care transition to a significant other at home: No Do you presently have visiting nurse or other home services: No Alcohol intake: never Patient Tobacco Use Status: Never used Tobacco e-Cigarette/Vaping Use: Never Used Second Hand Smoke Exposure: No Use of substances other than those prescribed or required for medical reasons: No service: No Current occupational status: employed Current occupation: [employer] Current occupational exposures/hazards: No Gender identity: Female Cognitive needs: No Hearing needs: No Vision needs: No Female Reproductive History Menstrual Age of Menarche: 12 Questionnaire Thrive Questionnaire Date Thrive assessed: 03/11/25 I am a: Patient What is your living situation today?: I have a steady place to live Within the past 12 months, did the food you bought not last and you didn't have the money to get more?: Never true Within the past 12 months, did you worry whether your food would run out before you got money to buy more?: Never true Do you have trouble paying for medicines?: No Do you have trouble getting transportation to medical appointments?: No Do you have trouble paying your heating and electricity bill?: No Do you have trouble taking care of your child, family member or friend?: No Do you have trouble with day-to-day activities such as bathing, preparing meals, shopping, managing finances, etc.?: No Are you currently unemployed and looking for a job?: No Are you interested in more education?: No Please select the resources that you would like help with: None Currently or been in a relationship where the following occur: No concerns reported THRIVE Score: 0 BEL-7 AMB Questionnaire BEL-7 Date BEL - 7 assessed: 03/11/25 Source: Developed by Drs. Dhaval Ely, Melanie Mckeon, Donny Macedo and colleagues, with an educational jose l from [employer]. Review of Systems Const Denies chills, Denies fatigue, Denies fever(s), Denies headache(s) and Denies weakness ENT Denies dizziness, Denies headache(s), Reports nasal discharge and Reports sore throat Card Denies dyspnea Resp Denies cough, Denies dyspnea and Denies wheezing Musc Denies numbness and Denies tingling Neuro Denies dizziness, Denies headache(s), Denies numbness, Denies tingling and Denies weakness Psych Denies anxiety and Denies depression Endo Denies fatigue Aller/Immun Denies wheezing Physical exam (Primary Care) Vital Signs: Last Vital Signs Temp 97.2 F 09/24/25 11:43 Pulse 75 09/24/25 11:43 Resp 16 09/24/25 11:43 BP 126/88 09/24/25 11:43 Pulse Ox 97 09/24/25 11:43 Oxygen Delivery Method Room Air 09/24/25 11:43 BMI result Body Mass Index 40.4 Tobacco/Smoking Status: Tobacco use Status Tobacco use date assessed 09/24/25 09/24/25 11:46 Patient Tobacco Use Status Never used Tobacco 09/24/25 11:43 e-Cigarette/Vaping Use Never Used 09/24/25 11:43 Thrive Assessment: Date of Thrive Assessment Date Thrive assessed 03/11/25 09/24/25 11:41 Currently or been in a relationship where the following occur: No concerns reported Const General: well developed; No acute distress Nutritional Appearance: well nourished Orientation/consciousness: patient oriented x3 HENMT Other: Nasal congestion with sinus tenderness, pain Positive transillumination of maxillary sinuses Head: Yes normocephalic and Yes atraumatic Eyes General: appearance normal, both eyes and all related structures Pupils: Equal, round and reactive pupils present EOM: EOMs intact bilaterally Resp Effort & Inspection: normal respiratory effort Neuro General: patient oriented x3 and gait normal Cranial nerves: Yes Equal, round and reactive pupils present Psych Affect: normal affect Coding Level of Care Code Est Pt Level 3 (65694) Diagnoses Allergies T78.40XA Sinusitis J32.9 Assessment & Plan Assessment & Plan (1) Allergies: Code(s): T78.40XA - Allergy, unspecified, initial encounter Category: Medical (2) Sinusitis: Code(s): J32.9 - Chronic sinusitis, unspecified Category: Medical Plan Sore throat and severe nasal congestion with sinus tenderness and pain. Centor score 0 and patient has cough and no exudates. Low likelihood for strep Positive transillumination of maxillary sinuses Will send script for clindamycin Hydrate well and get plenty of rest. Will keep patient on work until next Saturday. Use nasal saline and nasal steroid Finish all antibiotic. Medications: New clindamycin HCl (Cleocin HCl) 300 mg PO TID 10 days 30 caps 0RF clindamycin HCl (Cleocin HCl) 300 mg PO TID 30 caps 0RF 10 days
[2025-09-24 11:43] VITALS: BP 126/88; PULSE 75; RESP 16; TEMP 36.2; O2SAT 97; BMI 40.4
== END 2025-09-24 12:26 | disposition home or self-care (01) ==
LOC: HO.HMCFM 11:00
PROVIDERS: PCP Family Medicine; Visit Provider Family Medicine
DX: T78.40XA Allergy, unspecified, initial encounter (principal); J32.9 Chronic sinusitis, unspecified

== ENCOUNTER 2025-10-08 07:34 | Outpatient (AMB) | payer OTHER, SELFPAY ==
--- NOTE | 2025-10-08 07:39 | MHC.OFFVIS ---
Vital Signs 10/08/25 07:46 Height 5 ft 3 in Weight 227 lb 8.273 oz BMI 40.3 BP 140/80 H Blood Pressure Location Lt brachial Position Sitting Pulse 75 Pulse Source Pulse Oximeter Pulse Oximetry (%) 99 Oxygen Delivery Method Room Air Intake Visit Reasons: follow up Intake Note: Patient presents for Fibromyalgia follow up. Allergies house dust mite Allergy (Mild, Verified 10/08/25 07:44) Runny Nose Penicillins (PENICILLINS) Allergy (Unknown, Verified 10/08/25 07:44) THROAT SWELLING, urticaria, angiodema, difficult breathing pineapple Allergy (Unknown, Verified 10/08/25 07:44) Unknown pramipexole (From MIRAPEX) Allergy (Unknown, Verified 10/08/25 07:44) NAUSEA & VOMITING, DIARRHEA ropinirole (ROPINIROLE) Allergy (Unknown, Verified 10/08/25 07:44) NAUSEA & VOMITING, dizziness, weakness, anxiety HPI Comments Details: Patient is a 45-year-old female morbidly obese with hypertension, asthma, restless legs syndrome, history of abnormal uterine bleeding status post hysterectomy and bilateral oophorectomy 2 years ago, and fibromyalgia who is here today for follow-up. Interval History: Patient last seen 09/25/2024 with me - On Gabapentin 300 - 600mg nightly - She says that the shoulder pains have improved with physical therapy. Previously she was not able to lift her hand over her head but now she is able to do so bit. - She continues to have pain involving her low back. - Denies prolonged morning stiffness or isolated swelling to the joints. States that sometimes her sleep is poor because of her restless leg syndrome which she takes gabapentin for. - No changes made to medication Today - On gabapentin 300mg - 600mg nightly - Stable overall, still with continued pain - Main complaint today is muscle tension in the mid back while working Rheumatologic History: Patient established care 08/13/2022. At that time she was complain of multiple areas of pain involving her fingers, hands, wrists, knees, legs, toes and lateral hips. This pain has been going on for several years as well as fatigue. Exam at that time did not show any evidence of inflammatory arthritis and she was diagnosed with fibromyalgia. Serologies were checked including C-reactive protein, rheumatoid factor, ESR, JAKY as well as CCP which were all negative. Current Rheumatology Medication(s): Gabapentin 300 - 600mg at night PFS Medical History Iron deficiency anemia GERD (gastroesophageal reflux disease) HTN (hypertension) RLS (restless legs syndrome) Fibromyalgia Hepatic steatosis Pain in joint involving multiple sites Acanthosis nigricans Hepatomegaly Low back pain Vitamin D deficiency Seborrheic dermatitis Asthma Uterine fibroid Surgical History History of esophagogastroduodenoscopy (EGD) History of hysterectomy (~10/2022) History of sleeve gastrectomy History of myomectomy History of tonsillectomy H/O bilateral breast reduction surgery Family History Father DIVYA (obstructive sleep apnea) Diabetes HTN (hypertension) Mother Osteoporosis Hypoglycemia Cataract HTN (hypertension) Thyroid disease Maternal Aunt Breast cancer Maternal Grandmother Stroke Family/Other Lupus Other Mental health disorder Social History (Updated 09/24/25 @ 11:43 by Isha Campbell [facility]) Household Members: None Housing: Apartment Are you a primary child day care provider to a significant other at home: No Do you presently have visiting nurse or other home services: No Alcohol intake: never Patient Tobacco Use Status: Never used Tobacco e-Cigarette/Vaping Use: Never Used Second Hand Smoke Exposure: No service: No Current occupational status: employed Current occupation: [email or web address] Current occupational exposures/hazards: No Gender identity: Female Cognitive needs: No Hearing needs: No Vision needs: No Female Reproductive History Menstrual Age of Menarche: 12 Review of Systems Narrative Review of Systems Constitutional: Denies fever, chills, weight loss ENT: Denies vision changes, eye pain or eye redness, dental caries, dry mouth GI: Denies nausea, vomiting, diarrhea, abdominal pain, change in BM Pulm: Denies SOB, ANTHONY, hemoptysis, wheezing Cards: Denies chest pain, palpitations Skin: Denies Raynaud's, rash, nail changes, photosensitivity, [employer]: Denies headaches, weakness, paresthesias, recurrent falls MSK: as per HPI All other systems reviewed and are unremarkable except noted above Physical Exam Exam Exam: Vital signs reviewed Physical Examination CONSTITUITIONAL Patient alert and cooperative. Well appearing and in no apparent painful distress MSK Hands Right Hand: Able to make a fist. No swelling or tenderness to palpation of the MCPs, PIPs or DIPs. Left Hand: Able to make a fist. No swelling or tenderness to palpation of the MCPs, PIPs or DIPs. Wrists Right Wrist: Full ROM to flexion and extension. No swelling or TTP Left Wrist: Full ROM to flexion and extension. No swelling or TTP Elbows Right Elbow: Full ROM. No swelling or TTP. No TTP of the medial epicondyle. No TTP of the lateral epicondyle Left Elbow: Full ROM. No swelling or TTP. No TTP of the medial epicondyle. No TTP of the lateral epicondyle Shoulders Right shoulder: Full ROM. No swelling noted. No TTP of the AC joint. No TTP of the subacromial bursa. No TTP of the posterior shoulder Left shoulder: Full ROM. No swelling noted. No TTP of the AC joint. No TTP of the subacromial bursa. No TTP of the posterior shoulder Knees Right knee: Full ROM. No swelling noted. No TTP of the knee joint line. No TTP of pes anserine bursa Left knee: Full ROM. No swelling noted. No TTP of the knee joint line. No TTP of pes anserine bursa. Ankles Right ankle: Good ankle dorsiflexion and plantar flexion. No swelling. No TTP of the ankle joint Left ankle: Good ankle dorsiflexion and plantar flexion. No swelling. No TTP of the ankle joint Feet Right foot: Negative squeeze test Left foot: Negative squeeze test Tender points? No tenderness to palpation of the bilateral trapezius, supraspinatus, anterior costochondral junctions, bilateral suboccipital muscle insertions SKIN No rashes Results Reviewed Results Reviewed: Laboratory Tests 02/27/24 03/04/25 08/13/25 14:47 09:58 09:51 WBC 3.6 L RBC 4.15 L Hgb 12.3 Hct 37.6 Plt Count 278 ESR 25 H Sodium 143 Potassium 3.9 Chloride 110 H Carbon Dioxide 27 BUN 9 Creatinine 0.63 AST 21 ALT 14 25-OH Vitamin D Total 25.5 L Assessment & Plan Assessment & Plan (1) Fibromyalgia: Code(s): M79.7 - Fibromyalgia Category: Medical Plan: #Fibromyalgia Patient is a 45-year-old female with fibromyalgia here today for follow up Her complaints today of pain over the right scapula while at work are likely positional related to how she is holding her self at her desk. Recommend having an ergonomic assessment at her job Reassured her that overall there is nothing to be concerned about as this seems to be something related to positional changes. Overall patient is stable. Recommended that we do yearly follow up since I am prescribing her gabapentin. Also note made of her low vitamin-D and recommended that she take [id number] supplements for this Plan - Gabapentin 300mg - vitamin-D supplementation - RTC 1 year Plan I spent 20 minutes reviewing the record and labs, seeing the patient, discussing the treatment plan and documenting in the medical record ? Coding Level of Care Code Est Pt Level 3 (70402) Complex EM visit Add On [id number] Diagnoses Fibromyalgia M79.7
[2025-10-08 07:46] VITALS: BP 140/80; PULSE 75; O2SAT 99; BMI 40.3
== END 2025-10-08 08:02 | disposition home or self-care (01) ==
LOC: HO.RHES 07:35
PROVIDERS: PCP Family Medicine; Visit Provider Student in an Organized Health Care Education/Training Program
DX: M79.7 Fibromyalgia (principal)
CPT/HCPCS: 99213

== ENCOUNTER → 2025-10-13 21:00 | Outpatient (BNV) | payer OTHER, SELFPAY | PROVIDERS: PCP Family Medicine; Visit Provider Psychiatry & Neurology Neurology | DX: R40.0 Somnolence (principal); R06.83 Snoring | CPT/HCPCS: 95810 ==

== ENCOUNTER → 2025-10-13 21:02 | Outpatient (REF) | payer OTHER, SELFPAY | LOC: HO.SL 21:02 | PROVIDERS: PCP Family Medicine; Visit Provider Physician Assistant Medical | DX: G47.19 Other hypersomnia (principal); R06.83 Snoring | CPT/HCPCS: 95810 ==

== ENCOUNTER 2025-11-04 09:49 | Outpatient (AMB) | payer OTHER, SELFPAY ==
--- NOTE | 2025-11-04 10:05 | MHC.PC.OV ---
Vital Signs 11/04/25 10:10 Height 5 ft 3 in Weight 221 lb 4 oz BMI 39.2 BP 135/65 Blood Pressure Location Lt brachial Position Sitting Respiration 16 Pulse 60 Pulse Source Pulse Oximeter Temp 97.9 F Temp Source Oral Pulse Oximetry (%) 98 Oxygen Delivery Method Room Air Intake Visit Reasons: Follow-up hypertension, weight and sleep apnea Intake Note: patient here for follow up on Hypertension, weight and sleep apnea Podiatric Assistant Required: No Is last menstrual period known: No Post menopausal: No Patient : No Allergies house dust mite Allergy (Mild, Verified 11/04/25 10:08) Runny Nose Penicillins (PENICILLINS) Allergy (Unknown, Verified 11/04/25 10:08) THROAT SWELLING, urticaria, angiodema, difficult breathing pineapple Allergy (Unknown, Verified 11/04/25 10:08) Unknown pramipexole (From MIRAPEX) Allergy (Unknown, Verified 11/04/25 10:08) NAUSEA & VOMITING, DIARRHEA ropinirole (ROPINIROLE) Allergy (Unknown, Verified 11/04/25 10:08) NAUSEA & VOMITING, dizziness, weakness, anxiety Tobacco use date assessed: 11/04/25 Dental Screening Dental Screen Date: 11/04/25 Did you have a dental visit in the last 12 months?: No Did you have a dental problem in the last 6 months where you did not have access to dental care?: No Was dental information given to patient?: Patient has dentist HPI Follow-up hypertension, weight and sleep apnea HPI Details 45 y/o female presents to f/u HTN, weight, sleep apnea. BP today 135/65, 60p. She is on lisinopril-HCTZ 10-12.5mg daily. Pt notes she has been eating better and exercising more. Ongoing complaints of GERD. She is on pantoprazole 40mg daily. HPI Comments History of Present Illness Details Documentation assistance for Delfin Fuchs MD, was provided by Gerson Kathleen, Sales Account Leader on 11/04/2025 at 10:38 AM MICKIE. I, Dr. Fuchs, have read, observed, and verified documentation. [facility] Medical History Iron deficiency anemia GERD (gastroesophageal reflux disease) HTN (hypertension) RLS (restless legs syndrome) Fibromyalgia Hepatic steatosis Pain in joint involving multiple sites Acanthosis nigricans Hepatomegaly Low back pain Vitamin D deficiency Seborrheic dermatitis Asthma Uterine fibroid Surgical History History of esophagogastroduodenoscopy (EGD) History of hysterectomy (~10/2022) History of sleeve gastrectomy History of myomectomy History of tonsillectomy H/O bilateral breast reduction surgery Family History Father DIVYA (obstructive sleep apnea) Diabetes HTN (hypertension) Mother Osteoporosis Hypoglycemia Cataract HTN (hypertension) Thyroid disease Maternal Aunt Breast cancer Maternal Grandmother Stroke Family/Other Lupus Other Mental health disorder Social History Household Members: None Housing: Apartment Are you a primary care rep to a significant other at home: No Do you presently have visiting nurse or other home services: No Alcohol intake: never Patient Tobacco Use Status: Never used Tobacco e-Cigarette/Vaping Use: Never Used Second Hand Smoke Exposure: No Patient : No service: No Current occupational status: employed Current occupation: [employer] Current occupational exposures/hazards: No Gender identity: Female Cognitive needs: No Hearing needs: No Vision needs: No Female Reproductive History Menstrual Age of Menarche: 12 Questionnaire Thrive Questionnaire Date Thrive assessed: 03/11/25 I am a: Patient What is your living situation today?: I have a steady place to live Within the past 12 months, did the food you bought not last and you didn't have the money to get more?: Never true Within the past 12 months, did you worry whether your food would run out before you got money to buy more?: Never true Do you have trouble paying for medicines?: No Do you have trouble getting transportation to medical appointments?: No Do you have trouble paying your heating and electricity bill?: No Do you have trouble taking care of your child, family member or friend?: No Do you have trouble with day-to-day activities such as bathing, preparing meals, shopping, managing finances, etc.?: No Are you currently unemployed and looking for a job?: No Are you interested in more education?: No Please select the resources that you would like help with: None Currently or been in a relationship where the following occur: No concerns reported THRIVE Score: 0 BEL-7 AMB Questionnaire BEL-7 Date BEL - 7 assessed: 03/11/25 Source: Developed by Drs. Dhaval Ely, Melanie Mckeon, Donny Macedo and colleagues, with an educational jose l from [employer]. Review of Systems Const Denies chills, Denies fatigue, Denies fever(s), Denies headache(s) and Denies weakness ENT Denies dizziness and Denies headache(s) Card Denies dyspnea Resp Denies cough, Denies dyspnea, Denies wheezing and Denies other (shortness of breath) Musc Denies numbness and Denies tingling Neuro Denies dizziness, Denies headache(s), Denies numbness, Denies tingling and Denies weakness Psych Denies anxiety and Denies depression Endo Denies fatigue Aller/Immun Denies wheezing Physical exam (Primary Care) Vital Signs: Last Vital Signs Temp 97.9 F 11/04/25 10:10 Pulse 60 11/04/25 10:10 Resp 16 11/04/25 10:10 BP 135/65 11/04/25 10:10 Pulse Ox 98 11/04/25 10:10 Oxygen Delivery Method Room Air 11/04/25 10:10 BMI result Body Mass Index 39.2 Tobacco/Smoking Status: Tobacco use Status Tobacco use date assessed 11/04/25 11/04/25 10:13 Patient Tobacco Use Status Never used Tobacco 11/04/25 10:06 e-Cigarette/Vaping Use Never Used 11/04/25 10:06 Thrive Assessment: Date of Thrive Assessment Date Thrive assessed 03/11/25 11/04/25 10:06 Currently or been in a relationship where the following occur: No concerns reported Const General: well developed; No acute distress Nutritional Appearance: well nourished Orientation/consciousness: patient oriented x3 HENMT Head: Yes normocephalic and Yes atraumatic Eyes General: appearance normal, both eyes and all related structures Pupils: Equal, round and reactive pupils present EOM: EOMs intact bilaterally Resp Effort & Inspection: normal respiratory effort Neuro General: patient oriented x3 and gait normal Cranial nerves: Yes Equal, round and reactive pupils present Psych Affect: normal affect Coding Level of Care Code Est Pt Level 4 (99174) Diagnoses Hypertension I10 Obesity E66.9 Sleep apnea G47.30 Gastroesophageal reflux disease, unspecified whether esophagitis present K21.9 Esophagitis presence: esophagitis presence not specified Assessment & Plan Assessment & Plan (1) Hypertension: Code(s): I10 - Essential (primary) hypertension Category: Medical Plan: Blood pressure is controlled. Goal is less than 140/90 Continue current medication Continue weight loss Watch salt and sodium (2) Obesity: Comment: history of sleeve gastrectomy 2017 Code(s): E66.9 - Obesity, unspecified Category: Medical Plan: Patient has lost about 10 lb over the last few months through diet and exercise Encouraged ongoing weight loss (3) Sleep apnea: Code(s): G47.30 - Sleep apnea, unspecified Category: Medical Plan: Patient had her sleep study and has an appointment to follow-up with sleep medicine next week (4) GERD (gastroesophageal reflux disease): Code(s): K21.9 - Gastro-esophageal reflux disease without esophagitis Category: Medical Qualifiers: Esophagitis presence: esophagitis presence not specified Qualified Code(s): K21.9 - Gastro-esophageal reflux disease without esophagitis Plan: Worsened GERD symptoms Patient says she is out of pantoprazole Refilled pantoprazole Follow-up with GI as recommended Orders: Orders Complete Blood Count Auto Diff Today Z00.00 - Encounter for general adult medical examination without abnormal findings Comprehensive [place]. Panel Fast Today Z00.00 - Encounter for general adult medical examination without abnormal findings Lipid Panel Today Z00.00 - Encounter for general adult medical examination without abnormal findings Microalbumin, Random (w Creat) Today I10 - Essential (primary) hypertension UA CC w/rflx Micro + Cult Today Z00.00 - Encounter for general adult medical examination without abnormal findings TSH reflex Free T4 Today Z00.00 - Encounter for general adult medical examination without abnormal findings Medications: Changed From lisinopril-hydrochlorothiazide 10-12.5 mg 1 tab PO DAILY 30 days 30 tabs 3RF To lisinopril-hydrochlorothiazide 10-12.5 mg 1 tab PO DAILY 90 tabs 3RF 90 days Refilled pantoprazole take one tablet half an hour before breakfast 40 mg PO DAILY 30 tabs 3RF K21.9 - Gastro-esophageal reflux disease without esophagitis
[2025-11-04 10:10] VITALS: BP 135/65; PULSE 60; RESP 16; TEMP 36.6; O2SAT 98; BMI 39.2
== END 2025-11-04 10:43 | disposition home or self-care (01) ==
LOC: HO.HMCFM 09:50
PROVIDERS: PCP Family Medicine; Visit Provider Family Medicine
DX: I10 Essential (primary) hypertension (principal); E66.9 Obesity, unspecified; Z68.39 Body mass index [BMI] 39.0-39.9, adult; G47.30 Sleep apnea, unspecified; K21.9 Gastro-esophageal reflux disease without esophagitis